=== PATIENT | male | born 1960 | race Caucasian/White ===

== ENCOUNTER 2017-03-24 18:39 | Inpatient (IN) | payer OTHER ==
--- NOTE | ~2017-03-24 | FU ---
[facility] Nutrition Therapy DATE: 04/13/17 Patient: JAVI RODRIGUEZ Physician: LASHANDA Address: [address] [place] [address] Room/Bed: [address] [place] [address], Zip: [place] [address] Admit Date: 03/24/17 Date of : 58 Height: 5 10 Weight: 158 72 NUTRITION MONITORING/FOLLOW-UP: Reason: nutrition follow-up 56 y/o male admitted for pancreatitis Anthropometrics: ht: 5'10" wt: 158# BMI: 18 -Previous weight 127#-165#, fluid retention noted Labs: Na+ 133, BUN 7, Creat 0.5, Ca++ 7.7, Alb 1.4 Meds: protonix, seroquel, aldactone, furosemide, lovenox, percocet, lopressor I&O's: 2400/1401. 1 BM Skin: previously noted Estimated Nutrition Needs: 1613 kcal 77-96 g protein Assessment: Chart reviewed, events noted. Pt seen previously in ICU, receiving enteral nutrition support. The pt is now on the floor on a slick + Dental + NTL diet. RD spoke with pt and pt at bedside. Pt reports eating 75-100% of both his breakfast and lunch. Pt reports that he is feeling much better. Pt was sitting up and talking. The pt did report some nausea. RD internal auditor offered to order supplements to ensure adequate PO intake and pt agreed to ensure pudding and magic cup BID. Pt had no questions at this time. RD will continue to follow. Dx: Inadequate oral intake r/t current clinical condition AEB NPO status, pt on vent -RESOLVED Inadequate nutrient intake r/t enteral nutrition intolerance AEB high residuals -RESOLVED New Dx: Adequate oral intake r/t diet advancement AEB pt reported tolerance of >50% of meals Intervention: 1. [place] + dental + [place] thickened liquids Monitoring, Evaluation and Goals: 1. Enteral nutrition; tolerate >80% of goal volume x 24 hours -MET/ NOT ACTIVE 2. Weights; promote weight maintenance to remain healthy BMI -IN PROGRESS 3. GI; promote regular GI function -IN PROGRESS/ MET [facility] Nutrition Therapy DATE: 04/13/17 Patient: JAVI RODRIGUEZ Physician: LASHANDA Address: [address] [place] [address] Room/Bed: [address] [place] [address], Zip: [place] [address] Admit Date: 03/24/17 Date of : 58 Height: 5 10 Weight: 158 72 New Goals: 1. Oral intake; consume tolerate >50% of all meals and/or supplements Monitor: -diet advancement -oral intake -weight -GI function -labs Recommendations: 1. Ensure pudding once a day and magic cup with dinner. 2. Once diet is advanced, recommend low-fat/high-protein diet. 3. Continue PUSH BENCH OPERATOR HELPER evaluation for diet advancement. RD will f/u per protocol as pt is at moderate nutritional risk. Respectfully, GENESIS ISBELL, editing internship Huey Wharton MS, RD, LD Food and Nutritional Services [facility] cc: client file
--- NOTE | ~2017-03-24 | CR72 ---
[facility] A Service of [facility] & [facility] RADIOLOGY TEXT RESULTS PATIENT: JAVI RODRIGUEZ LOCATION: [address]23 : [birth year] UNIT #: [id number] AGE: [address]: Milagros Palumbo MD SEX: M ORDER DR: [id number] [facility] [address] [facility] [address]. [place], [place] [address] [id number] I MR#: [id number] Acc #: [id number] NAME: JAVI RODRIGUEZ. : 1960 SEX: M STUDY DATE/TIME: 04/03/2017 19:02 UNIT: [facility] ROOM: [facility] STUDY DESCRIPTION: CR Chest Single View Portable Attending Physician: Milagros Palumbo M.D. Ordering Physician: Milagros Palumbo M.D. Primary Care Physician: Noe Alexandre M.D. MEDICAL IMAGING REPORT This report is preliminary unless electronic signature is present EXAM Portable chest HISTORY Pulmonary congestion today. Shortness of air. Tracheostomy placement. FINDINGS Tracheostomy has been placed since 04/01/2017 with its tip now 7.5 cm above the juve. The ETT has been removed. Remainder of the support devices appear in stable position. Persistent moderate infiltrates or atelectasis in the left mid and lower lung and in the right lower lung. Stable elevation of the right hemidiaphragm. Dictated by... Federico Buchanan M.D. THIS IS AN ELECTRONICALLY VERIFIED REPORT Federico Buchanan M.D. at 04/03/2017 10:53 PM DFL/alber TD: 04/03/2017 22:44 JOB #: [id number] MEDICAL IMAGING REPORT Page 1 of 1 COPY
--- NOTE | ~2017-03-24 | OR ---
Unit #: [id number] #: [id number] Patient: JAVI RODRIGUEZ [id number] [address] [address] [id number] I MR#: [id number] NAME: JAVI RODRIGUEZ. ROOM: 467 Date of Procedure: 03/26/2017 Admission Date: 03/24/2017 Surgeon: Andre Lino M.D. : 1960 Attending Physician: Milagros Palumbo M.D. Primary Care Physician: Noe Alexandre M.D. OPERATIVE REPORT PRIMARY CARE PHYSICIAN Noe Alexandre M.D. PREOPERATIVE DIAGNOSES The patient presented with history of upper abdominal pain, postprandial dyspepsia. In addition, he also abuses alcohol, has longstanding history of chronic recurrent relapsing pancreatitis. PROCEDURES PERFORMED Upper gastrointestinal endoscopy and biopsy. POSTOPERATIVE DIAGNOSES 1. The patient had moderately severe gastritis involving the prepyloric antral area. 2. There was also evidence of duodenitis involving the duodenal bulb. 3. Changes of portal hypertensive gastropathy involving the fundic mucosa. RECOMMENDATIONS The patient will undergo ERCP shortly. SEDATION USED MAC. DESCRIPTION OF PROCEDURE Following detailed explanation of the potential risks and complications of an upper endoscopy, namely perforation, bleeding, and complication related to sedation, the patient was brought to GI lab and laid in the left lateral decubitus position. Lubricated tip of the Olympus video upper endoscope was passed through the bite block into the proximal esophagus under direct vision. The entire esophageal mucosa was examined and appeared normal. Z-line was nicely demarcated, there being no esophagitis or hiatus hernia. The patient did not have any esophageal varices. The scope was then advanced into the gastric cavity and the latter was insufflated. Mucosa of the fundus, body, and antrum was examined. Changes of portal hypertensive gastropathy were noted in the fundic mucosa. In addition, mild antral erythema was noted. Pylorus was intubated with visualization of the duodenal bulb. The latter was noted to have focal patchy erosive duodenitis. Second and third part of duodenum were also abnormal and the mucosa being quite edematous. Upon withdrawal and retroflexion, incisura, cardia, and greater curve was examined and biopsy was obtained from the antrum for CLOtest. The scope was then withdrawn in the distal esophagus. Entire esophageal mucosa was Unit #: [id number] #: [id number] Patient: MICHAELJAVI Allan examined all the way up to pharynx. No additional findings were noted. The patient tolerated the procedure without any postprocedure complications. Dictated by... Alex Wang TD: 03/27/2017 16:40 JOB #: [id number] OPERATIVE REPORT Page 1 of 1 X Andre Lino MD X PROCEDURE OPERATIVE NOTE
--- NOTE | ~2017-03-24 | CT4 ---
[facility] A Service of [facility] RADIOLOGY TEXT RESULTS PATIENT: JAVI RODRIGUEZ LOCATION: [address] : [birth year] UNIT #: [id number] AGE: [address]: Milagros Palumbo MD SEX: M ORDER DR: [id number] [facility] [address] [facility]. [place], [place] [address] [id number] I MR#: [id number] Acc #: [id number] NAME: JAVI RODRIGUEZ. : 1960 SEX: M STUDY DATE/TIME: 04/05/2017 20:09 UNIT: [facility] ROOM: [facility] STUDY DESCRIPTION: CT Abd and Pelv Wo Cont Attending Physician: Milagors Palumbo M.D. Ordering Physician: Andre Lino M.D. Primary Care Physician: Noe Alexandre M.D. MEDICAL IMAGING REPORT This report is preliminary unless electronic signature is present EXAM CT abdomen and pelvis without contrast HISTORY Abdominal pain for 2 weeks. History of COPD, vomiting. COMPARISON 03/24/2017 TECHNIQUE Axial images performed through the abdomen and pelvis with oral contrast only. Multiplanar reconstructed images reviewed at a workstation. This CT exam was performed with one or more of the following radiation dose reduction techniques: automatic exposure control, adjustment of mA and/or kV according to patient size, and iterative reconstruction. FINDINGS The examination demonstrates increasing parenchymal opacities both lung bases may represent a combination of atelectasis and/or infiltrates. No significant effusion. The liver is abnormal with multiple foci of decreased attenuation could represent hepatic steatosis. Interval development of a large amount of ascites. Mild splenomegaly. Diffuse calcific pancreatitis. Biliary stent in place. Gallbladder unremarkable. The kidneys and adrenal glands are unremarkable. Increased small bowel gas and fluid with small bowel distension concerning for developing small bowel obstruction. Decompression of the distal small bowel loops. Aorta unremarkable. PELVIS: Grayson catheter noted within a decompressed bladder. Degenerative changes lower lumbar spine. IMPRESSION [facility] A Service of [facility] RADIOLOGY TEXT RESULTS PATIENT: JAVI RODRIGUEZ LOCATION: [facility] CICCU2-06 : 58 UNIT #: [id number] AGE: [address]: Milagros Palumbo MD SEX: M ORDER DR: 1. Interval development of a large amount of ascites with centralization of the bowel loops. 2. Multiple loops of distended small bowel with fluid and gas raises a concern for either ileus or developing small bowel obstruction. Focal point of obstruction not identified. 3. Continued abnormal appearance of the liver which previously was felt to represent geographic hepatic steatosis. 4. Calcific pancreatitis. 5. Biliary stent and NG tube in satisfactory positions. 6. Not mentioned above there is generalized body wall edema compatible with third spacing of fluid. Also demonstrated is extensive parenchymal opacities in both lung bases may represent a combination of atelectasis or infiltrates or edema. Dictated by... Carmen Alexis M.D. THIS IS AN ELECTRONICALLY VERIFIED REPORT Carmen Alexis M.D. at 04/06/2017 3:10 PM Naomy TD: 04/06/2017 10:21 JOB #: [id number] MEDICAL IMAGING REPORT Page 1 of 1 COPY
--- NOTE | ~2017-03-24 | FU ---
[facility] Nutrition Therapy DATE: 03/29/17 Patient: JAVI RODRIGUEZ Physician: LASHANDA Address: [address] [place] [address] Room/Bed: [address], Zip: [place] [address] Admit Date: 03/24/17 Date of : 58 Height: 5 10 Weight: 142 64.5 NUTRITION MONITORING/FOLLOW-UP: Reason: F/U RE: NPO IN ICU, PREVIOUSLY SEEN ON 3A FOR LOW BMI DX: 56 Y.O. MALE ADMITTED FOR PANCREATITIS Anthropometrics: 5'10" WT: 142# (64.5 KG) (PER BED SCALE), BMI 20.3 -PREVIOUS WEIGHT 58 KG Labs: CA++ 7.4, ALB 1.5 Meds: VERSED, FENTANYL, COLACE, ATIVAN, LOVENOX I&O's: 2805/2624. BM 03/29/17 Skin: DRY. EDEMA: SOME ASCITES. Estimated Nutrition Needs: 0193-7000 KCAL (25-30 KCAL/KG) 77-96.75 G PRO (1.2-1.5 G PRO) FLUID NEEDS CONSISTENT WITH KCALS Assessment: CHART REVIEWED, EVENTS NOTED. MR. RODRIGUEZ WAS PREVIOUSLY SEEN ON 3A FOR A LOW BMI. PT IS NOW NPO IN ICU ON THE VENT. PT WAS ADMITTED FOR PANCREATITIS. RD SPOKE WITH FAMILY ABOUT INITIATING ENTERAL FEEDINGS, THERE WERE NO QUESTIONS AT THIS TIME. PER BED SCALE, THE PT'S WEIGHT AT TIME OF VISIT IS 64.5 KG, INIDCATING A BMI OF 20.3. PLEASE SEE RECOMMENDATIONS FOR ENTERAL NUTRITION. RD WILL CONTINUE TO FOLLOW. Dx: INADEQUATE PROTEIN-ENERGY INTAKE R/T CLINICAL CONDITION, POOR LIFESYTYLE CHOICES AEB BMI 18.3, 77% IVW, NPO STATUS -ACTIVE/RESOLVED NEW DX: INADEQUATE ORAL INTAKE R/T CURRENT CLINICAL CONDITION AEB NPO STATUS, PT ON VENTILIATOR Intervention: 1. NPO Monitoring, Evaluation and Goals: 1. ORAL INTAKE; ADVANCE DIET, TOLERATE 50% OF MEALS WITHOUT C/O ABDOMINAL PAIN- NOT MET 2. WEIGHT; PREVENT WEIGHT LOSS, PROMOTE WEIGHT GAIN TOWARDS IBW- MET/IN-PROGRESS 3. GI; PROMOTE REGULAR GI FUNCTION- MET/IN-PROGRESS NEW GOALS [facility] Nutrition Therapy DATE: 03/29/17 Patient: JAVI RODRIGUEZ Physician: LASHANDA Address: [address] [place] [address] Room/Bed: [address], Zip: [place] [address] Admit Date: 03/24/17 Date of : 58 Height: 5 10 Weight: 142 64.5 1. ENTERAL NUTRITION; IF ENTERAL NUTRITION SUPPORT INITIATED, TOLERATE >80% OF ESTIMATED NUTRIENT NEEDS AT GOAL X 24 HOURS 2. WEIGHT; PROMOTE WEIGHT MAINTENANCE TO REMAIN AT HEALTHY BMI 3. GI; PROMOTE REGULAR GI FUNCTION Recommendations: 1. ONCE MEDICALLY FEASIBLE AND ENTERAL NUTRITION INDICATED, PLACE NASO/OROENTERIC TUBE AND INITATE ENTERAL NUTRITION SUPPORT WITH VITAL 1.5 @ 20 ML/HR AND ADVANCE 10 ML q 4 HOURS TO GOAL RATE OF 50 ML/HR X 24 HOURS. -THIS WILL PROVIDE 1800 KCAL, 81 G PRO, 1200 ML FREE H20 -FREE H20 FLUSHES PER MD 2. CONSIDER PRO-BIOTIC FOR PT WITH MOD-SEVERE PANCREATITIS. 3. IF TPN IS INDICATED, CONSULT RD. 4. IF ABLE TO TOLERATE PO INTAKE, ADVANCE DIET TOLERATED TO LOW-FAT/ 2 GRAM NA+ DIET. PT IS AT MOD/SEVERE NUTRITIONAL RISK. Respectfully, GENESIS ISBELL, TEXTILE CLOTHING AND FOOTWEAR MECHANIC TERESA NOVA MS, RD, LD Food and Nutritional Services [facility] cc: client file
--- NOTE | ~2017-03-24 | OR ---
Unit #: [id number] #: [id number] Patient: JAVI RODRIGUEZ [id number] [address] [address] [id number] I MR#: [id number] NAME: JAVI RODRIGUEZ ROOM: [facility] Date of Procedure: 04/09/2017 Admission Date: 03/24/2017 Surgeon: Umberto Morrow M.D. : 1960 Attending Physician: Milagros Palumbo M.D. Primary Care Physician: Noe Alexandre M.D. PROCEDURE OPERATIVE NOTE PROCEDURE PERFORMED Therapeutic paracentesis. INDICATIONS FOR PROCEDURE 1. Abdominal pain. 2. Severe distention. PREOPERATIVE DIAGNOSIS Ascites. COMPLICATIONS None. DESCRIPTION OF PROCEDURE An informed consent was obtained from the patient's family after explaining the benefit and risk of this procedure. The patient was prepped, positioned in a proper way, then his right side was cleaned with chlorhexidine, then sterile drape was applied to his abdomen. Then with the ultrasound guidance, needle was inserted in the right lower quadrant after numbing with lidocaine until fluid flow was obtained. Catheter was inserted over the needle and the needle was removed and the catheter was connected to suction and 4.9 L of clear yellow fluid was drained. The catheter was removed and Band-Aid was applied to the site. PERFORMING PHYSICIAN Umberto Morrow M.D. PILOT PLANT SUPERVISOR (1) , Nurse Practitioner. Dictated by... Umberto Morrow M.D. EA/candelaria TD: 04/09/2017 15:46 JOB #: [id number] Unit #: [id number] #: [id number] Patient: JAVI RODRIGUEZ PROCEDURE OPERATIVE NOTE Page 1 of 1 X UMBERTO YOUSIF MD X PROCEDURE OPERATIVE NOTE
--- NOTE | ~2017-03-24 | CR72 ---
[facility] A Service of [facility] & [facility] RADIOLOGY TEXT RESULTS PATIENT: JAVI RODRIGUEZ LOCATION: [address] : [birth year] UNIT #: [id number] AGE: [address]: Milagros Palumbo MD SEX: M ORDER DR: [id number] [facility] [address] [facility]. [place], [place] [address] [id number] I MR#: [id number] Acc #: [id number] NAME: JAVI RODRIGUEZ. : 1960 SEX: M STUDY DATE/TIME: 03/31/2017 5:49 UNIT: [facility] ROOM: [facility] STUDY DESCRIPTION: CR Chest Single View Portable Attending Physician: Milagros Palumbo M.D. Ordering Physician: Yaw Morrow M.D. Primary Care Physician: Noe Alexandre M.D. MEDICAL IMAGING REPORT This report is preliminary unless electronic signature is present EXAM Portable AP view of the chest COMPARISON March 29, 2017, March 28, 2017. INDICATION 56-year-old male with respiratory failure requiring endotracheal intubation for 7 days. Alcohol withdrawal. History of hypertension and COPD as well as dyspnea. FINDINGS Right arm PICC tip terminates in the lower SVC, grossly stable. Endotracheal tube is adequately positioned terminating approximately 5.4 cm above the juve, grossly stable. Gastric suction tube side port is within the stomach most likely, seen within the left upper quadrant of the abdomen. Separate density seen in the right upper quadrant of the abdomen is most consistent with a biliary stent better appreciated on AP view of the abdomen on March 28, 2017. Cardiomediastinal silhouette is within normal limits. There is elevation of the right hemidiaphragm with increased interstitial and alveolar opacities throughout the right lung with increasing interstitial and alveolar opacities, primarily in the lingula and throughout the left lower lobe. Findings are highly suspicious for pneumonia and/or aspiration. No large pleural effusion. No evidence of pneumothorax. There may be minimal left-sided pleural fluid. IMPRESSION Since comparison of 2 days ago, there are increased interstitial and alveolar opacities throughout both lungs with relative sparing of the right pulmonary apex and the left upper lobe. Findings are highly suspicious for aspiration and/or pneumonia. There may be trace left STS. [facility] A Service of [facility] RADIOLOGY TEXT RESULTS PATIENT: JAVI RODRIGUEZ LOCATION: [facility] CICCU2-06 : 58 UNIT #: [id number] AGE: [address]: Milagros Palumbo MD SEX: M ORDER DR: pleural effusion, new from comparison. Right arm PICC and endotracheal tube as well as gastric suction tube appear grossly adequately positioned. Biliary stent again noted. Dictated by... Antwan Delarosa M.D. THIS IS AN ELECTRONICALLY VERIFIED REPORT Antwan Delarosa M.D. at 04/06/2017 7:18 AM MARINE/gopal TD: 03/31/2017 07:25 JOB #: [id number] MEDICAL IMAGING REPORT Page 1 of 1 COPY
--- NOTE | ~2017-03-24 | HP ---
Unit #: [id number] #: [id number] Patient: JAVI RODRIGUEZ [id number] [address] [place], [place] [address] [id number] I MR#: [id number] NAME: JAVI RODRIGUEZ. ROOM: 327 Age: 56 Sex: M Admission Date: 03/24/2017 : 1960 Attending Physician: Robert Morrow M.D. Primary Care Physician: Noe Alexandre M.D. HISTORY AND PHYSICAL CHIEF COMPLAINT Abdominal pain. HISTORY OF PRESENT ILLNESS The patient is a 56-year-old male with history of alcohol abuse, cirrhosis, portal vein thrombosis, hypertension, and chronic obstructive pulmonary disease. Brought to the emergency room complaining of the abdominal pain. Patient describes the abdominal pain as achy and hard-hitting and is present for the last two weeks. The patient stated that the patient has cut down on the alcohol and drinks once a month for the last six months. The patient had a CT of the abdomen and pelvis that showed new geographic low attenuation throughout the liver. This is new since 11/04/2015. Probably represents geographic steatosis. Hepatic infarct possibly could have a similar appearance, but that is disfavored given the distribution. Chronic calcific pancreatitis, increased from the previous study. There may be a minimal amount of peripancreatic fluid, and it is difficult to exclude mild acute pancreatitis. The patient is being admitted for the above reasons. The patient's potassium was found to be 2.2 and patient was started on the potassium replacement protocol. PAST MEDICAL HISTORY History of cirrhosis, portal vein thrombosis, hypertension, COPD, and pancreatitis. ALLERGIES None. HOME MEDICATIONS Patient stopped taking medications. FAMILY HISTORY Positive for diabetes mellitus and lung cancer. SOCIAL HISTORY The patient is . He lives with his daughter and 2 grandchildren. He drinks 1/2-1 pint of whiskey. Claims that he drinks only once a month. He smokes one pack of tobacco daily. Denies any illicit drug abuse. REVIEW OF SYSTEMS Fourteen-point review of systems performed and only pertinent positive findings are described above and remaining are negative. PHYSICAL EXAMINATION GENERAL APPEARANCE: The patient is lying on the bed not in acute Unit #: [id number] #: [id number] Patient: JAVI RODRIGUEZ distress. VITAL SIGNS: Temperature 97.6, pulse 92, respiratory rate 16, blood pressure 111/90, and satting 96% at room air. HEENT: Head atraumatic and normocephalic. Pupils are equal, round, and reactive to light and accommodation. Extraocular movements are intact. NECK: Supple. LUNGS: Decreased air entry at the bases. HEART: Regular rate and rhythm. ABDOMEN: Soft. Positive bowel sounds. Tenderness in the epigastric region. EXTREMITIES: No cyanosis. No clubbing. NEUROLOGIC: Alert, awake, and oriented. No gross focal motor deficit. DIAGNOSTIC STUDIES LABORATORY: WBC 9.4, hemoglobin 10.9, hematocrit 32.5, and platelets 200. Sodium 130, potassium 2.2, chloride 87, bicarb 31, glucose 113, BUN 12, creatinine 0.8, AST 68, ALT 20, and alkaline phosphatase is 271, total bili 3.9, direct bili 1.5, and albumin 2.4. Lipase 134 and amylase 166. UA shows 1+ leukocyte esterase, positive nitrite, and 5-10 urine WBCs. IMAGING: CT of the abdomen and pelvis shows new geographic low attenuation throughout the liver. This is new since 11/04/2015. Probably represents geographic steatosis. Hepatic infarct possibly could have a similar appearance, but that is disfavored given the distribution. Chronic calcific pancreatitis, increased from the previous study. There may be a minimal amount of peripancreatic fluid, and it is difficult to exclude mild acute pancreatitis. A small amount of ascites in the upper abdomen and pelvis significantly improved from the previous study. Possible filling defect in the common duct measuring 9 mm. This possibility could be evaluated with MRCP or ERCP if deemed clinically appropriate. There is no appreciable intrahepatic bile duct dilation. ASSESSMENT AND PLAN 1. Abdominal pain. 2. Acute pancreatitis. 3. Cirrhosis. 4. Hypokalemia. Plan to admit the patient (1) patient to continue with the D5 initially at 125 mL/hour. Replace the potassium per protocol and control the pain (2) with the morphine, bowel rest, IV fluids, and pain medications and further recommendations will follow. Dictated by Alex Jacob TD: 03/25/2017 05:33 JOB #: [id number] Unit #: [id number] #: [id number] Patient: JAVI RODRIGUEZ HISTORY AND PHYSICAL Page 1 of 1 X ROBERT MORROW MD X HISTORY AND PHYSICAL
--- NOTE | ~2017-03-24 | CR72 ---
[facility] A Service of [facility] & [facility] RADIOLOGY TEXT RESULTS PATIENT: JAVI RODRIGUEZ LOCATION: [address] : [birth year] UNIT #: [id number] AGE: [address]: Milagros Palumbo MD SEX: M ORDER DR: [id number] [facility] [address] [facility]. [place], [place] [address] [id number] I MR#: [id number] Acc #: [id number] NAME: JAVI RODRIGUEZ : 1960 SEX: M STUDY DATE/TIME: 03/28/2017 16:10 UNIT: [facility] ROOM: [facility] STUDY DESCRIPTION: CR Chest Single View Portable Attending Physician: Milagros Palumbo M.D. Ordering Physician: Milagros Palumbo M.D. Primary Care Physician: Noe Alexandre M.D. MEDICAL IMAGING REPORT This report is preliminary unless electronic signature is present EXAM Portable chest x-ray, 03/28/2017 HISTORY Tube placement. Dobbhoff tube placement. Endotracheal tube placed. Unresponsive. Pancreatitis. FINDINGS AP radiograph of the chest is presented. Comparison 03/28/2017. Newly placed endotracheal tube terminates 3.7 cm above juve. Placement of an enteric tube. Incompletely visualized. The side port is probably near the junction of the proximal and middle thirds of stomach. Partially visualized stent-like structure right upper quadrant likely reflecting a common bile duct stent. Right upper extremity approach PICC terminates in the superior vena cava. Heart normal in size. Elevation right hemidiaphragm stable. Patchy and linear densities bilateral lung bases right greater than left. Nonspecific appearance which could involve components of atelectasis and pneumonia. Pneumonia more likely on the right. Given distribution, correlate with any clinical concern for aspiration. There is some minimal patchy densities in the right upper lung zone. Left upper lung zone clear. No definite pleural effusion and no pneumothorax. Dictated by... Robin Funez M.D. THIS IS AN ELECTRONICALLY VERIFIED REPORT Robin Funez M.D. at 03/29/2017 8:13 AM GEORGE/fabian [facility] A Service of [facility] & [facility] RADIOLOGY TEXT RESULTS PATIENT: JAVI RODRIGUEZ LOCATION: [address] : [birth year] UNIT #: [id number] AGE: [address]: Milagros Palumbo MD SEX: M ORDER DR: TD: 03/28/2017 23:35 JOB #: [id number] MEDICAL IMAGING REPORT Page 1 of 1 COPY
--- NOTE | ~2017-03-24 | OR ---
Unit #: [id number] #: [id number] Patient: JAVI RODRIGUEZ [id number] [address] [address] [id number] I MR#: [id number] NAME: JAVI RODRIGUEZ ROOM: [facility] Date of Procedure: 04/02/2017 Admission Date: 03/24/2017 Surgeon: Umberto Morrow M.D. : 1960 Attending Physician: Milagros Palumbo M.D. Primary Care Physician: Noe Alexandre M.D. PROCEDURE OPERATIVE NOTE PROCEDURE PERFORMED Endotracheal tube exchange via bronchoscopy. INDICATIONS FOR PROCEDURE Deflated cuff on the ET tube and loss of tidal volume. PREMEDICATIONS 1. Etomidate 20 mg IV x1. 2. Succinyl choline 50 mg IV x1. DESCRIPTION OF THE PROCEDURE The old ET tube was removed after placing an Eschmann in the airway to secure it and then a new ET tube, size 8 cm, was inserted over the bronchoscope into the trachea passing the vocal cord and the Eschmann was removed. Placement was confirmed with visualization through the bronchoscopy. The cuff was inflated and patient was connected again to the ventilator. Patient tolerated this procedure well with no immediate complications. Dictated by... Umberto Morrow M.D. EA/roberta TD: 04/02/2017 12:29 JOB #: [id number] PROCEDURE OPERATIVE NOTE Page 1 of 1 X UMBERTO YOUSIF MD X PROCEDURE OPERATIVE NOTE
--- NOTE | ~2017-03-24 | CO ---
Unit #: [id number] #: [id number] Patient: FRANCIS COREY [id number] [address] [address] [id number] I MR#: [id number] NAME: FRANCIS COREY ROOM: [facility] Age: 56 Sex: M Admission Date: 03/24/2017 : 1960 Attending Physician: Milagros Palumbo M.D. Primary Care Physician: Noe Alexandre M.D. Consultation Date: 03/28/2017 CONSULTATION REPORT REASON FOR CONSULTATION Decreased urinary output. HISTORY OF PRESENT ILLNESS Francis Corey is a 56-year-old, severe alcoholic, who has a history of portal vein thrombosis, hypertension, COPD, who underwent ERCP this past Wednesday, looks like he was admitted on 03/24/2017. He was recovering on the floor after his ERCP when he developed DTs. He required high amounts of oral Ativan. He was also noted to have decreased urine output. He was urgently transferred to the ICU. I was consulted due to decreased urinary output. PAST MEDICAL HISTORY 1. Cirrhosis. 2. Alcoholism. 3. Portal vein thrombosis. 4. Hypertension. 5. COPD. 6. Chronic pancreatitis. ALLERGIES None. MEDICINES Current medicines in the hospital include Zosyn, albuterol, Protonix, Lopressor, Levaquin, magnesium, potassium, Ativan, and hydrocodone. REVIEW OF SYSTEMS Unobtainable as the patient was emergently intubated. FAMILY HISTORY Unobtainable. SOCIAL HISTORY Again, it appears that he is an alcoholic and he is drinking a pint of liquor per day. PHYSICAL EXAMINATION VITAL SIGNS: Temperature 98.2, pulse is 114, and blood pressure 146/86. I and O shows 3276 in. Urine output of 100 mL. One bout of emesis and two bowel movements. GENERAL: The patient has been emergently intubated, has an ET-tube, and is on the ventilator. He appears older than his stated age. He is pale. No distress is noted. Unit #: [id number] #: [id number] Patient: FRANCIS COREY HEENT: No icterus or eye drainage noted. NECK: Without JVD, lymphadenopathy, or carotid bruit. CHEST: Very coarse breath sounds, right is worse than left. CARDIAC: S1 and S2 appears to be regular. He is tachycardic. ABDOMEN: Distended and soft with present bowel sounds that are hypoactive. EXTREMITIES: No cyanosis, clubbing, or edema. DIAGNOSTIC STUDIES Laboratory data: ABG shows pH of 7.49, pCO2 of 28, pO2 of 71, and bicarbonate of 22. Glucose 109, BUN 13, creatinine 1.1, sodium 133, potassium 3.9, chloride 104, bicarbonate 20, calcium 7.6, phosphorus 2.6, and magnesium 1.8. Albumin 1.9. Indirect bilirubin 2.8, AST 56, amylase 171, and lipase 87. Urinalysis checked on 03/24/2017 showed positive nitrites, 1+ protein, trace blood, white blood cell count in the urine was 5 to 10, rbc's 5 to 10. Urine culture showed insignificant growth. ASSESSMENT AND PLAN 1. Oliguria. He is now in the intensive care unit and a Grayson catheter has been placed with return of 300 mL of urine. He has quickly filled his catheter bag. We will increase his IV fluid rate to 150 mL/h. He has normal left ventricular function and we will also send a urinalysis it seems that he had urinary retention. 2. Delirium tremens. He was sent to the ICU emergently, was intubated, and will be sedated. 3. Distended abdomen. He does have bowel sounds. It is soft, but certainly he will be evaluated by GI. 4. Alcoholism. Thank you very much for allowing me to see Francis Corey in consultation. We will follow closely with you. Dictated by... Juana Vidal M.D. BESS/rocky TD: 03/29/2017 13:20 JOB #: [id number] CONSULTATION REPORT Page 1 of 1 X Juana Vidal MD X CONSULTATION REPORT
--- NOTE | ~2017-03-24 | CR84 ---
[facility] A Service of [facility] RADIOLOGY TEXT RESULTS PATIENT: JAVI RODRIGUEZ LOCATION: [facility] 327- : 58 UNIT #: [id number] AGE: [address]: Milagros Palumbo MD SEX: M ORDER DR: [id number] [id number] [facility]. [place], [place] [address] [id number] I MR#: [id number] Acc #: [id number] NAME: JAVI RODRIGUEZ : 1960 SEX: M STUDY DATE/TIME: 03/26/2017 18:04 UNIT: [address] ROOM: [facility] STUDY DESCRIPTION: CR ERCP Biliary and Pancr SI Attending Physician: Milagros Palumbo M.D. Ordering Physician: Andre Lino M.D. Primary Care Physician: Noe Alexandre M.D. MEDICAL IMAGING REPORT This report is preliminary unless electronic signature is present EXAM ERCP HISTORY Pancreatitis. Common bile duct stricture. Abdomen pain for 2 weeks and vomiting. Fluoroscopy time 3 minutes. FINDINGS Eight intraoperative fluoroscopic spot films of the ERCP procedure were performed by the attending endoscopist. Injection of the common bile duct demonstrates moderate tapered stricture of the mid common bile duct with mild dilatation of left and right intrahepatic ducts. Approximately 4 mm round lucent filling defect in the proximal common hepatic duct, could be a small air bubble versus stone. Biliary stent was placed at the conclusion of the procedure. The pancreatic duct was not injected. IMPRESSION 1. Moderate tapered stricture of the mid common bile duct. 2. Approximately 5 mm round filling defect in the common hepatic duct on several images could be an intraductal stone. 3. Mild intrahepatic biliary ductal dilatation. 4. Biliary stent was placed at the conclusion of the procedure. Dictated by... Federico Buchanan M.D. THIS IS AN ELECTRONICALLY VERIFIED REPORT Federico Buchanan M.D. at 03/27/2017 11:48 AM DFL/alber [facility] A Service of [facility] RADIOLOGY TEXT RESULTS PATIENT: JAVI RODRIGUEZ LOCATION: [facility] 327-01 : [birth year] UNIT #: [id number] AGE: [address]: Milagros Palumbo MD SEX: M ORDER DR: TD: 03/27/2017 01:56 JOB #: [id number] MEDICAL IMAGING REPORT Page 1 of 1 COPY
--- NOTE | ~2017-03-24 | CR72 ---
[facility] A Service of [facility] & [facility] RADIOLOGY TEXT RESULTS PATIENT: JAVI RODRIGUEZ LOCATION: [address] : [birth year] UNIT #: [id number] AGE: [address]: Milagros Palumbo MD SEX: M ORDER DR: [id number] [facility] [address] [facility]. [place], [place] [address] [id number] I MR#: [id number] Acc #: [id number] NAME: JAVI RODRIGUEZ : 1960 SEX: M STUDY DATE/TIME: 03/29/2017 6:23 UNIT: [facility] ROOM: [facility] STUDY DESCRIPTION: CR Chest Single View Portable Attending Physician: Milagros Palumbo M.D. Ordering Physician: Reg Chowdhury M.D. Primary Care Physician: Noe Alexandre M.D. MEDICAL IMAGING REPORT This report is preliminary unless electronic signature is present EXAM Portable chest HISTORY Respiratory failure on a ventilator. HISTORY Pancreatitis. History of alcohol abuse, cirrhosis. COMPARISON 03/28/2017 FINDINGS Tubes and lines remain in satisfactory position unchanged. Continued right-sided volume loss with elevation of right hemidiaphragm and right basilar atelectasis. Coarse parenchymal markings suggest underlying interstitial disease and fibrosis. No dense airspace disease. No sizeable effusions. No visible pneumothorax. Dictated by... Carmen Alexis M.D. THIS IS AN ELECTRONICALLY VERIFIED REPORT Carmen Alexis M.D. at 03/29/2017 3:55 PM Lela TD: 03/29/2017 10:19 JOB #: [id number] MEDICAL IMAGING REPORT Page 1 of 1 COPY
--- NOTE | ~2017-03-24 | CR7 ---
[facility] A Service of [facility] & [facility] RADIOLOGY TEXT RESULTS PATIENT: JAVI RODRIGUEZ LOCATION: [address] : [birth year] UNIT #: [id number] AGE: [address]: Milagros Palumbo MD SEX: M ORDER DR: [id number] [address] [place], [place] [address] [id number] I MR#: [id number] Acc #: [id number] NAME: JAVI RODRIGUEZ : 1960 SEX: M STUDY DATE/TIME: 04/08/2017 14:55 UNIT: [facility] ROOM: [facility] STUDY DESCRIPTION: CR Abdomen Single AP View Attending Physician: Milagros Palumbo M.D. Ordering Physician: Milagros Palumbo M.D. Primary Care Physician: Noe Alexandre M.D. MEDICAL IMAGING REPORT This report is preliminary unless electronic signature is present EXAM AP of the abdomen. INDICATIONS Dobbhoff tube placement. COMPARISON 04/06/17 FINDINGS Large-bore NG tube has been removed and a new Dobbhoff tube has been placed with the tip projecting in the region of the stomach. IMPRESSION Dobbhoff tube tip projects in the region of the stomach. Dictated by... Amaury Alexis M.D. THIS IS AN ELECTRONICALLY VERIFIED REPORT Amaury Alexis M.D. at 04/09/2017 7:18 AM KRISTIN/angela TD: 04/08/2017 20:49 JOB #: [id number] MEDICAL IMAGING REPORT Page 1 of 1 COPY
--- NOTE | ~2017-03-24 | CR72 ---
[facility] A Service of [facility] & [facility] RADIOLOGY TEXT RESULTS PATIENT: JAVI RODRIGUEZ LOCATION: [address] : [birth year] UNIT #: [id number] AGE: [address]: Milagros Palumbo MD SEX: M ORDER DR: [id number] [facility] [address] [facility]. [place], [place] [address] [id number] I MR#: [id number] Acc #: [id number] NAME: JAVI RODRIGUEZ. : 1960 SEX: M STUDY DATE/TIME: 04/05/2017 0507 UNIT: [facility] ROOM: [facility] STUDY DESCRIPTION: CR Chest Single View Portable Attending Physician: Milagros Palumbo M.D. Ordering Physician: Reg Chowdhury M.D. Primary Care Physician: Noe Alexandre M.D. MEDICAL IMAGING REPORT This report is preliminary unless electronic signature is present EXAM Portable chest, 04/05 at 0507. INDICATION Respiratory failure. Ventilator patient. FINDINGS AP portable chest is compared with 04/04/2017. Right arm PICC and tracheostomy tube remain in good position. There is continued elevation of the right hemidiaphragm. Coarse bilateral infiltrates with a basilar predominance are stable. No pneumothorax. Dictated by... Ty Araujo Jr., M.D. THIS IS AN ELECTRONICALLY VERIFIED REPORT Ty Araujo Jr., M.D. at 04/05/2017 9:16 PM ANAK/nancy TD: 04/05/2017 11:20 JOB #: [id number] MEDICAL IMAGING REPORT Page 1 of 1 COPY
--- NOTE | ~2017-03-24 | CR72 ---
[facility] A Service of [facility] & [facility] RADIOLOGY TEXT RESULTS PATIENT: JAVI RODRIGUEZ LOCATION: [address] : [birth year] UNIT #: [id number] AGE: [address]: Milagros Palumbo MD SEX: M ORDER DR: [id number] [facility] [address] [facility]. [place], [place] [address] [id number] I MR#: [id number] Acc #: [id number] NAME: JAVI RODRIGUEZ : 1960 SEX: M STUDY DATE/TIME: 04/01/2017 5:10 UNIT: [facility] ROOM: [facility] STUDY DESCRIPTION: CR Chest Single View Portable Attending Physician: Milagros Palumbo M.D. Ordering Physician: Yaw Morrow M.D. Primary Care Physician: Noe Alexandre M.D. MEDICAL IMAGING REPORT This report is preliminary unless electronic signature is present EXAM Portable chest INDICATION Respiratory failure. Follow up endotracheal tube and infiltrates. FINDINGS This portable view of the chest is compared with yesterday's study. The PIC catheter, nasogastric tube and endotracheal tube remain in good position. There has been no change in the bilateral diffuse infiltrates. Dictated by... Ab Chan M.D. THIS IS AN ELECTRONICALLY VERIFIED REPORT Ab Chan M.D. at 04/01/2017 1:21 PM MANJIT/gopal TD: 04/01/2017 06:36 JOB #: [id number] MEDICAL IMAGING REPORT Page 1 of 1 COPY
--- NOTE | ~2017-03-24 | CO ---
Unit #: [id number] #: [id number] Patient: JAVI COREY [id number] [address] [address] [id number] I MR#: [id number] NAME: JAVI COREY. ROOM: 327 Age: 56 Sex: M Admission Date: 03/24/2017 : 1960 Attending Physician: Milagros Palumbo M.D. Primary Care Physician: Noe Alexandre M.D. Consultation Date: 03/25/2017 CONSULTATION REPORT REASON FOR CONSULTATION Possible common bile duct stone. HISTORY OF PRESENT ILLNESS Mr. Corey is a 56-year-old white gentleman who has a longstanding history of chronic calcific alcoholic pancreatitis. The patient continues to imbibe alcohol, although he states he has cut down considerably. He is admitted with history of diffuse upper abdominal pain and during his evaluation has been found to have elevated pancreatic enzymes, along with a possible stone in the common bile duct on a CT scan. PAST MEDICAL HISTORY His past medical history is significant for history of alcohol abuse, portal vein thrombosis, cirrhosis of the liver, as well as COPD. PAST SURGICAL HISTORY He denies any history of abdominal surgeries MEDICATIONS AT HOME The patient stopped taking his medications prior to admission. ALLERGIES He has no known drug allergies. SOCIAL HISTORY He continues to drink, albeit much less than before, and also smokes cigarettes. Before, in the past, he used to drink about a pint of whiskey daily. FAMILY HISTORY Significant for diabetes and lung cancer. REVIEW OF SYSTEMS A detailed review of organ systems does reveal some recent weight loss. There is no history of fevers, chills or rigors. No history of headache, seizures, chest pain or syncope. No history of cough, expectoration or hemoptysis. No history of dysuria, hematuria or polyuria. No history of focal seizures or extremity weakness. The patient does mention history of diffuse upper abdominal pain. PHYSICAL EXAMINATION GENERAL: On examination, he is awake, alert and oriented and appears comfortable. VITAL SIGNS: His vital signs are stable with a temperature of 98.3, pulse Unit #: [id number] #: [id number] Patient: JAVI COREY 80 per minute and regular, respiratory rate 20, blood pressure was 98/67. He weighs 127 pounds. Baseline weight used to be 157 pounds in the past, 3-4 years ago; therefore, he has lost substantial weight. CARDIOVASCULAR EXAMINATION: Normal heart sounds. No murmurs on auscultation. RESPIRATORY: The lungs reveal normal breath sounds, good air entry. ABDOMEN: The abdomen is soft and nontender. The liver and spleen are not palpable. Bowel sounds are normal. DIAGNOSTIC STUDIES LABORATORY: Lab evaluation shows a BUN and creatinine of 10 and 0.7. Total bilirubin is 3.9. AST and ALT are 68 and 20. Amylase and lipase 95 and 71. His hemoglobin is 8.5, MCV 103. IMAGING: CT scan of the abdomen shows possible CBD stone, along with underlying cirrhosis. CLINICAL IMPRESSION 1. 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 2. Chronic ethanolic calcific pancreatitis. 3. Continued alcohol abuse. 4. Weight loss. 5. Possible common bile duct stone. Although an ERCP is indicated, it is clearly a very high risk procedure in view of the patient's concomitant (1) disease. Therefore, extremely caution will be used. Despite the latter, the patient was explained the possible complications of perforation, bleeding, complications related to sedation, as well as (2) pancreatitis. The procedure will be done either later today or tomorrow depending on availability of staff. Thank you very much for asking me to see this pleasant gentleman. I appreciate the consult. Dictated by... Alex Wang TD: 03/26/2017 08:09 JOB #: [id number] CONSULTATION REPORT Page 1 of 1 X Andre Lino MD CONSULTATION REPORT
--- NOTE | ~2017-03-24 | CR72 ---
[facility] A Service of [facility] & [facility] RADIOLOGY TEXT RESULTS PATIENT: JAVI RODRIGUEZ LOCATION: [address] : 58 UNIT #: [id number] AGE: [address]: Milagros Palumbo MD SEX: M ORDER DR: [id number] [facility] [address] [facility]. [place], [place] [address] [id number] I MR#: [id number] Acc #: [id number] NAME: JAVI RODRIGUEZ : 1960 SEX: M STUDY DATE/TIME: 03/27/2017 19:59 UNIT: [facility] ROOM: 462 STUDY DESCRIPTION: CR Chest Single View Portable Attending Physician: Milagros Palumbo M.D. Ordering Physician: Milagros Palumbo M.D. Primary Care Physician: Noe Alexandre M.D. MEDICAL IMAGING REPORT This report is preliminary unless electronic signature is present EXAM Single view of the chest dated 03/27/2017 COMPARISON Single view chest dated 07/16/2015. HISTORY History of pancreatitis. Symptoms began 3 days ago. FINDINGS Single view of the chest was attempted twice. Bibasilar atelectasis/infiltrate is noted with a horizontal band of opacity extending from the inferior aspect of the left hilum to the lateral aspect of the left hemithorax at the junction of the mid to lower third of the lung zones. These are suggestive of atelectasis/mild infiltrate, worse when compared to the previous study from 2 years ago. No obvious significant pleural effusion or pneumothorax is seen. Heart is of normal size. There is some prominence of bilateral kirstie, stable. Dictated by... Marquez Ramon M.D. THIS IS AN ELECTRONICALLY VERIFIED REPORT Marquez Ramon M.D. at 03/29/2017 5:10 PM CPR/mjs TD: 03/28/2017 07:33 JOB #: [id number] MEDICAL IMAGING REPORT Page 1 of 1 COPY
--- NOTE | ~2017-03-24 | DS ---
Unit #: [id number] #: [id number] Patient: JAVI RODRIGUEZ [id number] [address] [address] [id number] I MR#: [id number] NAME: JAVI RODRIGUEZ ROOM: 228 Age: 57 Sex: M Admission Date: 03/24/2017 : 1960 Discharge Date: Attending Physician: Milagros Palumbo M.D. Primary Care Physician: Noe Alexandre M.D. DISCHARGE SUMMARY ADDENDUM Please revert to Transfer of Care Summary dictated on April 09, 2017, for details of initial part of hospital course. Subsequently, from April 09, 2017, until today, patient's tracheotomy was capped, and subsequently plans were made by pulmonary services for possible decannulation later this week. Patient also developed mild ascites, and plans are for paracentesis later today. Essentially, patient was kept on routine medications. Pulmonary services continued to follow the patient. Medications were adjusted appropriately. Please see below for new medication list. [facility] clinically [facility] and/or insurance is approved. FINAL DISCHARGE DIAGNOSES Unchanged from previous summary. FINAL DISCHARGE MEDICATIONS 1. Combivent aerosol solution q.4 hours. 2. Albuterol nebulized solution q.2 p.r.n. 3. Pulmicort nebulized solution b.i.d. 4. Zofran 4 mg IV q.6 p.r.n. 5. Mylanta 80 mg p.o. q.6 p.r.n. 6. Seroquel 50 mg at bedtime. 7. Senokot 10 mL p.o. b.i.d. 8. Lasix 20 mg daily. 9. Florastor 250 mg b.i.d. 10. Morehead 5/325 at 1 tablet p.o. q.6 p.r.n. 11. Aldactone 50 mg daily. 12. Protonix 40 mg p.o. b.i.d. DISCHARGE CONDITION Stable. DISCHARGE DISPOSITION [facility] for ongoing care. Dictated by... Milagros Palumbo M.D. ISN/am Unit #: [id number] #: [id number] Patient: JAVI RODRIGUEZ TD: 04/19/2017 15:19 JOB #: [id number] DISCHARGE SUMMARY Page 1 of 1 X Milagros Palumbo MD X DISCHARGE SUMMARY
--- NOTE | ~2017-03-24 | A ---
[facility] Nutrition Therapy DATE: 03/25/17 Patient: JAVI RODRIGUEZ Physician: [email or web address] Address: [address] [place] [address] Room/Bed: [address] [place] [address], Zip: [place] [address] Admit Date: 03/24/17 Date of : 58 Height: 5 10 Weight: 127 58 NUTRITIONAL ASSESSMENT: REASON: Low BMI 56 yo male admitted for pancreatitis, abdominal pain PMH: EtOH abuse, cirrhosis, HTN, COPD, pancreatitis Anthropometrics: Ht: 5'10" Wt: 58 kg BMI: 18.3 IBW: 75.4 kg, 77% IBW Labs: Na+ 132 K+ 2.9 Cl- 94 Gluc 134 Ca++ 7.6 Alb 2.4 Mg++ 1.4 Amyl 95 Lipase 71 Meds: MgSO4, KCl, D5%, NaCl I/O & Bowel function: 1440/252, last BM 03/24, abdominal pain Skin Integrity: Dry skin Edema: Small amount of ascites Estimated Nutrition Needs: Increased due to low body weight and pancreatitis Diet: NPO Assessment: Chart reviewed, events noted. 56 yo male admitted for pancreatitis with h/o EtOH abuse, cirrhosis, and pancreatitis. Per MD note, the pt reports that he has decreased his alcohol intake. Pt is NPO/ bowel rest until GI can further assess. RD spoke with the pt at bedside. Pt believes he has gained weight recently; however, he is unable to provide weight history information/ time frame. Pt states "I eat when I'm hungry" when asked about typical intake. RD stressed the importance of adequate protein-calorie intake, and the pt stated that he is hungry at this time. RD explained to the pt that he is on bowel rest at this time. Pt does report continued dull, achy abdominal pain. Of note, the pt is 77% of his IBW with a BMI of 18.3. Dx: Inadequate protien-energy intake RT clinical condition, poor lifestyle choices AEB BMI 18.3, 77% IBW, NPO status. Intervention: 1. Advance to a low fat/ 2 gram Na+ diet as tolerated 2. EN if unable to advance diet 3. Supplements as appropriate Monitoring, Evaluation and Goals: [facility] Nutrition Therapy DATE: 03/25/17 Patient: JAVI RODRIGUEZ Physician: LASHANDA Address: [address] [place] [address] Room/Bed: [address] [place] [address], Zip: [place] [address] Admit Date: 03/24/17 Date of : 58 Height: 5 10 Weight: 127 58 1. Oral intake; advance diet, tolerate >50% of meals without c/o abdominal pain 2. Weight; prevent weight loss, promote weight gain towards IBW 3. GI; promote regular GI function Recommendations: 1. Once medically feasible, advance the pt to a clear liquid diet and order Ensure clear TID. 2. If the pt is able to tolerate clear liquids without c/o abdominal pain, advance to a low fat/ 2 gram Na+ diet with snacks in between meals and Ensure BID as tolerated. 2. If unable to advance to PO diet, consider initiating enteral nutrition with Vital 1.5. RD will follow up to make appropriate recommendations. Pt is at moderate nutritional risk. Respectfully, ALICIA BARAJAS RD, LD Food and Nutritional Services [facility] cc: client file
--- NOTE | ~2017-03-24 | TOC ---
Unit #: [id number] #: [id number] Patient: JAVI RODRIGUEZ [id number] [address] [place], [place] [address] [id number] I MR#: [id number] NAME: JAVI RODRIGUEZ. ROOM: [facility] Age: 56 Sex: M Admission Date: 03/24/2017 : 1960 Attending Physician: Milagros Palumbo M.D. Primary Care Physician: Noe Alexandre M.D. TRANSFER OF CARE SUMMARY REASON FOR ADMISSION Acute on chronic pancreatitis. HISTORY OF PRESENT ILLNESS/HOSPITAL COURSE The patient originally was admitted secondary to acute on chronic pancreatitis, being evaluated by Dr. Lino in the initial part of his hospital stay. Was noted to have a biliary stricture. He underwent ERCP with common bile duct stent placement. Afterward, diet was being resumed. He acutely decompensated, began having findings consistent with alcohol withdrawal, as well as persistent hypotension. His mental status also declined fairly rapidly, consistent with septic shock picture. Subsequently, consultation was placed to Dr. Chowdhury. Patient was transferred to ICU and subsequently intubated for airway protection. Through his ICU course, he had difficulty weaning from the ventilator. He underwent tracheostomy placement and is currently stable with his trach. Secondary to sinus tachycardia, hypotension and volume depletion, consultation was also placed to Dr. Arevalo and associates of cardiology service who did follow the patient's initial part of ICU stay and maintained the patient on pressor support. Since that time, they have gradually been weaned. Renal service was also consulted secondary to acute kidney injury, as well as decreased urine output. Dr. Canas and associates followed and have since signed off. Recommendation was made for PEG tube placement secondary to tracheostomy; however, the patient was noted to have acute ascites, underwent paracentesis with approximately 5 liters removed, as well. From Dr. Lino's standpoint, he felt as though the PEG tube placement was contraindicated and recommended reevaluation of swallow, as well as p.o. diet. Those are currently pending as of today. ID service has been consulted for antibiotic management, and they continue to follow the patient. At this point in time, he will require placement to a long-term acute care facility, perhaps [facility], at time of discharge. This may be done the early part of next week on 04/14/2017. CURRENT CLINICAL DIAGNOSES 1. Acute on chronic respiratory failure. Unit #: [id number] #: [id number] Patient: JAVI RODRIGUEZ 2. Acute on chronic pancreatitis status post stent placement in the common bile duct. 3. Sepsis/hypovolemic shock. 4. Probable aspiration pneumonia. 5. Anemia. Baseline hemoglobin between 7 to 8. 6. Sinus tachycardia/hypotension. 7. Cirrhosis. 8. Alcohol abuse. 9. Tobacco abuse. 10. Toxic metabolic encephalopathy, multifactorial in origin. 11. Poor nutritional status secondary to alcohol abuse. 12. Acute kidney injury/chronic kidney disease. Dictated by... Milagros Palumbo M.D. VEE/renee TD: 04/10/2017 14:57 JOB #: [id number] TRANSFER OF CARE SUMMARY Page 1 of 1 X Milagros Palumbo MD X TRANSFER OF CARE SUMMARY
--- NOTE | ~2017-03-24 | FU ---
[facility] Nutrition Therapy DATE: 04/02/17 Patient: JAVI RODRIGUEZ Physician: LASHNADA Address: [address] [place] [address] Room/Bed: [address], Zip: [place] [address] Admit Date: 03/24/17 Date of : 58 Height: 5 10 Weight: 167 76 NUTRITION MONITORING/FOLLOW-UP: Reason: follow-up Dx: pancreatitis Anthropometrics: ht: 5'10" wt: 167# (76 kg) BMI: 25 -Admit weight 127# Labs: Cl- 115, Glu 137, Ca++ 7.8, Alb 1.6, Mg++ 1.5, Lip 87 Meds: bumex, ativan, lovenox, D5%, versed, fentanyl, protonix, colace I&O's: 3202/1790. Last BM 04/01 Skin: bruise-arm, redness-feet Edema: ABD- ascites, BUE, BLE -general, hands -pitting Estimated Nutrition Needs: 3838-3054 kcals (25-30 kcal/kg) 77-96 g pro (1.2-1.5 g/kg) Assessment: Chart reviewed, events noted. Pt remain intubated and sedated in ICU. Pt admitted for pancreatitis. Pt had been receiving previously recommended enteral nutrition suport of Vital 1.5. Per RN report, the pt has not been tolerating the EN, experiencing abdominal pain and having high residuals(~[address] visited pt at bedside and the EN has been turned off at this time. Please see recommendations for TPN, RD will follow. Dx: Inadequate oral intake r/t current clinical condition aeb NPO status, pt on Vent.-ACTIVE New Dx: Inadeqaute nutrient intake r/t enteral nutrition intolerance AEB high residuals ~250 ml), abdominal pain. Intervention: 1. Enteral nutrition off at time of visit Monitoring, Evaluation and Goals: 1. Enteral nutrition; tolerate >80% of goal volume x 24 hours -NOT MET 2. Weight; promote weight maintainence to remain at healthy BMI -NOT MET/IN-PROGRESS 3. GI; promote regular GI function -NOT MET/IN-PROGRESS New Goals: [facility] Nutrition Therapy DATE: 04/02/17 Patient: JAVI RODRIGUEZ Physician: LASHANDA Address: [address] [place] [address] Room/Bed: [address], Zip: [place] [address] Admit Date: 03/24/17 Date of : 58 Height: 5 10 Weight: 167 76 1. If TPN initiated, provide >80% estimated nutrient needs at goal x 24 hours Monitor: -Labs; glucose and electrolytes -Weight -GI function Recommendations: 1. Once medically feasible, Re-initiate enteral nutrition support with Vital 1.5 @ 20 mL/hr and advance 10 mL q 10 hours as tolerated to goal rate of 50 mL/hr x 24 hours. This provides 1800 kcals, 81 g pro, 912 mL H20. Add free h20 flushes per MD 2. If enteral nutrition continues to not be tolerated and TPN indicated, begin TPN (Dextrose 25%) at 20 mL/hr and advance 10 mL q 12 hours to goal rate of 80 mL/hr x 24 hours. This will provide 1530 kcals, 90 g pro, 1890 total kcals (GUR 4.8). Hold lipids at this time 2' pancreatitis dx, RD will re-evaluate at follow up. 3. Once medically feasible, if pt extubated, recommend SLOT TECHNICIAN evaluation for PO intake. If PO intake appropriate, advance to clear liquid diet as tolerated. 4. Once diet advanced, recommend low-fat/low-fiber diet as tolerated. RD will f/u per protocol as pt is moderately/severely compromised. Respectfully, GENESIS ISBELL, graphics intern Huey Wharton MS, RD, LD Food and Nutritional Services [facility] cc: client file
--- NOTE | ~2017-03-24 | OR ---
Unit #: [id number] #: [id number] Patient: JAVI RODRIGUEZ [id number] [address] [address] [id number] I MR#: [id number] NAME: JAVI RODRIGUEZ ROOM: 228 Date of Procedure: 04/15/2017 Admission Date: 03/24/2017 Surgeon: Umberto Morrow M.D. : 1960 Attending Physician: David Moss M.D. Primary Care Physician: Noe Alexandre M.D. PROCEDURE OPERATIVE NOTE PREOPERATIVE DIAGNOSIS Pancreatitis and respiratory failure. PROCEDURE PERFORMED Tracheostomy tube exchange and downsizing. INDICATION FOR PROCEDURE Facilitate diet and speech. COMPLICATION None. DESCRIPTION OF THE PROCEDURE The patient was prepped and positioned in a proper way. Then, his old trach was deflated and it was removed with no complications. A new percutaneous tracheostomy, Shiley, size 6, cuffless was inserted over the obturator into the old trach with no complication. The obturator was removed and the new cap was applied. His oxygen will be converted to nasal cannula and we will keep his trach capped as tolerated. The patient tolerated his procedure well with no immediate complication. Dictated by... Umberto Morrow M.D. EA/master TD: 04/15/2017 11:31 JOB #: [id number] PROCEDURE OPERATIVE NOTE Page 1 of 1 X UMBERTO YOUSIF MD X PROCEDURE OPERATIVE NOTE
--- NOTE | ~2017-03-24 | CR7 ---
[facility] A Service of [facility] RADIOLOGY TEXT RESULTS PATIENT: JAVI RODRIGUEZ LOCATION: [address] : [birth year] UNIT #: [id number] AGE: [address]: Milgaros Palumbo MD SEX: M ORDER DR: [id number] [facility] [address] [facility]. [place], [place] [address] [id number] I MR#: [id number] Acc #: [id number] NAME: JAVI RODRIGUEZ : 1960 SEX: M STUDY DATE/TIME: 04/09/2017 15:05 UNIT: [facility] ROOM: [facility] STUDY DESCRIPTION: CR Abdomen Single AP View Attending Physician: Milagros Palumbo M.D. Ordering Physician: Milagros Palumbo M.D. Primary Care Physician: Noe Alexandre M.D. MEDICAL IMAGING REPORT This report is preliminary unless electronic signature is present EXAM Portable abdomen HISTORY Dobbhoff tube placement. FINDINGS AP view of the abdomen is obtained. Dobbhoff feeding tube is in the distal stomach. There is a common duct stent in place in the right upper quadrant. Bilateral infiltrates are seen in the lungs. CONCLUSION Tip of the flexible feeding tube is in the distal stomach. Dictated by... Robin Guillaume M.D. THIS IS AN ELECTRONICALLY VERIFIED REPORT Robin Guillaume M.D. at 04/10/2017 9:32 AM SHER/fabian TD: 04/09/2017 21:26 JOB #: [id number] MEDICAL IMAGING REPORT Page 1 of 1 COPY
--- NOTE | ~2017-03-24 | CR72 ---
[facility] A Service of [facility] RADIOLOGY TEXT RESULTS PATIENT: JAVI RODRIGUEZ LOCATION: [facility] CICCU2-06 : 58 UNIT #: [id number] AGE: [address]: Milagros Palumbo MD SEX: M ORDER DR: [id number] [facility] [address] [facility]. [place], [place] [address] [id number] I MR#: [id number] Acc #: [id number] NAME: JAVI RODRIGUEZ : 1960 SEX: M STUDY DATE/TIME: 03/28/2017 3:56 UNIT: [facility] ROOM: 467 STUDY DESCRIPTION: CR Chest Single View Portable Attending Physician: Milagros Palumbo M.D. Ordering Physician: Cindy Moreno M.D. Primary Care Physician: Noe Alexandre M.D. MEDICAL IMAGING REPORT This report is preliminary unless electronic signature is present EXAM Portable chest INDICATION PIC catheter placement. FINDINGS This portable view of the chest shows a new right-sided PIC catheter with its tip in the lower superior vena cava. Right lower lobe infiltrate is stable. Dictated by... Ab Chan M.D. THIS IS AN ELECTRONICALLY VERIFIED REPORT Ab Chan M.D. at 03/28/2017 1:53 PM MANJIT/chidi TD: 03/28/2017 12:08 JOB #: [id number] MEDICAL IMAGING REPORT Page 1 of 1 COPY
--- NOTE | ~2017-03-24 | OR ---
Unit #: [id number] #: [id number] Patient: JAVI RODRIGUEZ [id number] [address] [place], [place] [address] [id number] I MR#: [id number] NAME: JAVI RODRIGUEZ ROOM: [facility] Date of Procedure: 04/03/2017 Admission Date: 03/24/2017 Surgeon: Reg Chowdhury M.D. : 1960 Attending Physician: Milagros Palumbo M.D. Primary Care Physician: Noe Alexandre M.D. PROCEDURE OPERATIVE NOTE PROCEDURE PERFORMED 1. Percutaneous dilatational tracheostomy. 2. Acute respiratory failure and need for ongoing mechanical ventilation. INDICATION Given the patient's intubation and sedation, the patient was unable to provide consent. Discussed the procedure with the patient's decision maker including the indications, risks, benefits, and alternatives, all questions were answered, written consent was obtained, and was placed in the chart. PREPROCEDURE PREPARATION A (1) protocol was followed for this procedure prior to the initiation of sedation for the procedure. A timeout was performed and the patient's identity was verified by confirming the patient's wrist band for name, date of , and medical record number. Everyone in the room was in agreement with the patient's identity. The procedure to be performed consent was placed and matched. The planned procedure and the procedure site. The area was cleaned with ChloraPrep scrub and surrounded with a large sterile barrier. Hand hygiene was performed and, cap, mask, sterile gown, and sterile gloves were worn. The patient was covered by large sterile drape. Sterile technique was maintained for the entire procedure. Anesthesia. The patient was previously intubated and sedated prior to the procedure. Additional midazolam and Fentanyl was given for deep sedation. Please refer to the accompanying procedure sedation for the additional detail. PROCEDURE Once the patient was adequately sedated and with continuous monitoring 10 mg Norcuron was administered for paralysis. The patient was placed in a supine position. The anterior neck was prepped and draped in the usual sterile fashion. 1% Lidocaine was administered by approximately two fingerbreadths above the sternal notch for the local anesthesia. 1.5 cm vertical incision was then performed two fingerbreadths above the sternal notch using a curved [place], blunt dissection was performed down to the level of the pretracheal fissure. At this point, the bronchoscope was introduced to the endotracheal tube and the trachea was properly visualized. The endobronchial tube was then gradually withdrawn within the trachea under the direct bronchoscopy Unit #: [id number] #: [id number] Patient: JAVI RODRIGUEZ visualization. Proper midline position was confirmed by bouncing the needle from the tracheostomy tray over the trachea with bronchoscopic examination. The needle was advanced into the trachea and the proper positioning was confirmed with direct visualization. The needle was then removed leaving a wide outer cannula in position. The wire from the tracheostomy tray was then advanced through the wide outer cannula. The cannula was then removed. The small blue dilator was then advanced over the wire into the trachea. Once proper dilatation was achieved, the dilator was removed. The large tapered dilator was then advanced over the wire into the trachea. The dilator was removed leaving the wire and the wide inner cannula in position. A #6 percutaneous Shiley tracheostomy tube was then advanced over the wire and the wider inner cannula into the trachea, proper positioning was confirmed with bronchoscopy visualization. The tracheostomy tube was then sutured in place with two Nylon sutures. It was further secured with tracheostomy tie. ESTIMATED BLOOD LOSS Less than 5 mL. COMPLICATIONS None. Dictated by... Alex Saldivar TD: 04/04/2017 11:19 JOB #: [id number] PROCEDURE OPERATIVE NOTE Page 1 of 1 X Reg Chowdhury MD X PROCEDURE OPERATIVE NOTE
--- NOTE | ~2017-03-24 | OR ---
Unit #: [id number] #: [id number] Patient: JAVI RODRIGUEZ [id number] [address] [place], [place] [address] [id number] I MR#: [id number] NAME: JAVI RODRGIUEZ ROOM: [facility] Date of Procedure: 03/29/2017 Admission Date: 03/24/2017 Surgeon: Andre Lino M.D. : 1960 Attending Physician: Milagros Palumbo M.D. Primary Care Physician: Noe Alexandre M.D. OPERATIVE REPORT PRIMARY CARE PHYSICIAN Noe Alexandre M.D. PREOPERATIVE DIAGNOSES Possible upper gastrointestinal bleed. The patient has had drop in hemoglobin from a baseline of 10.9 to 6.8. In addition, he has been found to have melanotic stools in the fecal management system. The patient was admitted with respiratory failure in the intensive care unit yesterday. SEDATION USED Total of 4 mg of Versed was used throughout the procedure. DESCRIPTION OF PROCEDURE Following detailed explanation of potential risks and complications of an upper endoscopy, namely perforation, bleeding, and complications related to sedation, a bite block was placed. Lubricated tip of the Olympus video upper endoscope was passed through bite block into the proximal esophagus under direct vision. The entire esophageal mucosa was examined. Minimal esophagitis noted distally in the esophagus. The scope was then advanced into the gastric cavity. The patient was noted to have a small amount of dark brownish material, most likely food debris. No active bleeding or blood loss was seen. The prepyloric antral area appeared normal. Pylorus was intubated with visualization of the duodenal bulb. The latter was noted to have mild focal duodenitis, which has been noted earlier. The second and third part of duodenum were normal. Indwelling stent was also seen in the descending duodenum. Upon withdrawal and retroflexion, incisura, cardia, and greater curve examined and no additional findings noted. The scope was then withdrawn in the distal esophagus. The entire esophageal mucosa was examined all the way up to pharynx. No additional findings noted. MANAGEMENT PLAN We will maintain the patient's hemoglobin around 8 or above and re-evaluate him in 12 to 24 hours. Dictated by... Alex Wang/rocky TD: 03/30/2017 01:10 Unit #: [id number] #: [id number] Patient: MICHAELJAVI E JOB #: [id number] OPERATIVE REPORT Page 1 of 1 X Andre Lino MD PROCEDURE OPERATIVE NOTE
--- NOTE | ~2017-03-24 | EKG ---
PATIENT: JAVI RODRIGUEZ UNIT #: [id number] Ventricular Rate: 120 BPM Atrial Rate: 120 BPM P-R Interval: 158 ms QRS Duration: 88 ms Q-T Interval: 310 ms QTC Calculation(Bezet): 438 ms P [place]: 55 degrees Calculated R [place]: -31 degrees Calculated T [place]: 72 degrees Diagnosis Line: Sinus tachycardia Diagnosis Line: Left axis deviation Diagnosis Line: Abnormal ECG Diagnosis Line: When compared with ECG of 27-MAR-2017 19:03, Diagnosis Line: (unconfirmed) Diagnosis Line: Nonspecific T wave abnormality now evident in Diagnosis Line: Inferior leads Diagnosis Line: Nonspecific T wave abnormality now evident in Diagnosis Line: Anterior leads Diagnosis Line: Confirmed by MADELYN PENA MD ([id number]) on 03/28/2017 Diagnosis Line: 4:50:48 PM INTERPRETING MD: BECKY MALHOTRA
--- NOTE | ~2017-03-24 | FU ---
[facility] Nutrition Therapy DATE: 04/05/17 Patient: JAVI RODRIGUEZ Physician: LASHANDA Address: [address] [place] [address] Room/Bed: [address], Zip: [place] [address] Admit Date: 03/24/17 Date of : 58 Height: 5 10 Weight: 171 78 NUTRITION MONITORING/FOLLOW-UP: Reason: PT SEEN FOR FOLLOW-UP/ENTERAL NUTRITION SUPPORT DX: PANCREATITIS Anthropometrics: 5'10", WT: 171# (78 KG), BMI: 24.5 -ADMIT WEIGHT: 127#?-FLUID RETENTION NOTED Labs: GLU: 127, CA+:7.5, ALB: 1.5, PHOS: 4.8 (ELEVATED), LIPASE: 87 (03/28/17) Meds: VERSED, FENTANYL, PROTONIX, COLACE, NACL, MAG SULFATE, KCL I&O's: , 1 BM NOTED Skin: ABD ASCITES; BUE GENERALIZED EDEMA; HANDS PITTING EDEMA; BILATERAL PEDAL PITTING EDEMA; BLE GENERAL EDEMA Estimated Nutrition Needs: [phone] KCAL 77-96 G PRO Assessment: CHART REVIEWED AND EVENTS NOTED. PT SEEN FOR ENTERAL NUTRITION SUPPORT FOLLOW-UP. PT IS S/P TRACH PLACEMENT ON 04/03/17. PT CONTINUES TO BE INTUBATED AND SEDATED AT TIME OF VISIT. ENTERAL NUTRITION SUPPORT OF VITAL 1.5 CURRENTLY OFF 2' PEG PLACEMENT SCHEDULED TODAY. PER RN AND CHART, PT TOLERATING ENTERAL NUTRITION, NO PLANS FOR TPN AT THIS TIME. NO FAMILY IN ROOM AT THIS TIME. RD TO CONTINUE TO FOLLOW. Dx: INADEQUATE ORAL INTAKE R/T CURRENT CLINICAL CONDITION AEB NPO STATUS, PT ON VENT.-ACTIVE INADEQUATE NUTRIENT INTAKE R/T ENTERAL NUTRITION INTOLERANCE AEB HIGH RESIDUALS (~250 ML), ABD PAIN.-RESOLVED Intervention: 1. ENTERAL NUTRITION OFF AT TIME OF VISIT Monitoring, Evaluation and Goals: 1. ENTERAL NUTRITION; TOLERATE >80% OF GOAL VOLUME X 24 HOURS-NOT MET 2. WEIGHTS; PROMOTE WEIGHT MAINTENANCE TO REMAIN HEALTHY BMI-IN PROGRESS 3. GI; PROMOTE REGULAR GI FUNCTION-NOT MET/IN PROGRESS 4. IF TPN INITIATED, PROVIDE >80% ESTIMATED NUTRIENT NEEDS AT GOAL-UNMEASURED MONITOR: -WEIGHTS [facility] Nutrition Therapy DATE: 04/05/17 Patient: JAVI RODRIGUEZ Physician: LASHANDA Address: [address] [place] [address] Room/Bed: [address], Zip: [place] [address] Admit Date: 03/24/17 Date of : 58 Height: 5 10 Weight: 171 78 -TF INITIATION/TOLERANCE -LABS -EXTUBATION Recommendations: 1. CONTINUE TO MONITOR LABS DAILY-PHOS ELEVATED 2. ONCE MEDICALLY FEASIBLE, RE-INITIATE ENTERAL NUTRITION SUPPORT OF VITAL 1.5 @ 20 ML/HR, ADVANCE 10 ML q 10 HOURS TO GOAL RATE OF 50 ML/HR X 24 HOURS -PROVIDES 1800 KCAL, 81 G PRO, 912 ML FREE H20 ADD FREE H20 FLUSHES 170 ML q 4 HOURS TO MEET PT'S CURRENT ESTIMATED FLUID NEEDS OR MANAGE PER MD 3. ONCE PT EXTUBATED, ADVANCE DIET PER GREENS TIER EVAL + LOW FAT/LOW-FIBER DIET RD WILL F/U PER PROTOCOL PT IS MODERATELY COMPROMISED Respectfully, TERESA NOVA MS, RD, LD Food and Nutritional Services [facility] cc: client file
--- NOTE | ~2017-03-24 | XA170 ---
[facility] A Service of [facility] & [facility] RADIOLOGY TEXT RESULTS PATIENT: JAVI RODRIGUEZ LOCATION: C2A 228- : 58 UNIT #: [id number] AGE: [address]: Milagros Palumbo MD SEX: M ORDER DR: [id number] [facility] [address]. [place], [place] [address] [id number] I MR#: [id number] Acc #: [id number] NAME: JAVI RODRIGUEZ. : 1960 SEX: M STUDY DATE/TIME: 04/19/2017 9:19 UNIT: [facility] ROOM: 228 STUDY DESCRIPTION: XA Paracentesis W Image Attending Physician: Milagros Palumbo M.D. Ordering Physician: Reg Chowdhury M.D. Primary Care Physician: Noe Alexandre M.D. MEDICAL IMAGING REPORT This report is preliminary unless electronic signature is present EXAM Ultrasound-guided paracentesis. HISTORY Ascites. PROCEDURE The risks, benefits, and alternatives to the procedure were explained to the patient, and signed, informed consent was obtained. The patient was placed supine on the stretcher. Preliminary ultrasound of the abdomen was performed which demonstrated a large volume of ascites. This image was permanently saved. Overlying skin was marked. The patient was prepped and draped in the usual sterile fashion. Time out was performed as per protocol. Skin and subcutaneous tissues were anesthetized with buffered lidocaine and a Directworkseh catheter was advanced into the fluid with aspiration of serous material. The catheter was hooked to suction tubing. There was evacuation of 5.4 L of serous material. The catheter was then removed and manual pressure was applied until hemostasis was obtained. IMPRESSION Technically successful ultrasound-guided paracentesis. As noted above, ultrasound was used during the procedure and permanent images were saved. Dictated by... Coni Escobar M.D. THIS IS AN ELECTRONICALLY VERIFIED REPORT Coni Escobar M.D. at 04/22/2017 7:30 AM AFF/tmw STS. [facility] A Service of [facility] & [facility] RADIOLOGY TEXT RESULTS PATIENT: JAVI RODRIGUEZ LOCATION: [facility] 228-01 : 58 UNIT #: [id number] AGE: [address]: Milagros Palumbo MD SEX: M ORDER DR: TD: 04/21/2017 12:54 JOB #: [id number] MEDICAL IMAGING REPORT Page 1 of 1 COPY
--- NOTE | ~2017-03-24 | EKG ---
PATIENT: JAVI RODRIGUEZ UNIT #: [id number] Ventricular Rate: 91 BPM Atrial Rate: 91 BPM P-R Interval: 148 ms QRS Duration: 90 ms Q-T Interval: 394 ms QTC Calculation(Bezet): 484 ms P [place]: 60 degrees Calculated R [place]: -15 degrees Calculated T [place]: 42 degrees Diagnosis Line: Normal sinus rhythm Diagnosis Line: Prolonged QT Diagnosis Line: Abnormal ECG Diagnosis Line: No previous ECGs available Diagnosis Line: Confirmed by JUAN MIGUEL HERNANDEZ MD ([id number]) on Diagnosis Line: 04/10/2017 3:08:41 PM INTERPRETING MD: JAIR
--- NOTE | ~2017-03-24 | CT4 ---
[facility] A Service [facility] RADIOLOGY TEXT RESULTS PATIENT: JAVI RODRIGUEZ LOCATION: [facility] 327- : 58 UNIT #: [id number] AGE: [address]: Milagros Palumbo MD SEX: M ORDER DR: [id number] [facility] [address] [facility] [place] [facility]. [place], [place] [address] [id number] I MR#: [id number] Acc #: [id number] NAME: JAVI RODRIGUEZ. : 1960 SEX: M STUDY DATE/TIME: 03/24/2017 20:04 UNIT: [address] ROOM: [facility] STUDY DESCRIPTION: CT Abd and Pelv Wo Cont Attending Physician: hSawanda Morrow M.D. Ordering Physician: Gigi Wolf M.D. Primary Care Physician: Noe Alexandre M.D. MEDICAL IMAGING REPORT This report is preliminary unless electronic signature is present EXAM CT abdomen and pelvis without contrast INDICATIONS Generalized abdominal pain for the past [address] of the abdomen and pelvis, This CT exam was performed with one or more of the following radiation dose reduction techniques: automatic exposure control, adjustment of mA and/or kV according to patient size, and iterative reconstruction. COMPARISON 11/04/2015 FINDINGS Abdomen without contrast: Stable to minimally improved scarring or chronic atelectasis in the right lung base. Cirrhotic morphology of the liver. Liver is borderline enlarged at 18.9 cm. There is geographic low attenuation throughout the liver. It is a new finding compared to the prior. There is a small amount ascites in the upper abdomen but significantly improved from the prior. The spleen kidneys and adrenal glands are unremarkable. Gallbladder is moderately distended but no appreciable inflammatory change. There is diffuse pancreatic calcification and pancreatic duct dilation. This is also increased from the prior. There may be mild peripancreatic fluid, but no organized collection. There is a possible rounded filling defect in the common duct measuring approximately 9 mm. No significant intrahepatic bile duct dilation. [facility] RADIOLOGY TEXT RESULTS PATIENT: JAVI RODRIGUEZ LOCATION: C3A 327-01 : 58 UNIT #: [id number] AGE: [address]: Milagros Palumbo MD SEX: M ORDER DR: Bowel loops are nondilated. Pelvis without contrast: Small to moderate amount of pelvic fluid. No aggressive appearing bone lesion. IMPRESSION 1. New geographic low attenuation throughout the liver. This is new since 11/04/2015. Probably represents geographic steatosis. Hepatic infarct possibly could have a similar appearance but that is disfavored given the distribution. 2. Chronic calcific pancreatitis, increased from the previous study. There may be a minimal amount of peripancreatic fluid, and it is difficult to exclude mild acute pancreatitis. 3. A small amount of ascites in the upper abdomen and pelvis significantly improved from the previous study. 4. Possible filling defect in the common duct measuring 9 mm. This possibility could be evaluated with MRCP or ERCP if deemed clinically appropriate. There is no appreciable intrahepatic bile duct dilation. Dictated by... Joce Moon M.D. THIS IS AN ELECTRONICALLY VERIFIED REPORT Joce Moon M.D. at 03/25/2017 2:26 PM MILEY/chidi TD: 03/24/2017 22:57 JOB #: [id number] MEDICAL IMAGING REPORT Page 1 of 1 COPY
--- NOTE | ~2017-03-24 | CO ---
Unit #: [id number] #: [id number] Patient: JAVI RODRIGUEZ [id number] [address] [place], [place] [address] [id number] Neal MR#: [id number] NAME: JAVI RODRIGUEZ. ROOM: [facility] Age: 56 Sex: M Admission Date: 03/24/2017 : 1960 Attending Physician: Milagros Palumbo M.D. Primary Care Physician: Noe Alexandre M.D. CONSULTATION REPORT REASON FOR CONSULTATION Critical care management. CHIEF COMPLAINT Shortness of breath. HISTORY OF PRESENT ILLNESS This patient basically presented as a 56-year-old male. He has a past medical history of chronic pancreatitis, recent portal vein thrombosis. Presented with abdominal pain. Admitted with impression of acute pancreatitis, cirrhosis and hypokalemia and became acutely worse this morning on the floor. I was consulted for altered mental status and respiratory failure. The patient is currently tachypneic, short of breath and completely confused. I will plan to intubate the patient. Discussed with his sister over the phone. REVIEW OF SYSTEMS Unobtainable. PAST MEDICAL HISTORY 1. Cirrhosis. 2. COPD. 3. Hypertension. 4. Portal vein thrombosis. 5. Pancreatitis. ALLERGIES None. MEDICATIONS None at home. FAMILY HISTORY Diabetes, lung cancer. SOCIAL HISTORY Positive smoking, alcohol abuse. PHYSICAL EXAMINATION VITAL SIGNS: Temperature 98, pulse 87, respirations 12, blood pressure 130/70. NEUROLOGICAL: Confused. CVS: S1+ S2. RESPIRATIONS: Bilateral rhonchi. Unit #: [id number] #: [id number] Patient: JAVI RODRIGUEZ GI: Nontender, soft. Bowel sounds positive. EXTREMITIES: No edema. DIAGNOSTIC STUDIES Labs and imaging have been reviewed. ASSESSMENT AND PLAN 1. Acute respiratory failure. 2. Altered mental status. 3. Alcohol withdrawal. 4. Acute pancreatitis. 5. Sepsis. Plan is to admit the patient. Continue oxygen, bronchodilator and continue ventilator support. Broaden the coverage of antibiotics. Add Zosyn. Follow up culture. GI/DVT prophylaxis. The patient will be closely monitored. Will keep him on versed drip. Please see orders for detailed plan. Thank you very much for this consultation. Dictated by... SajAlex Coley TD: 03/28/2017 16:13 JOB #: [id number] CONSULTATION REPORT Page 1 of 1 X Reg Chowdhury MD CONSULTATION REPORT
--- NOTE | ~2017-03-24 | OR ---
Unit #: [id number] #: [id number] Patient: JAVI RODRIGUEZ [id number] [address] [address] [id number] I MR#: [id number] NAME: JAVI RODRIGUEZ ROOM: [facility] Date of Procedure: 04/07/2017 Admission Date: 03/24/2017 Surgeon: Umberto Morrow M.D. : 1960 Attending Physician: Milagros Palumbo M.D. Primary Care Physician: Noe Alexandre M.D. PROCEDURE OPERATIVE NOTE PROCEDURE PERFORMED Diagnostic and therapeutic paracentesis. INDICATION FOR PROCEDURE Large ascites. PREMEDICATIONS Versed 2 mg IV x1. DESCRIPTION OF PROCEDURE An informed consent was obtained from the family after explaining the benefits and risks of this procedure. The patient was prepped and positioned in a proper way with the ultrasound guidance and needle was inserted in the right lower quadrant until fluid flow was obtained. The catheter was inserted over the needle and the needle was removed. The catheter was connected to a suction and 5.5 L of clear yellowish fluid was drained. The catheter then was removed and patient tolerated his procedure well with no immediate complications. PERFORMING PHYSICIAN Umberto Morrow M.D. COMPUTING SYSTEMS MECHANIC Jackie McgowanRAmberly. Dictated by... Alex Walker TD: 04/07/2017 11:25 JOB #: [id number] Unit #: [id number] #: [id number] Patient: JAVI RODRIGUEZ PROCEDURE OPERATIVE NOTE Page 1 of 1 X UMBERTO YOUSIF MD PROCEDURE OPERATIVE NOTE
--- NOTE | ~2017-03-24 | FU ---
[facility] Nutrition Therapy DATE: 04/08/17 Patient: JAVI RODRIGUEZ Physician: LASHANDA Address: [address] [place] [address] Room/Bed: [address], Zip: [place] [address] Admit Date: 03/24/17 Date of : 58 Height: 5 10 Weight: 165 75 NUTRITION MONITORING/FOLLOW-UP: Reason: enteral nutrition follow-up Dx: pancreatitis Anthropometrics: ht: 5'10" wt: 165# (75 kg) BMI: 23 -Admit weight 127#? -fluid retention noted Labs: Ca+ 7.4 Meds: morphine sulfate, percocet, protonix , ativan, NaCl I&O's: 3227/6010. No recent BM noted. Skin: ABD ascites; BUE generalized edema; hands pitting edema; bilteral pedal pitting edema; BLE general edema Estimated Nutrition Needs: 9193-8352 kcal 77-96 g protein Assessment: Chart reviewed, events noted. Pt seen for enteral nutrition support follow-up. RD agriculture intern visited pt at bedside. Pt continues to be intubated and sedated. The pt was scheduled for a PEG placement, but did not receive it due to abd distention. On 04/07/17, trickle tubefeeds were re-started and have been tolerated, now running at 20 mL/hr x 24 hours, per pump history, providing 151 mL past 24 hours (12% of goal volume). RN reports that she is going to try to advance the tubefeeds today as tolerated. RD will continue to follow. Dx: 1) Inadequate oral intake r/t current clinical condition AEB NPO status, pt on vent -ACTIVE 2) Inadequate nutrient intake r/t enteral nutrition intolerance AEB high residuals (~250 mL), abd pain -RESOLVED Intervention: 1. enteral nutrition re-started Monitoring, Evaluation and Goals: 1. Enteral nutrition; tolerate >80% of goal volume x 24 hours -IN PROGRESS 2. Weights; promote weight maintainence to remain healthy BMI -IN PROGRESS 3. GI; promote regular GI function -NOT MET/IN PROGRESS [facility] Nutrition Therapy DATE: 04/08/17 Patient: JAVI RODRIGUEZ Physician: LASHANDA Address: [address] [place] [address] Room/Bed: [address] [place] [address], Zip: [place] [address] Admit Date: 03/24/17 Date of : 58 Height: 5 10 Weight: 165 75 4. If TPN initiated, provide >80% estimated nutrient needs at goal -NOT ACTIVE/UNMEASURED Monitor: -GI function -Weight -Enteral nutrition tolerance -Labs -Extubation Recommendations: 1. Continue enteral nutrition support of Vital 1.5 @ 20 mL and increase 10 mL q 10 hours as tolerated to goal rate of 50 mL/hr x 24 hours. -This provides 1800 kcal, 81 g pro, 912 mL free h20. -Add free h20 flushes 170 mL q 4 hours to meet pt's current estimated fluid needs or manage per MD 2. Continue to monitor labs daily. 3. Once pt extubated, advance diet per CAR WASHER eval + low fat/low-fiber diet. RD will f/u per protocol as pt is moderately compromised. Respectfully, GENESIS ISBELL, graduate internship Huey Wharton MS, RD, LD [employer] [facility] cc: client file
--- NOTE | ~2017-03-24 | EKG ---
PATIENT: JAVI RODRIGUEZ UNIT #: [id number] Ventricular Rate: 92 BPM Atrial Rate: 92 BPM P-R Interval: 144 ms QRS Duration: 84 ms Q-T Interval: 390 ms QTC Calculation(Bezet): 482 ms P [place]: 66 degrees Calculated R [place]: -26 degrees Calculated T [place]: 53 degrees Diagnosis Line: Normal sinus rhythm Diagnosis Line: Nonspecific T wave abnormality Diagnosis Line: Abnormal ECG Diagnosis Line: When compared with ECG of 28-MAR-2017 06:38, Diagnosis Line: No significant change was found Diagnosis Line: Confirmed by JUAN MIGUEL HERNANDEZ MD ([id number]) on Diagnosis Line: 04/06/2017 10:39:32 PM INTERPRETING MD: JAIR
--- NOTE | ~2017-03-24 | CR7 ---
[facility] A Service of [facility] RADIOLOGY TEXT RESULTS PATIENT: JAVI RODRIGUEZ LOCATION: [address] : [birth year] UNIT #: [id number] AGE: [address]: Milagros Palumbo MD SEX: M ORDER DR: [id number] [place] [id number] [facility]. [place], [place] [address] [id number] I MR#: [id number] Acc #: [id number] NAME: JAVI RODRIGUEZ : 1960 SEX: M STUDY DATE/TIME: 03/28/2017 16:12 UNIT: [facility] ROOM: [facility] STUDY DESCRIPTION: CR Abdomen Single AP View Attending Physician: Milagros Palumbo M.D. Ordering Physician: Milagros Palumbo M.D. Primary Care Physician: Noe Alexandre M.D. MEDICAL IMAGING REPORT This report is preliminary unless electronic signature is present EXAM Single view of the abdomen dated 03/28/2017. COMPARISON Single view chest dated 03/28/2017. HISTORY Tube placement. FINDINGS Frontal view of portions of the mid to lower chest and the adjacent upper to mid abdomen have been obtained. Portions of the right side of the abdomen and adjacent chest have not been included. There is an NG tube with the tip in the region of the mid to distal body of the stomach. There is a CBD duct in place. Right subclavian approach. NOTE PICC line catheter tip is in the region of the SVC. Previously noted patchy alveolar infiltrate/atelectasis in the right lung base and to a lesser degree in the left lung base are redemonstrated. Tip of endotracheal tube is about 6.5 cm from the presumed juve, relatively stable. Dictated by... Marquez Ramon M.D. THIS IS AN ELECTRONICALLY VERIFIED REPORT Marquez Ramon M.D. at 03/29/2017 5:12 PM CPR/ea [facility] A Service of [facility] RADIOLOGY TEXT RESULTS PATIENT: JAVI RODRIGUEZ LOCATION: [place] [address] : [birth year] UNIT #: [id number] AGE: [address]: Milagros Palumbo MD SEX: M ORDER DR: TD: 03/28/2017 23:33 JOB #: [id number] MEDICAL IMAGING REPORT Page 1 of 1 COPY
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
--- NOTE | ~2017-03-24 | OR ---
Unit #: [id number] #: [id number] Patient: JAVI RODRIGUEZ [id number] [address] [address] [id number] I MR#: [id number] NAME: JAVI RODRIGUEZ ROOM: [facility] Date of Procedure: 04/02/2017 Admission Date: 03/24/2017 Surgeon: Umberto Morrow M.D. : 1960 Attending Physician: Milagros Palumbo M.D. Primary Care Physician: oNe Alexandre M.D. PROCEDURE OPERATIVE NOTE INDICATION FOR PROCEDURE Pneumonia and significant amount of secretions. PREOPERATIVE DIAGNOSIS Respiratory failure and pneumonia. PROCEDURE PERFORMED Diagnostic and therapeutic bronchoscopy with bronchial washing. FINDINGS Extensive and copious amount of yellowish thin secretions in all lung lobes on both sides. ANESTHESIA Versed 4 mg IV times 1. COMPLICATIONS None. PROCEDURE An informed consent was obtained from the patient's family after explaining the benefits and risks of this procedure. The bronchoscope was advanced through the ET tube and at the level of the Ellie 1% lidocaine was instilled and the bronchoscope was advanced into the right main bronchus and the right upper lobe, right lower lobe and right middle were lavaged and suctioned. A copious amount of secretions was noted. The bronchoscope was retracted and then redirected into the left main bronchus and the left upper lobe, lingula and left lower lobe were examined, which was noted to have again copious amount of secretion. Lavage and washings were obtained from all lobes. The bronchoscope was retracted out then. The patient tolerated the procedure well with no immediate complications. Dictated by... Umberto Morrow M.D. EA/ender TD: 04/02/2017 13:10 JOB #: [id number] Unit #: [id number] #: [id number] Patient: JAVI RODRIGUEZ PROCEDURE OPERATIVE NOTE Page 1 of 1 X UMBERTO YOUSIF MD X PROCEDURE OPERATIVE NOTE
--- NOTE | ~2017-03-24 | OR ---
Unit #: [id number] #: [id number] Patient: JAVI RODRIGUEZ [id number] [place] [id number] I MR#: [id number] NAME: JAVI RODRIGUEZ. ROOM: 467 Date of Procedure: 03/26/2017 Admission Date: 03/24/2017 Surgeon: Andre Lino M.D. : 1960 Attending Physician: Milagros Palumbo M.D. Primary Care Physician: Noe Alexandre M.D. OPERATIVE REPORT JOB NOTE: CC: ROBERT MORROW. ADDITIONAL ATTENDING PHYSICIAN Robert Morrow. PRIMARY CARE PHYSICIAN Noe Alexandre M.D. PREOPERATIVE DIAGNOSES Chronic relapsing pancreatitis with abnormal imaging suggestive of possible distal common bile duct stone. PROCEDURES PERFORMED 1. Endoscopic retrograde cholangiopancreatography with brushings. 2. Endoscopic retrograde cholangiopancreatography with stricture dilation. 3. Endoscopic retrograde cholangiopancreatography and biliary stent placement. POSTOPERATIVE DIAGNOSES 1. The patient had a stricture in the distal part of the common bile duct in the intrapancreatic portion of the common bile duct. The stricture about 3 cm in length above the ampullary area. 2. There was also evidence of papillary stenosis. 3. After obtaining brushings of the stricture, the latter was dilated with a 4 cm x 6 mm dilating balloon. Excellent dilation was achieved. A 7-Surinamese 7-cm biliary stent was then deployed. Excellent biliary drainage was established. RECOMMENDATIONS 1. Follow up the results of cytology obtained from the brushings today. 2. The patient will come back for a repeat ERCP and stent removal in the next few weeks. We will also monitor his pancreatic enzymes and liver function studies. SEDATION USED MAC. DESCRIPTION OF PROCEDURE Following detailed explanation of potential risks and complications of an ERCP, namely perforation, bleeding, and complication related to sedation, the patient was brought to GI lab and laid in the left semiprone position. Sedation using MAC was given. Lateral-viewing duodenoscope was advanced Unit #: [id number] #: [id number] Patient: JAVI RODRIGUEZ through the oral cavity into the esophagus and advanced into the stomach. Pylorus was intubated in the usual fashion. The scope was advanced in deep descending duodenum. Upon shortening the scope, major papilla and ampullary area was visualized en face. There was considerable edema of this area making identification of the ampullary area somewhat challenging. This was done after giving injection with 0.25 mcg of cholecystokinin. Guidewire based cannulation was used and common bile duct was cannulated and a cholangiogram was obtained. A stricture was found in the intrapancreatic part of the CBD. We then obtained some brushings from the stricture for cytology and the stricture was dilated using a 4 cm x 6 mm dilating balloon. Excellent dilation was achieved followed by flow of gush of bile into the duodenum. We then obtained an occlusion cholangiogram that shows extensive stricture and normal intrahepatic biliary tree. Finally, a 7-Surinamese 7-cm biliary stent was deployed across the stricture to ensure biliary drainage. It is also noteworthy, the patient has significant papillary stenosis as after guidewire cannulation, it took quite a jostling to advance the cannula over the guidewire. The patient tolerated the procedure without any postprocedure complications. Dictated by... Alex Wang/rocky TD: 03/27/2017 16:34 JOB #: [id number] OPERATIVE REPORT Page 1 of 1 X Andre Lino MD X PROCEDURE OPERATIVE NOTE
--- NOTE | ~2017-03-24 | EKG ---
PATIENT: JAVI RODRIGUEZ UNIT #: [id number] Ventricular Rate: 135 BPM Atrial Rate: 135 BPM P-R Interval: 114 ms QRS Duration: 84 ms Q-T Interval: 336 ms QTC Calculation(Bezet): 504 ms P Heidrick: 80 degrees Calculated R Heidrick: -54 degrees Calculated T Heidrick: 94 degrees Diagnosis Line: Sinus tachycardia Diagnosis Line: Left anterior fascicular block Diagnosis Line: Nonspecific ST and T wave abnormality Diagnosis Line: Abnormal ECG Diagnosis Line: When compared with ECG of 04-NOV-2015 06:46, Diagnosis Line: Vent. rate has increased BY 53 BPM Diagnosis Line: Incomplete right bundle branch block is no longer Diagnosis Line: Present Diagnosis Line: Confirmed by MADELYN PENA MD ([id number]) on 03/28/2017 Diagnosis Line: 4:48:16 PM INTERPRETING MD: BECKY MALHOTRA
--- NOTE | ~2017-03-24 | CR72 ---
[facility] A Service of [facility] RADIOLOGY TEXT RESULTS PATIENT: JAVI RODRIGUEZ LOCATION: [address] : [birth year] UNIT #: [id number] AGE: [address]: Milagros Palumbo MD SEX: M ORDER DR: [id number] [facility] [address] [place], [place] [address] [id number] I MR#: [id number] Acc #: [id number] NAME: JAVI RODRIGUEZ : 1960 SEX: M STUDY DATE/TIME: 04/04/2017 UNIT: [facility] ROOM: [facility] STUDY DESCRIPTION: CR Chest Single View Portable Attending Physician: Milagros Palumbo M.D. Ordering Physician: Milagros Palumbo M.D. Primary Care Physician: Noe Alexandre M.D. MEDICAL IMAGING REPORT This report is preliminary unless electronic signature is present EXAM Portable chest 04/04 INDICATIONS Respiratory failure. Endotracheal tube placement. TECHNIQUE AP portable chest is compared with 04/03/2017. FINDINGS Tubes and lines are unchanged. Heart size stable. There is continued elevation of the right hemidiaphragm. Bilateral pneumonia is not significantly changed. No pneumothorax. Dictated by... Ty Araujo Jr., M.D. THIS IS AN ELECTRONICALLY VERIFIED REPORT Ty Araujo Jr., M.D. at 04/04/2017 9:26 PM RLK/chip TD: 04/04/2017 11:30 JOB #: [id number] MEDICAL IMAGING REPORT Page 1 of 1 COPY
--- NOTE | ~2017-03-24 | CR7 ---
[facility] A Service of [facility] RADIOLOGY TEXT RESULTS PATIENT: JAVI RODRIGUEZ [facility] UNIT #: [id number] AGE: [address]: Milagros Palumbo MD SEX: M ORDER DR: [id number] [place] [id number] [facility] [place] [facility]. [place], [place] [address] [id number] I MR#: [id number] Acc #: [id number] NAME: JAVI RODRIGUEZ : 1960 SEX: M STUDY DATE/TIME: 04/06/2017 20:43 UNIT: [facility] ROOM: [facility] STUDY DESCRIPTION: CR Abdomen Single AP View Attending Physician: Milagros Palumbo M.D. Ordering Physician: Milagros Palumbo M.D. Primary Care Physician: Noe Alexandre M.D. MEDICAL IMAGING REPORT This report is preliminary unless electronic signature is present EXAM AP abdomen. DATE 04/06/2017 HISTORY 56-year-old male for NG tube placement. Patient is unable to eat. COMPARISON AP abdomen 03/28/2017. FINDINGS NG tube is looped in the proximal gastric body, with the tip extending antegrade into the tnftzgxh-tf-ykm gastric body region. There are multiple abnormally dilated and stacked small bowel loops suggesting features of small bowel obstruction, which appears new since 03/28/2017. Previously seen CBD stent in place, unchanged. Patchy parenchymal densities are present in the bilateral lower lobes may represent changes of pneumonia. Right arm approach PICC extends to the lower SVC. IMPRESSION 1. NG tube tip extends into the cojigoys-cw-lie gastric body region. 2. Abnormally dilated and stacked small bowel loops suggesting features of small bowel obstruction. These findings appear new compared to 03/28/2017. 3. Patchy parenchymal densities in the bilateral lower lobes. Correlate for pneumonia symptoms. 4. CBD stent remains appropriately positioned. Dictated by... [facility] A Service [facility] RADIOLOGY TEXT RESULTS PATIENT: JAVI RODRIGUEZ [facility] UNIT #: [id number] AGE: [address]: Milagros Palumbo MD SEX: M ORDER DR: Mae West M.D. THIS IS AN ELECTRONICALLY VERIFIED REPORT Mae West M.D. at 04/07/2017 10:40 AM JOSE/shilpa TD: 04/07/2017 03:38 JOB #: [id number] MEDICAL IMAGING REPORT Page 1 of 1 COPY
[~2017-03-24 18:39] MED LIST: AMBIEN10 MG PO; AMOXICILLIN875 MG PO; CELEXA20 MG PO; COMBIVENT U/D3 M2 INH; DOXYCYCLINE HY100 M3 PO; FOLIC ACID1 MG PO; LASIX20 MG PO; LEVAQUIN750 MG PO; LIDODERM30 EA TOP; LISINOPRIL20 MG PO; LOVENOX100 MG/ML INJ; MEDROL4 MG/DOSE- PO; METOPROLOL TAR25 MG PO; MULTI VITAMIN1 EACH PO; MULTIVITAMINS1 EAC2 PO; NO MEDICATIONS; NORVASC PO; OMNICEF300 M1 PO; SYMBICORT80 INH; VITAMIN B-1100 M1 PO; ZOVIRAX800 MG PO
[2017-03-24 19:09] LABS: BASOPHIL# 0.1 X10e3 (0-0.3); BASOPHIL% 0.6 % (0-2.5); EOSINOPHIL% 0.2 % (0.0-7.0); HEMATOCRIT 32.5 % (38.0-50.0); HEMOGLOBIN 10.9 gm/dL (13.0-16.0); LYMPHOCYTE# 1.7 X10e3 (1.0-3.5); LYMPHOCYTE% 17.7 % (17.0-45.0); MEAN CELL VOLUME 101.9 FL (83-96); MEAN CORPUSCULAR HEMOGLOBIN 34.3 PG (28-34); MEAN CORPUSCULAR HGB CONC 33.7 g/dL (30-36); MEAN PLATELET VOLUME 9.8 FL (6.5-11.5); MONOCYTE# 0.4 X10e3 (0-1.0); MONOCYTE% 4.3 % (3.0-12.0); NEUTROPHIL# 7.3 X10e3 (1.5-7.1); NEUTROPHIL% 77.2 % (40-75); PLATELET COUNT 200 X10e3 (140-420); RED BLOOD COUNT 3.18 X10e (3.90-5.60); RED CELL DISTRIBUTION WIDTH 15.4 % (11.0-15.5); WHITE BLOOD COUNT 9.4 X10e3 (4.0-10.5)
[2017-03-24 19:10] LABS: DIFF IND NO
[2017-03-24 19:25] LABS: ALBUMIN SERUM 2.4 g/dL (3.5-5.0); BILIRUBIN, DIRECT 1.5 mg/dL (0.0-0.2); BILIRUBIN,INDIRECT 2.4 mg/dL (0.0-0.9); BILIRUBIN,TOTAL 3.9 mg/dL (0.2-2.0); CALCIUM SERUM 8.4 mg/dL (8.4-10.2); CREATININE SERUM 0.8 mg/dL (0.6-1.4); GLOM FILT RATE Estimated 99.2 mL/min (>60); PROTEIN TOTAL SERUM 7.7 g/dL (6.0-8.3)
[2017-03-24 19:26] LABS: POTASSIUM 2.2 mmol/L (3.5-5.1)
[2017-03-24] MEDS ORDERED: NO MEDICATIONS (21:17)
[2017-03-24 22:02] LABS: URINE SOURCE CLEAN CATCH
[2017-03-24 22:14] LABS: URINE BLOOD TRACE (NEG); URINE COLOR ORANGE; URINE GLUCOSE NEG (NEG); URINE KETONE NEG (NEG); URINE LEUKOCYTE ESTERASE 1+ (NEG); URINE NITRATE POS (NEG); URINE PROTEIN 1+ (NEG); URINE SPECIFIC GRAVITY 1.033 (1.003-1.035)
[2017-03-24 22:15] LABS: CULTURE INDICATED? YES; URINE BACTERIA AUWI NEG (NEGATIVE); URINE SQUAMOUS EPITHELIAL CELL OCC /[HPF]
[2017-03-24 22:29] LABS: URINE BILIRUBIN POS (NEG)
[2017-03-24 22:31] LABS: U HYALINE CASTS AUWI 0-2 /[LPF]
[2017-03-24 22:32] LABS: URINE APPEARANCE CLOUDY; URINE GRANULAR CAST 0-2 /[HPF]; URINE MUCUS PRESENT
[2017-03-25 05:25] LABS: HEMATOCRIT 25.7 % (38.0-50.0); MEAN CELL VOLUME 103.5 FL (83-96); MEAN CORPUSCULAR HEMOGLOBIN 34.3 PG (28-34); MEAN CORPUSCULAR HGB CONC 33.1 g/dL (30-36); MEAN PLATELET VOLUME 10.2 FL (6.5-11.5); RED BLOOD COUNT 2.49 X10e (3.90-5.60); RED CELL DISTRIBUTION WIDTH 15.7 % (11.0-15.5); WHITE BLOOD COUNT 5.2 X10e3 (4.0-10.5)
[2017-03-25 05:56] LABS: HEMOGLOBIN 8.5 gm/dL (13.0-16.0)
[2017-03-25 06:28] LABS: BUN/CREATININE RATIO 14.28; CALCIUM SERUM 7.6 mg/dL (8.4-10.2); CREATININE SERUM 0.7 mg/dL (0.6-1.4); GLOM FILT RATE Estimated 104.8 mL/min (>60)
[2017-03-25 06:33] LABS: POTASSIUM 2.9 mmol/L (3.5-5.1)
[2017-03-26 06:19] LABS: MEAN CELL VOLUME 103.2 FL (83-96); MEAN CORPUSCULAR HEMOGLOBIN 34.4 PG (28-34); MEAN CORPUSCULAR HGB CONC 33.3 g/dL (30-36); MEAN PLATELET VOLUME 9.6 FL (6.5-11.5); RED BLOOD COUNT 2.32 X10e (3.90-5.60); RED CELL DISTRIBUTION WIDTH 15.3 % (11.0-15.5)
[2017-03-26 06:34] LABS: WHITE BLOOD COUNT 7.9 X10e3 (4.0-10.5)
[2017-03-26 07:24] LABS: ALBUMIN SERUM 1.7 g/dL (3.5-5.0); BILIRUBIN,TOTAL 1.7 mg/dL (0.2-2.0); BUN/CREATININE RATIO 16.66; CALCIUM SERUM 7.5 mg/dL (8.4-10.2); CREATININE SERUM 0.6 mg/dL (0.6-1.4); GLOM FILT RATE Estimated 111.7 mL/min (>60); POTASSIUM 3.6 mmol/L (3.5-5.1); PROTEIN TOTAL SERUM 5.5 g/dL (6.0-8.3)
[2017-03-27 06:54] LABS: HEMATOCRIT 25.6 % (38.0-50.0); HEMOGLOBIN 8.3 gm/dL (13.0-16.0); MEAN CORPUSCULAR HEMOGLOBIN 33.7 PG (28-34); MEAN CORPUSCULAR HGB CONC 32.4 g/dL (30-36); MEAN PLATELET VOLUME 9.5 FL (6.5-11.5); RED BLOOD COUNT 2.46 X10e (3.90-5.60); RED CELL DISTRIBUTION WIDTH 15.6 % (11.0-15.5); WHITE BLOOD COUNT 4.9 X10e3 (4.0-10.5)
[2017-03-27 07:27] LABS: ALBUMIN SERUM 1.8 g/dL (3.5-5.0); AMYLASE 106 U/L (0-46); BILIRUBIN,TOTAL 1.5 mg/dL (0.2-2.0); BUN/CREATININE RATIO 12.85; CALCIUM SERUM 7.7 mg/dL (8.4-10.2); CHOLESTEROL 89 mg/dL (0-200); CREATININE SERUM 0.7 mg/dL (0.6-1.4); GLOM FILT RATE Estimated 104.8 mL/min (>60); HDL CHOLESTEROL 14 mg/dL (29-75); LDL CHOLESTEROL 60 mg/dL (-130); LDL/HDL RATIO 4 RATIO (0-4); MAGNESIUM 1.9 mg/dL (1.6-3.0); POTASSIUM 4.2 mmol/L (3.5-5.1); PROTEIN TOTAL SERUM 5.9 g/dL (6.0-8.3); TRIGLYCERIDES 76 mg/dL (10-160)
[2017-03-27 19:12] LABS: ARTERIAL BLD GAS O2 SATURATION 95.9 % (90.0-100.0); ARTERIAL BLOOD GAS ALLEN TEST NORMAL; ARTERIAL BLOOD GAS ART SITE RIGHT RADIAL; ARTERIAL BLOOD GAS CARBOXY HB 1.2 %sat (0.0-9.0); ARTERIAL BLOOD GAS DELIVERY NASAL CANNULA; ARTERIAL BLOOD GAS HCO3 20.6 mmol/L; ARTERIAL BLOOD GAS MET HB 0.6 %sat (0.0-2.0); ARTERIAL BLOOD GAS PCO2 24.8 mmHg (35.0-45.0); ARTERIAL BLOOD GAS PO2 67.8 mmHg (80.0-100); ARTERIAL BLOOD GAS pH 7.528 (7.350-7.450); ARTERIAL DRAW? YES
[2017-03-27 20:31] LABS: CK TOTAL 28 IU/L (36-174)
[2017-03-27 22:22] LABS: BASOPHIL% 0.2 % (0-2.5); EOSINOPHIL% 0.1 % (0.0-7.0); HEMATOCRIT 28.2 % (38.0-50.0); HEMOGLOBIN 9.4 gm/dL (13.0-16.0); LYMPHOCYTE# 0.4 X10e3 (1.0-3.5); LYMPHOCYTE% 4.3 % (17.0-45.0); MEAN CELL VOLUME 102.7 FL (83-96); MEAN CORPUSCULAR HEMOGLOBIN 34.2 PG (28-34); MEAN CORPUSCULAR HGB CONC 33.3 g/dL (30-36); MEAN PLATELET VOLUME 9.3 FL (6.5-11.5); MONOCYTE% 0.5 % (3.0-12.0); NEUTROPHIL# 7.7 X10e3 (1.5-7.1); NEUTROPHIL% 94.9 % (40-75); PLATELET COUNT 149 X10e3 (140-420); RED BLOOD COUNT 2.75 X10e (3.90-5.60); RED CELL DISTRIBUTION WIDTH 15.3 % (11.0-15.5)
[2017-03-27 22:27] LABS: DIFF IND NO; WHITE BLOOD COUNT 8.2 X10e3 (4.0-10.5)
[2017-03-28 01:17] LABS: BUN/CREATININE RATIO 10.83; CALCIUM SERUM 7.5 mg/dL (8.4-10.2); CREATININE SERUM 1.2 mg/dL (0.6-1.4); GLOM FILT RATE Estimated 66.7 mL/min (>60)
[2017-03-28 02:33] LABS: BASOPHIL% 0.2 % (0-2.5); HEMATOCRIT 32.2 % (38.0-50.0); HEMOGLOBIN 10.5 gm/dL (13.0-16.0); LYMPHOCYTE# 0.4 X10e3 (1.0-3.5); LYMPHOCYTE% 3.1 % (17.0-45.0); MEAN CELL VOLUME 103.5 FL (83-96); MEAN CORPUSCULAR HEMOGLOBIN 33.7 PG (28-34); MEAN CORPUSCULAR HGB CONC 32.6 g/dL (30-36); MEAN PLATELET VOLUME 10.1 FL (6.5-11.5); MONOCYTE# 0.2 X10e3 (0-1.0); MONOCYTE% 1.8 % (3.0-12.0); NEUTROPHIL# 12.4 X10e3 (1.5-7.1); NEUTROPHIL% 94.9 % (40-75); PLATELET COUNT 191 X10e3 (140-420); RED BLOOD COUNT 3.11 X10e (3.90-5.60); RED CELL DISTRIBUTION WIDTH 15.7 % (11.0-15.5)
[2017-03-28 02:36] LABS: DIFF IND NO; WHITE BLOOD COUNT 13.1 X10e3 (4.0-10.5)
[2017-03-28 02:56] LABS: ALBUMIN SERUM 1.9 g/dL (3.5-5.0); BILIRUBIN, DIRECT 0.8 mg/dL (0.0-0.2); BILIRUBIN,TOTAL 1.8 mg/dL (0.2-2.0); BUN/CREATININE RATIO 11.81; CALCIUM SERUM 7.6 mg/dL (8.4-10.2); CREATININE SERUM 1.1 mg/dL (0.6-1.4); GLOM FILT RATE Estimated 74.1 mL/min (>60); MAGNESIUM 1.8 mg/dL (1.6-3.0); POTASSIUM 3.2 mmol/L (3.5-5.1); PROTEIN TOTAL SERUM 6.5 g/dL (6.0-8.3)
[2017-03-28 03:12] LABS: %MB 3.3 % (0.0-4.0); MB 2.4 ng/ml
[2017-03-28 09:33] LABS: %MB 1.7 % (0.0-4.0); MB 2.3 ng/ml
[2017-03-28 14:36] LABS: ARTERIAL BLOOD GAS HCO3 22.1 mmol/L; ARTERIAL BLOOD GAS PCO2 28.8 mmHg (35.0-45.0); ARTERIAL BLOOD GAS PO2 71.3 mmHg (80.0-100); ARTERIAL BLOOD GAS pH 7.493 (7.350-7.450)
[2017-03-28 14:37] LABS: ARTERIAL BLD GAS O2 SATURATION 95.8 % (90.0-100.0); ARTERIAL BLOOD GAS ALLEN TEST NORMAL; ARTERIAL BLOOD GAS ART SITE RIGHT RADIAL; ARTERIAL BLOOD GAS DELIVERY ROOM AIR; ARTERIAL BLOOD GAS MET HB 0.5 %sat (0.0-2.0); ARTERIAL DRAW? YES
[2017-03-28 15:54] LABS: ARTERIAL BLOOD GAS PCO2 33.5 mmHg (35.0-45.0); ARTERIAL BLOOD GAS pH 7.426 (7.350-7.450)
[2017-03-28 15:55] LABS: ARTERIAL BLD GAS O2 SATURATION 98.8 % (90.0-100.0); ARTERIAL BLOOD GAS ALLEN TEST NORMAL; ARTERIAL BLOOD GAS ART SITE RIGHT RADIAL; ARTERIAL BLOOD GAS CARBOXY HB 0.8 %sat (0.0-9.0); ARTERIAL BLOOD GAS DELIVERY VENT; ARTERIAL BLOOD GAS HCO3 22.1 mmol/L; ARTERIAL BLOOD GAS MET HB 0.5 %sat (0.0-2.0); ARTERIAL BLOOD GAS VENT MODE AC; ARTERIAL DRAW? YES
[2017-03-28 16:09] LABS: INR 1.5; PARTIAL THROMBOPLASTIN TIME 33.4 SECONDS (23.5-31.3); PROTHROMBIN TIME (PATIENT) 16.2 SECONDS (9.6-11.5)
[2017-03-28 17:32] LABS: CALCIUM SERUM 7.2 mg/dL (8.4-10.2); CREATININE SERUM 0.8 mg/dL (0.6-1.4); GLOM FILT RATE Estimated 99.2 mL/min (>60); POTASSIUM 4.2 mmol/L (3.5-5.1)
[2017-03-29 04:09] LABS: ARTERIAL BLD GAS O2 SATURATION 98.4 % (90.0-100.0); ARTERIAL BLOOD GAS HCO3 22.2 mmol/L; ARTERIAL BLOOD GAS PCO2 34.6 mmHg (35.0-45.0); ARTERIAL BLOOD GAS PO2 92.3 mmHg (80.0-100); ARTERIAL BLOOD GAS pH 7.414 (7.350-7.450)
[2017-03-29 04:10] LABS: ARTERIAL BLOOD GAS ALLEN TEST NORMAL; ARTERIAL BLOOD GAS ART SITE RIGHT RADIAL; ARTERIAL BLOOD GAS DELIVERY VENT; ARTERIAL BLOOD GAS MET HB 0.9 %sat (0.0-2.0); ARTERIAL BLOOD GAS VENT MODE A/C; ARTERIAL DRAW? YES
[2017-03-29 05:29] LABS: ALBUMIN SERUM 1.5 g/dL (3.5-5.0); BILIRUBIN,TOTAL 1.3 mg/dL (0.2-2.0); BUN/CREATININE RATIO 22.5; CALCIUM SERUM 7.4 mg/dL (8.4-10.2); CREATININE SERUM 0.8 mg/dL (0.6-1.4); GLOM FILT RATE Estimated 99.2 mL/min (>60); MAGNESIUM 1.8 mg/dL (1.6-3.0); POTASSIUM 4.1 mmol/L (3.5-5.1); PROTEIN TOTAL SERUM 5.1 g/dL (6.0-8.3)
[2017-03-29 08:07] LABS: BASOPHIL# 0.1 X10e3 (0-0.3); BASOPHIL% 0.8 % (0-2.5); EOSINOPHIL% 0.3 % (0.0-7.0); LYMPHOCYTE% 8.5 % (17.0-45.0); MEAN CELL VOLUME 105.4 FL (83-96); MEAN CORPUSCULAR HGB CONC 32.2 g/dL (30-36); MEAN PLATELET VOLUME 10.1 FL (6.5-11.5); MONOCYTE# 0.8 X10e3 (0-1.0); MONOCYTE% 6.7 % (3.0-12.0); NEUTROPHIL# 9.6 X10e3 (1.5-7.1); NEUTROPHIL% 83.7 % (40-75); PLATELET COUNT 116 X10e3 (140-420); RED BLOOD COUNT 1.99 X10e (3.90-5.60); RED CELL DISTRIBUTION WIDTH 15.7 % (11.0-15.5); WHITE BLOOD COUNT 11.5 X10e3 (4.0-10.5)
[2017-03-29 08:18] LABS: HEMOGLOBIN 6.8 gm/dL (13.0-16.0)
[2017-03-29 08:19] LABS: DIFF IND YES
[2017-03-29 09:30] LABS: URINE SOURCE CLEAN CATCH
[2017-03-29 09:39] LABS: URINE APPEARANCE HAZY; URINE BILIRUBIN NEG (NEG); URINE BLOOD 1+ (NEG); URINE COLOR YELLOW; URINE GLUCOSE NORM (NORM); URINE KETONE NEG (NEG); URINE LEUKOCYTE ESTERASE NEG (NEG); URINE NITRATE NEG (NEG); URINE PROTEIN NEG (NEG); URINE UROBILINOGEN NORM (NORM)
[2017-03-29 10:36] LABS: URINE BACTERIA AUWI N (NEGATIVE); URINE SQUAMOUS EPITHELIAL CELL FEW /[HPF]
[2017-03-29 10:37] LABS: U HYALINE CASTS AUWI 0-2 /[LPF]; URINE AMORPHOUS SEDIMENT AMORP URATES; URINE CRYSTALS URIC ACID /[HPF]; URINE GRANULAR CAST 0-2 /[HPF]; URINE MUCUS PRESENT; URINE YEAST PRESENT
[2017-03-29 10:48] LABS: PLATELET ESTIMATE DECREASED (NORMAL)
[2017-03-29 10:49] LABS: ANISOCYTOSIS SL; POIKILOCYTOSIS SL
[2017-03-29 11:25] LABS: AMPHETAMINE NEG (NEG); BARBITURATES NEG (NEG); BENZODIAZEPINES POS (NEG); COCAINE NEG (NEG); MARIJUANA NEG (NEG); OPIATES POS (NEG); TRICYCLIC ANTIDEPRESSANTS NEG (NEG); U METHADONE NEG (NEG)
[2017-03-29 15:40] LABS: HEMATOCRIT 25.7 % (38.0-50.0); HEMOGLOBIN 8.3 gm/dL (13.0-16.0)
[2017-03-29 22:44] LABS: HEMATOCRIT 24.7 % (38.0-50.0); HEMOGLOBIN 8.1 gm/dL (13.0-16.0)
[2017-03-30 04:27] LABS: ARTERIAL BLD GAS O2 SATURATION 98.5 % (90.0-100.0); ARTERIAL BLOOD GAS ART SITE LEFT BRACHIAL; ARTERIAL BLOOD GAS CARBOXY HB 0.9 %sat (0.0-9.0); ARTERIAL BLOOD GAS DELIVERY VENT; ARTERIAL BLOOD GAS HCO3 20.3 mmol/L; ARTERIAL BLOOD GAS MET HB 0.8 %sat (0.0-2.0); ARTERIAL BLOOD GAS PCO2 35.1 mmHg (35.0-45.0); ARTERIAL BLOOD GAS VENT MODE AC; ARTERIAL BLOOD GAS pH 7.369 (7.350-7.450); ARTERIAL DRAW? YES
[2017-03-30 05:20] LABS: BASOPHIL# 0.1 X10e3 (0-0.3); BASOPHIL% 0.5 % (0-2.5); EOSINOPHIL# 0.1 X10e3 (0-0.7); EOSINOPHIL% 0.6 % (0.0-7.0); HEMOGLOBIN 8.4 gm/dL (13.0-16.0); LYMPHOCYTE# 0.9 X10e3 (1.0-3.5); LYMPHOCYTE% 4.8 % (17.0-45.0); MEAN CORPUSCULAR HEMOGLOBIN 32.8 PG (28-34); MEAN CORPUSCULAR HGB CONC 32.4 g/dL (30-36); MEAN PLATELET VOLUME 9.8 FL (6.5-11.5); MONOCYTE# 0.8 X10e3 (0-1.0); MONOCYTE% 4.1 % (3.0-12.0); NEUTROPHIL# 16.5 X10e3 (1.5-7.1); PLATELET COUNT 154 X10e3 (140-420); RED BLOOD COUNT 2.57 X10e (3.90-5.60); RED CELL DISTRIBUTION WIDTH 17.9 % (11.0-15.5)
[2017-03-30 05:33] LABS: DIFF IND YES; MEAN CELL VOLUME 101.3 FL (83-96); WHITE BLOOD COUNT 18.3 X10e3 (4.0-10.5)
[2017-03-30 05:45] LABS: ALBUMIN SERUM 1.3 g/dL (3.5-5.0); BILIRUBIN,TOTAL 1.5 mg/dL (0.2-2.0); CALCIUM SERUM 7.3 mg/dL (8.4-10.2); CREATININE SERUM 0.6 mg/dL (0.6-1.4); GLOM FILT RATE Estimated 111.7 mL/min (>60); MAGNESIUM 1.7 mg/dL (1.6-3.0); PHOSPHOROUS 2.9 mg/dL (2.5-4.6); POTASSIUM 3.6 mmol/L (3.5-5.1); PROTEIN TOTAL SERUM 4.8 g/dL (6.0-8.3)
[2017-03-30 06:21] LABS: ANISOCYTOSIS SL
[2017-03-30 06:22] LABS: PLATELET ESTIMATE NORMAL (NORMAL)
[2017-03-30 10:22] LABS: HEMATOCRIT 26.1 % (38.0-50.0); HEMOGLOBIN 8.5 gm/dL (13.0-16.0)
[2017-03-31 06:07] LABS: ALBUMIN SERUM 1.5 g/dL (3.5-5.0); BILIRUBIN,TOTAL 1.5 mg/dL (0.2-2.0); BUN/CREATININE RATIO 16.66; CALCIUM SERUM 7.4 mg/dL (8.4-10.2); CREATININE SERUM 0.6 mg/dL (0.6-1.4); GLOM FILT RATE Estimated 111.7 mL/min (>60); MAGNESIUM 1.6 mg/dL (1.6-3.0); PHOSPHOROUS 3.1 mg/dL (2.5-4.6); POTASSIUM 3.2 mmol/L (3.5-5.1); PROTEIN TOTAL SERUM 4.8 g/dL (6.0-8.3)
[2017-03-31 08:36] LABS: BASOPHIL# 0.1 X10e3 (0-0.3); BASOPHIL% 0.6 % (0-2.5); EOSINOPHIL# 0.1 X10e3 (0-0.7); EOSINOPHIL% 0.4 % (0.0-7.0); HEMOGLOBIN 8.2 gm/dL (13.0-16.0); LYMPHOCYTE% 6.3 % (17.0-45.0); MEAN CELL VOLUME 102.2 FL (83-96); MEAN CORPUSCULAR HEMOGLOBIN 32.4 PG (28-34); MEAN CORPUSCULAR HGB CONC 31.7 g/dL (30-36); MEAN PLATELET VOLUME 9.5 FL (6.5-11.5); MONOCYTE# 0.9 X10e3 (0-1.0); NEUTROPHIL# 13.5 X10e3 (1.5-7.1); NEUTROPHIL% 86.7 % (40-75); PLATELET COUNT 132 X10e3 (140-420); RED BLOOD COUNT 2.55 X10e (3.90-5.60); RED CELL DISTRIBUTION WIDTH 17.8 % (11.0-15.5); WHITE BLOOD COUNT 15.6 X10e3 (4.0-10.5)
[2017-03-31 08:37] LABS: DIFF IND NO
[2017-04-01 04:04] LABS: BASOPHIL# 0.1 X10e3 (0-0.3); BASOPHIL% 0.5 % (0-2.5); EOSINOPHIL# 0.1 X10e3 (0-0.7); EOSINOPHIL% 0.6 % (0.0-7.0); HEMATOCRIT 25.3 % (38.0-50.0); LYMPHOCYTE% 8.2 % (17.0-45.0); MEAN CELL VOLUME 101.9 FL (83-96); MEAN CORPUSCULAR HEMOGLOBIN 32.3 PG (28-34); MEAN CORPUSCULAR HGB CONC 31.7 g/dL (30-36); MEAN PLATELET VOLUME 9.6 FL (6.5-11.5); MONOCYTE# 0.9 X10e3 (0-1.0); MONOCYTE% 7.5 % (3.0-12.0); NEUTROPHIL# 10.1 X10e3 (1.5-7.1); NEUTROPHIL% 83.2 % (40-75); PLATELET COUNT 104 X10e3 (140-420); RED BLOOD COUNT 2.48 X10e (3.90-5.60); WHITE BLOOD COUNT 12.1 X10e3 (4.0-10.5)
[2017-04-01 04:05] LABS: DIFF IND NO
[2017-04-01 04:16] LABS: ALBUMIN SERUM 1.8 g/dL (3.5-5.0); BILIRUBIN,TOTAL 1.7 mg/dL (0.2-2.0); BUN/CREATININE RATIO 11.11; CALCIUM SERUM 7.5 mg/dL (8.4-10.2); CREATININE SERUM 0.9 mg/dL (0.6-1.4); GLOM FILT RATE Estimated 94.5 mL/min (>60); MAGNESIUM 1.4 mg/dL (1.6-3.0); PHOSPHOROUS 3.3 mg/dL (2.5-4.6); POTASSIUM 3.3 mmol/L (3.5-5.1); PROTEIN TOTAL SERUM 5.3 g/dL (6.0-8.3)
[2017-04-01 04:26] LABS: ARTERIAL BLOOD GAS PCO2 35.2 mmHg (35.0-45.0); ARTERIAL BLOOD GAS pH 7.344 (7.350-7.450)
[2017-04-01 04:27] LABS: ARTERIAL BLD GAS O2 SATURATION 94.6 % (90.0-100.0); ARTERIAL BLOOD GAS ALLEN TEST NORMAL; ARTERIAL BLOOD GAS ART SITE LEFT RADIAL; ARTERIAL BLOOD GAS DELIVERY VENT; ARTERIAL BLOOD GAS HCO3 19.2 mmol/L; ARTERIAL BLOOD GAS MET HB 0.6 %sat (0.0-2.0); ARTERIAL BLOOD GAS PO2 73.2 mmHg (80.0-100); ARTERIAL BLOOD GAS VENT MODE AC; ARTERIAL DRAW? YES
[2017-04-02 05:03] LABS: ARTERIAL BLOOD GAS HCO3 22.2 mmol/L; ARTERIAL BLOOD GAS PCO2 38.6 mmHg (35.0-45.0); ARTERIAL BLOOD GAS PO2 79.2 mmHg (80.0-100); ARTERIAL BLOOD GAS pH 7.368 (7.350-7.450)
[2017-04-02 05:04] LABS: ARTERIAL BLD GAS O2 SATURATION 96.2 % (90.0-100.0); ARTERIAL BLOOD GAS ALLEN TEST NORMAL; ARTERIAL BLOOD GAS ART SITE LEFT RADIAL; ARTERIAL BLOOD GAS CARBOXY HB 0.8 %sat (0.0-9.0); ARTERIAL BLOOD GAS DELIVERY VENT; ARTERIAL BLOOD GAS MET HB 0.6 %sat (0.0-2.0); ARTERIAL BLOOD GAS VENT MODE AC; ARTERIAL DRAW? YES
[2017-04-02 06:53] LABS: ALBUMIN SERUM 1.6 g/dL (3.5-5.0); BILIRUBIN,TOTAL 1.2 mg/dL (0.2-2.0); BUN/CREATININE RATIO 13.75; CALCIUM SERUM 7.8 mg/dL (8.4-10.2); CREATININE SERUM 0.8 mg/dL (0.6-1.4); GLOM FILT RATE Estimated 99.2 mL/min (>60); MAGNESIUM 1.5 mg/dL (1.6-3.0); POTASSIUM 3.6 mmol/L (3.5-5.1); PROTEIN TOTAL SERUM 5.1 g/dL (6.0-8.3)
[2017-04-02 09:27] LABS: BASOPHIL# 0.1 X10e3 (0-0.3); BASOPHIL% 0.6 % (0-2.5); EOSINOPHIL# 0.1 X10e3 (0-0.7); EOSINOPHIL% 0.8 % (0.0-7.0); HEMATOCRIT 25.3 % (38.0-50.0); HEMOGLOBIN 8.1 gm/dL (13.0-16.0); LYMPHOCYTE# 1.3 X10e3 (1.0-3.5); LYMPHOCYTE% 11.5 % (17.0-45.0); MEAN CELL VOLUME 100.6 FL (83-96); MEAN CORPUSCULAR HEMOGLOBIN 32.2 PG (28-34); MEAN PLATELET VOLUME 9.3 FL (6.5-11.5); MONOCYTE% 8.6 % (3.0-12.0); NEUTROPHIL% 78.5 % (40-75); PLATELET COUNT 98 X10e3 (140-420); RED BLOOD COUNT 2.52 X10e (3.90-5.60); RED CELL DISTRIBUTION WIDTH 16.8 % (11.0-15.5); WHITE BLOOD COUNT 11.4 X10e3 (4.0-10.5)
[2017-04-02 10:08] LABS: DIFF IND YES
[2017-04-02 10:10] LABS: ANISOCYTOSIS SL; HYPOCHROMIA SL; PLATELET ESTIMATE DECREASED (NORMAL)
[2017-04-02 17:48] LABS: HEMATOCRIT 27.1 % (38.0-50.0); HEMOGLOBIN 8.7 gm/dL (13.0-16.0)
[2017-04-03 05:21] LABS: ARTERIAL BLOOD GAS HCO3 24.3 mmol/L; ARTERIAL BLOOD GAS PCO2 38.9 mmHg (35.0-45.0); ARTERIAL BLOOD GAS PO2 66.5 mmHg (80.0-100); ARTERIAL BLOOD GAS pH 7.403 (7.350-7.450)
[2017-04-03 05:22] LABS: ARTERIAL BLD GAS O2 SATURATION 93.5 % (90.0-100.0); ARTERIAL BLOOD GAS ALLEN TEST NORMAL; ARTERIAL BLOOD GAS ART SITE LEFT BRACHIAL; ARTERIAL BLOOD GAS DELIVERY VENT; ARTERIAL BLOOD GAS MET HB 0.6 %sat (0.0-2.0); ARTERIAL DRAW? YES
[2017-04-03 05:23] LABS: ARTERIAL BLOOD GAS VENT MODE AC
[2017-04-03 06:42] LABS: BASOPHIL# 0.1 X10e3 (0-0.3); BASOPHIL% 0.7 % (0-2.5); EOSINOPHIL# 0.1 X10e3 (0-0.7); EOSINOPHIL% 0.6 % (0.0-7.0); HEMATOCRIT 24.9 % (38.0-50.0); HEMOGLOBIN 7.8 gm/dL (13.0-16.0); LYMPHOCYTE# 2.2 X10e3 (1.0-3.5); LYMPHOCYTE% 12.3 % (17.0-45.0); MEAN CELL VOLUME 101.4 FL (83-96); MEAN CORPUSCULAR HGB CONC 31.6 g/dL (30-36); MEAN PLATELET VOLUME 9.7 FL (6.5-11.5); MONOCYTE# 1.3 X10e3 (0-1.0); MONOCYTE% 7.4 % (3.0-12.0); PLATELET COUNT 109 X10e3 (140-420); RED BLOOD COUNT 2.45 X10e (3.90-5.60); RED CELL DISTRIBUTION WIDTH 16.8 % (11.0-15.5)
[2017-04-03 06:55] LABS: WHITE BLOOD COUNT 17.7 X10e3 (4.0-10.5)
[2017-04-03 06:56] LABS: DIFF IND YES
[2017-04-03 07:05] LABS: ALBUMIN SERUM 1.6 g/dL (3.5-5.0); BUN/CREATININE RATIO 10.9; CALCIUM SERUM 7.8 mg/dL (8.4-10.2); CREATININE SERUM 1.1 mg/dL (0.6-1.4); GLOM FILT RATE Estimated 74.1 mL/min (>60); POTASSIUM 3.8 mmol/L (3.5-5.1); PROTEIN TOTAL SERUM 5.7 g/dL (6.0-8.3)
[2017-04-03 07:37] LABS: PLATELET ESTIMATE DECREASED (NORMAL); RBC NORMAL YES
[2017-04-03 07:40] LABS: ANISOCYTOSIS SL; POIKILOCYTOSIS SL
[2017-04-04 04:29] LABS: BASOPHIL# 0.2 X10e3 (0-0.3); BASOPHIL% 0.7 % (0-2.5); DIFF IND NO; EOSINOPHIL# 0.1 X10e3 (0-0.7); EOSINOPHIL% 0.5 % (0.0-7.0); HEMATOCRIT 25.1 % (38.0-50.0); LYMPHOCYTE% 8.4 % (17.0-45.0); MEAN CELL VOLUME 100.5 FL (83-96); MEAN CORPUSCULAR HEMOGLOBIN 31.8 PG (28-34); MEAN CORPUSCULAR HGB CONC 31.6 g/dL (30-36); MEAN PLATELET VOLUME 9.5 FL (6.5-11.5); MONOCYTE# 1.1 X10e3 (0-1.0); MONOCYTE% 4.5 % (3.0-12.0); NEUTROPHIL# 20.5 X10e3 (1.5-7.1); NEUTROPHIL% 85.9 % (40-75); PLATELET COUNT 149 X10e3 (140-420); RED CELL DISTRIBUTION WIDTH 16.9 % (11.0-15.5); WHITE BLOOD COUNT 23.9 X10e3 (4.0-10.5)
[2017-04-04 05:00] LABS: ALBUMIN SERUM 1.5 g/dL (3.5-5.0); BILIRUBIN,TOTAL 1.3 mg/dL (0.2-2.0); BUN/CREATININE RATIO 17.77; CALCIUM SERUM 7.5 mg/dL (8.4-10.2); CREATININE SERUM 0.9 mg/dL (0.6-1.4); GLOM FILT RATE Estimated 94.5 mL/min (>60); MAGNESIUM 1.8 mg/dL (1.6-3.0); PHOSPHOROUS 4.8 mg/dL (2.5-4.6); POTASSIUM 3.8 mmol/L (3.5-5.1)
[2017-04-04 05:11] LABS: ARTERIAL BLD GAS O2 SATURATION 96.7 % (90.0-100.0); ARTERIAL BLOOD GAS ALLEN TEST NORMAL; ARTERIAL BLOOD GAS ART SITE LEFT RADIAL; ARTERIAL BLOOD GAS CARBOXY HB 1.1 %sat (0.0-9.0); ARTERIAL BLOOD GAS DELIVERY VENT; ARTERIAL BLOOD GAS HCO3 25.6 mmol/L; ARTERIAL BLOOD GAS MET HB 0.8 %sat (0.0-2.0); ARTERIAL BLOOD GAS PCO2 42.4 mmHg (35.0-45.0); ARTERIAL BLOOD GAS PO2 82.5 mmHg (80.0-100); ARTERIAL BLOOD GAS VENT MODE AC; ARTERIAL BLOOD GAS pH 7.388 (7.350-7.450); ARTERIAL DRAW? YES
[2017-04-04 08:21] LABS: ARTERIAL BLD GAS O2 SATURATION 93.2 % (90.0-100.0); ARTERIAL BLOOD GAS CARBOXY HB 0.9 %sat (0.0-9.0); ARTERIAL BLOOD GAS HCO3 24.6 mmol/L; ARTERIAL BLOOD GAS MET HB 0.6 %sat (0.0-2.0); ARTERIAL BLOOD GAS PCO2 37.6 mmHg (35.0-45.0); ARTERIAL BLOOD GAS PO2 66.8 mmHg (80.0-100); ARTERIAL BLOOD GAS pH 7.425 (7.350-7.450)
[2017-04-04 08:22] LABS: ARTERIAL BLOOD GAS ART SITE LEFT RADIAL; ARTERIAL BLOOD GAS DELIVERY VENT; ARTERIAL BLOOD GAS VENT MODE CPAP; ARTERIAL DRAW? YES
[2017-04-04 15:07] LABS: URINE APPEARANCE CLEAR; URINE BILIRUBIN NEG (NEG); URINE BLOOD 1+ (NEG); URINE COLOR YELLOW; URINE GLUCOSE NEG (NEG); URINE KETONE NEG (NEG); URINE LEUKOCYTE ESTERASE TRACE (NEG); URINE NITRATE NEG (NEG); URINE PROTEIN NEG (NEG); URINE SPECIFIC GRAVITY 1.014 (1.003-1.035); URINE UROBILINOGEN 0.2 MG/DL (NEG)
[2017-04-04 15:08] LABS: URINE BACTERIA AUWI NEG (NEGATIVE); URINE SQUAMOUS EPITHELIAL CELL NONE SEEN /[HPF]
[2017-04-04 15:20] LABS: CULTURE INDICATED? NO
[2017-04-05 04:00] LABS: INR 1.1; PROTHROMBIN TIME (PATIENT) 12.4 SECONDS (10.0-11.7)
[2017-04-05 04:02] LABS: HEMATOCRIT 22.1 % (38.0-50.0); MEAN CELL VOLUME 100.4 FL (83-96); MEAN CORPUSCULAR HEMOGLOBIN 31.9 PG (28-34); MEAN CORPUSCULAR HGB CONC 31.7 g/dL (30-36); MEAN PLATELET VOLUME 9.5 FL (6.5-11.5); RED BLOOD COUNT 2.2 X10e (3.90-5.60); RED CELL DISTRIBUTION WIDTH 16.5 % (11.0-15.5)
[2017-04-05 04:10] LABS: WHITE BLOOD COUNT 11.4 X10e3 (4.0-10.5)
[2017-04-05 04:19] LABS: ALBUMIN SERUM 1.5 g/dL (3.5-5.0); CALCIUM SERUM 7.5 mg/dL (8.4-10.2); CREATININE SERUM 0.9 mg/dL (0.6-1.4); GLOM FILT RATE Estimated 94.5 mL/min (>60); MAGNESIUM 1.7 mg/dL (1.6-3.0); POTASSIUM 3.5 mmol/L (3.5-5.1); PROTEIN TOTAL SERUM 6.1 g/dL (6.0-8.3)
[2017-04-05 04:58] LABS: ARTERIAL BLD GAS O2 SATURATION 97.1 % (90.0-100.0); ARTERIAL BLOOD GAS ALLEN TEST NORMAL; ARTERIAL BLOOD GAS ART SITE LEFT RADIAL; ARTERIAL BLOOD GAS CARBOXY HB 0.8 %sat (0.0-9.0); ARTERIAL BLOOD GAS DELIVERY VENT; ARTERIAL BLOOD GAS HCO3 26.7 mmol/L; ARTERIAL BLOOD GAS MET HB 0.5 %sat (0.0-2.0); ARTERIAL BLOOD GAS PCO2 42.9 mmHg (35.0-45.0); ARTERIAL BLOOD GAS PO2 84.4 mmHg (80.0-100); ARTERIAL BLOOD GAS VENT MODE AC; ARTERIAL BLOOD GAS pH 7.403 (7.350-7.450); ARTERIAL DRAW? YES
[2017-04-05 18:34] LABS: HEMATOCRIT 26.1 % (38.0-50.0); HEMOGLOBIN 8.5 gm/dL (13.0-16.0); MEAN CELL VOLUME 99.6 FL (83-96); MEAN CORPUSCULAR HEMOGLOBIN 32.5 PG (28-34); MEAN CORPUSCULAR HGB CONC 32.6 g/dL (30-36); MEAN PLATELET VOLUME 9.3 FL (6.5-11.5); RED BLOOD COUNT 2.62 X10e (3.90-5.60); RED CELL DISTRIBUTION WIDTH 16.7 % (11.0-15.5); WHITE BLOOD COUNT 8.5 X10e3 (4.0-10.5)
[2017-04-05 18:58] LABS: AMYLASE 19 U/L (0-46); LIPASE 19 U/L (22-51)
[2017-04-06 04:26] LABS: BASOPHIL# 0.1 X10e3 (0-0.3); BASOPHIL% 0.6 % (0-2.5); EOSINOPHIL# 0.1 X10e3 (0-0.7); EOSINOPHIL% 0.8 % (0.0-7.0); HEMATOCRIT 26.3 % (38.0-50.0); HEMOGLOBIN 8.4 gm/dL (13.0-16.0); LYMPHOCYTE# 1.2 X10e3 (1.0-3.5); LYMPHOCYTE% 13.7 % (17.0-45.0); MEAN CELL VOLUME 99.3 FL (83-96); MEAN CORPUSCULAR HEMOGLOBIN 31.8 PG (28-34); MEAN CORPUSCULAR HGB CONC 32.1 g/dL (30-36); MEAN PLATELET VOLUME 9.6 FL (6.5-11.5); MONOCYTE# 0.4 X10e3 (0-1.0); MONOCYTE% 4.8 % (3.0-12.0); NEUTROPHIL# 6.7 X10e3 (1.5-7.1); NEUTROPHIL% 80.1 % (40-75); PLATELET COUNT 108 X10e3 (140-420); RED BLOOD COUNT 2.65 X10e (3.90-5.60); RED CELL DISTRIBUTION WIDTH 16.7 % (11.0-15.5); WHITE BLOOD COUNT 8.4 X10e3 (4.0-10.5)
[2017-04-06 04:27] LABS: DIFF IND NO
[2017-04-06 04:44] LABS: ALBUMIN SERUM 1.6 g/dL (3.5-5.0); BILIRUBIN,TOTAL 0.9 mg/dL (0.2-2.0); BUN/CREATININE RATIO 24.28; CALCIUM SERUM 7.6 mg/dL (8.4-10.2); CREATININE SERUM 0.7 mg/dL (0.6-1.4); GLOM FILT RATE Estimated 104.8 mL/min (>60); MAGNESIUM 1.9 mg/dL (1.6-3.0); PHOSPHOROUS 3.8 mg/dL (2.5-4.6); POTASSIUM 3.6 mmol/L (3.5-5.1); PROTEIN TOTAL SERUM 6.1 g/dL (6.0-8.3)
[2017-04-06 04:55] LABS: ARTERIAL BLD GAS O2 SATURATION 96.9 % (90.0-100.0); ARTERIAL BLOOD GAS ALLEN TEST NORMAL; ARTERIAL BLOOD GAS ART SITE RIGHT RADIAL; ARTERIAL BLOOD GAS CARBOXY HB 1.1 %sat (0.0-9.0); ARTERIAL BLOOD GAS DELIVERY VENT; ARTERIAL BLOOD GAS HCO3 26.6 mmol/L; ARTERIAL BLOOD GAS MET HB 1.2 %sat (0.0-2.0); ARTERIAL BLOOD GAS PCO2 40.1 mmHg (35.0-45.0); ARTERIAL BLOOD GAS PO2 82.8 mmHg (80.0-100); ARTERIAL BLOOD GAS VENT MODE AC; ARTERIAL DRAW? YES
[2017-04-07 04:15] LABS: HEMATOCRIT 23.4 % (38.0-50.0); HEMOGLOBIN 7.6 gm/dL (13.0-16.0); MEAN CELL VOLUME 99.4 FL (83-96); MEAN CORPUSCULAR HEMOGLOBIN 32.3 PG (28-34); MEAN CORPUSCULAR HGB CONC 32.5 g/dL (30-36); MEAN PLATELET VOLUME 9.1 FL (6.5-11.5); RED BLOOD COUNT 2.35 X10e (3.90-5.60); RED CELL DISTRIBUTION WIDTH 16.5 % (11.0-15.5); WHITE BLOOD COUNT 7.9 X10e3 (4.0-10.5)
[2017-04-07 04:25] LABS: ALBUMIN SERUM 1.5 g/dL (3.5-5.0); BILIRUBIN,TOTAL 1.3 mg/dL (0.2-2.0); CALCIUM SERUM 7.4 mg/dL (8.4-10.2); GLOM FILT RATE Estimated 83.2 mL/min (>60); POTASSIUM 3.4 mmol/L (3.5-5.1)
[2017-04-07 10:03] LABS: BF TOTAL NUCLEATED CELL COUNT 165 CMM (0-100); BODY FLUID APPEARANCE CLEAR; BODY FLUID RBC <10000 CMM; BODY FLUID SOURCE PERITONEAL
[2017-04-08 04:05] LABS: ARTERIAL BLD GAS O2 SATURATION 98.5 % (90.0-100.0); ARTERIAL BLOOD GAS CARBOXY HB 0.7 %sat (0.0-9.0); ARTERIAL BLOOD GAS HCO3 21.7 mmol/L; ARTERIAL BLOOD GAS MET HB 0.7 %sat (0.0-2.0); ARTERIAL BLOOD GAS PCO2 33.9 mmHg (35.0-45.0); ARTERIAL BLOOD GAS pH 7.415 (7.350-7.450)
[2017-04-08 04:06] LABS: ARTERIAL BLOOD GAS ALLEN TEST NORMAL; ARTERIAL BLOOD GAS ART SITE RIGHT RADIAL; ARTERIAL BLOOD GAS DELIVERY VENT; ARTERIAL BLOOD GAS VENT MODE SIMV; ARTERIAL DRAW? YES
[2017-04-08 06:36] LABS: MAGNESIUM 1.8 mg/dL (1.6-3.0)
[2017-04-09 06:34] LABS: HEMATOCRIT 23.7 % (38.0-50.0); HEMOGLOBIN 7.7 gm/dL (13.0-16.0); MEAN CELL VOLUME 98.8 FL (83-96); MEAN CORPUSCULAR HEMOGLOBIN 32.2 PG (28-34); MEAN CORPUSCULAR HGB CONC 32.6 g/dL (30-36); MEAN PLATELET VOLUME 9.5 FL (6.5-11.5); RED BLOOD COUNT 2.4 X10e (3.90-5.60); WHITE BLOOD COUNT 7.2 X10e3 (4.0-10.5)
[2017-04-09 07:00] LABS: BUN/CREATININE RATIO 17.14; CALCIUM SERUM 7.3 mg/dL (8.4-10.2); CREATININE SERUM 0.7 mg/dL (0.6-1.4); GLOM FILT RATE Estimated 104.8 mL/min (>60); POTASSIUM 3.2 mmol/L (3.5-5.1)
[2017-04-11 05:06] LABS: BASOPHIL% 0.9 % (0-2.5); EOSINOPHIL# 0.1 X10e3 (0-0.7); EOSINOPHIL% 1.6 % (0.0-7.0); HEMATOCRIT 25.9 % (38.0-50.0); HEMOGLOBIN 8.3 gm/dL (13.0-16.0); LYMPHOCYTE# 1.2 X10e3 (1.0-3.5); LYMPHOCYTE% 22.1 % (17.0-45.0); MEAN CELL VOLUME 98.9 FL (83-96); MEAN CORPUSCULAR HEMOGLOBIN 31.6 PG (28-34); MEAN PLATELET VOLUME 9.5 FL (6.5-11.5); MONOCYTE# 0.4 X10e3 (0-1.0); MONOCYTE% 7.9 % (3.0-12.0); NEUTROPHIL# 3.5 X10e3 (1.5-7.1); NEUTROPHIL% 67.5 % (40-75); PLATELET COUNT 195 X10e3 (140-420); RED BLOOD COUNT 2.62 X10e (3.90-5.60); RED CELL DISTRIBUTION WIDTH 16.2 % (11.0-15.5); WHITE BLOOD COUNT 5.2 X10e3 (4.0-10.5)
[2017-04-11 05:07] LABS: DIFF IND NO
[2017-04-11 06:30] LABS: ALBUMIN SERUM 1.4 g/dL (3.5-5.0); BILIRUBIN,TOTAL 0.3 mg/dL (0.2-2.0); BUN/CREATININE RATIO 11.42; CALCIUM SERUM 7.6 mg/dL (8.4-10.2); CREATININE SERUM 0.7 mg/dL (0.6-1.4); GLOM FILT RATE Estimated 104.8 mL/min (>60); MAGNESIUM 1.8 mg/dL (1.6-3.0); POTASSIUM 4.1 mmol/L (3.5-5.1); PROTEIN TOTAL SERUM 6.1 g/dL (6.0-8.3)
[2017-04-12 08:05] LABS: BASOPHIL% 0.8 % (0-2.5); EOSINOPHIL# 0.1 X10e3 (0-0.7); EOSINOPHIL% 0.9 % (0.0-7.0); HEMATOCRIT 23.4 % (38.0-50.0); HEMOGLOBIN 7.6 gm/dL (13.0-16.0); LYMPHOCYTE# 0.8 X10e3 (1.0-3.5); LYMPHOCYTE% 14.6 % (17.0-45.0); MEAN CELL VOLUME 97.3 FL (83-96); MEAN CORPUSCULAR HEMOGLOBIN 31.6 PG (28-34); MEAN CORPUSCULAR HGB CONC 32.4 g/dL (30-36); MEAN PLATELET VOLUME 9.1 FL (6.5-11.5); MONOCYTE# 0.5 X10e3 (0-1.0); MONOCYTE% 8.2 % (3.0-12.0); NEUTROPHIL# 4.3 X10e3 (1.5-7.1); NEUTROPHIL% 75.5 % (40-75); PLATELET COUNT 217 X10e3 (140-420); RED CELL DISTRIBUTION WIDTH 16.1 % (11.0-15.5); WHITE BLOOD COUNT 5.7 X10e3 (4.0-10.5)
[2017-04-12 08:14] LABS: DIFF IND YES
[2017-04-12 08:48] LABS: ANISOCYTOSIS SL; PLATELET ESTIMATE NORMAL (NORMAL); POLYCHROMASIA SL
[2017-04-12 08:58] LABS: ALBUMIN SERUM 1.4 g/dL (3.5-5.0); BILIRUBIN,TOTAL 0.4 mg/dL (0.2-2.0); BUN/CREATININE RATIO 13.33; CALCIUM SERUM 7.5 mg/dL (8.4-10.2); CREATININE SERUM 0.6 mg/dL (0.6-1.4); GLOM FILT RATE Estimated 111.7 mL/min (>60); MAGNESIUM 1.8 mg/dL (1.6-3.0); POTASSIUM 4.1 mmol/L (3.5-5.1); PROTEIN TOTAL SERUM 5.9 g/dL (6.0-8.3)
[2017-04-13 05:49] LABS: BASOPHIL% 0.6 % (0-2.5); EOSINOPHIL# 0.1 X10e3 (0-0.7); HEMOGLOBIN 7.8 gm/dL (13.0-16.0); LYMPHOCYTE# 0.9 X10e3 (1.0-3.5); MEAN CORPUSCULAR HEMOGLOBIN 31.7 PG (28-34); MEAN CORPUSCULAR HGB CONC 32.4 g/dL (30-36); MONOCYTE# 0.4 X10e3 (0-1.0); MONOCYTE% 7.3 % (3.0-12.0); NEUTROPHIL# 4.6 X10e3 (1.5-7.1); NEUTROPHIL% 76.1 % (40-75); PLATELET COUNT 222 X10e3 (140-420); RED BLOOD COUNT 2.45 X10e (3.90-5.60); RED CELL DISTRIBUTION WIDTH 15.9 % (11.0-15.5)
[2017-04-13 05:50] LABS: DIFF IND NO
[2017-04-13 07:04] LABS: ALBUMIN SERUM 1.4 g/dL (3.5-5.0); BILIRUBIN,TOTAL 0.5 mg/dL (0.2-2.0); CALCIUM SERUM 7.7 mg/dL (8.4-10.2); CREATININE SERUM 0.5 mg/dL (0.6-1.4); GLOM FILT RATE Estimated 120.3 mL/min (>60); PROTEIN TOTAL SERUM 6.1 g/dL (6.0-8.3)
[2017-04-14 05:56] LABS: HEMATOCRIT 24.5 % (38.0-50.0); MEAN CORPUSCULAR HGB CONC 32.7 g/dL (30-36); RED BLOOD COUNT 2.5 X10e (3.90-5.60); RED CELL DISTRIBUTION WIDTH 15.8 % (11.0-15.5); WHITE BLOOD COUNT 6.4 X10e3 (4.0-10.5)
[2017-04-14 06:55] LABS: ALBUMIN SERUM 1.5 g/dL (3.5-5.0); BILIRUBIN,TOTAL 0.4 mg/dL (0.2-2.0); CALCIUM SERUM 7.8 mg/dL (8.4-10.2); CREATININE SERUM 0.6 mg/dL (0.6-1.4); GLOM FILT RATE Estimated 111.7 mL/min (>60); MAGNESIUM 1.4 mg/dL (1.6-3.0); POTASSIUM 3.8 mmol/L (3.5-5.1); PROTEIN TOTAL SERUM 6.3 g/dL (6.0-8.3)
[2017-04-15 06:26] LABS: BUN/CREATININE RATIO 11.66; CALCIUM SERUM 7.6 mg/dL (8.4-10.2); CREATININE SERUM 0.6 mg/dL (0.6-1.4); GLOM FILT RATE Estimated 111.7 mL/min (>60); MAGNESIUM 1.7 mg/dL (1.6-3.0); POTASSIUM 3.9 mmol/L (3.5-5.1)
[2017-04-16 08:44] LABS: MAGNESIUM 1.7 mg/dL (1.6-3.0); POTASSIUM 3.8 mmol/L (3.5-5.1)
[2017-04-17 06:29] LABS: MAGNESIUM 1.7 mg/dL (1.6-3.0); POTASSIUM 3.5 mmol/L (3.5-5.1)
[2017-04-18 11:34] LABS: MAGNESIUM 1.6 mg/dL (1.6-3.0); POTASSIUM 3.5 mmol/L (3.5-5.1)
[2017-04-19 07:09] LABS: MAGNESIUM 1.7 mg/dL (1.6-3.0); POTASSIUM 3.3 mmol/L (3.5-5.1)
[2017-04-19 08:41] LABS: HEMOGLOBIN 7.7 gm/dL (13.0-16.0); MEAN CORPUSCULAR HEMOGLOBIN 30.5 PG (28-34); MEAN CORPUSCULAR HGB CONC 32.1 g/dL (30-36); MEAN PLATELET VOLUME 8.7 FL (6.5-11.5); RED BLOOD COUNT 2.53 X10e (3.90-5.60); RED CELL DISTRIBUTION WIDTH 15.2 % (11.0-15.5); WHITE BLOOD COUNT 7.2 X10e3 (4.0-10.5)
== END 2017-04-19 20:16 | DRG 4 ==
LOC: CED 18:39 → C3A PCU 20:40 → CICCU2 20:40 → CEDOF 20:40 → CED 21:13 → C3A PCU 22:17 → CEDOF 22:17 → C3A PCU 22:17 → C4C 03-27 16:05 → CICCU2 03-28 13:57 → C2A 04-10 15:26
PROVIDERS: Family Medicine; Internal Medicine; Internal Medicine Cardiovascular Disease; Internal Medicine Endocrinology, Diabetes & Metabolism; Internal Medicine Gastroenterology; Internal Medicine Nephrology; Internal Medicine Pulmonary Disease; Nurse Practitioner; Obstetrics & Gynecology Gynecology; Orthopaedic Surgery; Physician Assistant Medical
PROC: 0FB98ZX Excision of Common Bile Duct, Via Natural or Artificial Opening Endoscopic, Diagnostic (ICD-10-PCS; 2017-03-26)
PROC: 0F798DZ Dilation of Common Bile Duct with Intraluminal Device, Via Natural or Artificial Opening Endoscopic (ICD-10-PCS; 2017-03-26)
PROC: 5A1955Z Respiratory Ventilation, Greater than 96 Consecutive Hours (ICD-10-PCS; 2017-03-28)
PROC: 0BH17EZ Insertion of Endotracheal Airway into Trachea, Via Natural or Artificial Opening (ICD-10-PCS; 2017-03-28)
PROC: 02HV33Z Insertion of Infusion Device into Superior Vena Cava, Percutaneous Approach (ICD-10-PCS; 2017-03-28)
PROC: B24BYZZ Ultrasonography of Heart with Aorta using Other Contrast (ICD-10-PCS; 2017-03-28)
PROC: 0DJ08ZZ Inspection of Upper Intestinal Tract, Via Natural or Artificial Opening Endoscopic (ICD-10-PCS; 2017-03-29)
PROC: 30233N1 Transfusion of Nonautologous Red Blood Cells into Peripheral Vein, Percutaneous Approach (ICD-10-PCS; 2017-03-29)
PROC: 0BBB8ZX Excision of Left Lower Lobe Bronchus, Via Natural or Artificial Opening Endoscopic, Diagnostic (ICD-10-PCS; 2017-04-02)
PROC: 0BB48ZX Excision of Right Upper Lobe Bronchus, Via Natural or Artificial Opening Endoscopic, Diagnostic (ICD-10-PCS; 2017-04-02)
PROC: 0BB88ZX Excision of Left Upper Lobe Bronchus, Via Natural or Artificial Opening Endoscopic, Diagnostic (ICD-10-PCS; 2017-04-02)
PROC: 0BB38ZX Excision of Right Main Bronchus, Via Natural or Artificial Opening Endoscopic, Diagnostic (ICD-10-PCS; 2017-04-02)
PROC: 0BB78ZX Excision of Left Main Bronchus, Via Natural or Artificial Opening Endoscopic, Diagnostic (ICD-10-PCS; 2017-04-02)
PROC: 0BB68ZX Excision of Right Lower Lobe Bronchus, Via Natural or Artificial Opening Endoscopic, Diagnostic (ICD-10-PCS; 2017-04-02)
PROC: 0B21XFZ Change Tracheostomy Device in Trachea, External Approach (ICD-10-PCS; 2017-04-02)
PROC: 0B113F4 Bypass Trachea to Cutaneous with Tracheostomy Device, Percutaneous Approach (ICD-10-PCS; 2017-04-03)
PROC: 0W9G30Z Drainage of Peritoneal Cavity with Drainage Device, Percutaneous Approach (ICD-10-PCS; 2017-04-07)
PROC: 0W9G30Z Drainage of Peritoneal Cavity with Drainage Device, Percutaneous Approach (ICD-10-PCS; 2017-04-09)
PROC: 0B21XFZ Change Tracheostomy Device in Trachea, External Approach (ICD-10-PCS; principal; 2017-04-15)
DX: K85.20 Alcohol induced acute pancreatitis without necrosis or infection (principal); R65.21 Severe sepsis with septic shock; J69.0 Pneumonitis due to inhalation of food and vomit; A41.9 Sepsis, unspecified organism; G92 Toxic encephalopathy; E43 Unspecified severe protein-calorie malnutrition; R34 Anuria and oliguria; N17.9 Acute kidney failure, unspecified; K83.1 Obstruction of bile duct; J96.01 Acute respiratory failure with hypoxia; F10.231 Alcohol dependence with withdrawal delirium; N39.0 Urinary tract infection, site not specified; K76.6 Portal hypertension; I47.1 Supraventricular tachycardia; K56.7 Ileus, unspecified; Z68.1 Body mass index [BMI] 19.9 or less, adult; D62 Acute posthemorrhagic anemia; K86.0 Alcohol-induced chronic pancreatitis; E87.6 Hypokalemia; K70.31 Alcoholic cirrhosis of liver with ascites; F17.210 Nicotine dependence, cigarettes, uncomplicated; J44.9 Chronic obstructive pulmonary disease, unspecified; I10 Essential (primary) hypertension; R00.0 Tachycardia, unspecified; K29.80 Duodenitis without bleeding; K20.9 Esophagitis, unspecified; K29.70 Gastritis, unspecified, without bleeding; K31.89 Other diseases of stomach and duodenum; E83.42 Hypomagnesemia; R33.9 Retention of urine, unspecified; K70.11 Alcoholic hepatitis with ascites
CPT/HCPCS: 36600; 71010; 74000; 74176; 74230; 74330; 80048; 80053; 80061; 80076; 80307; 81003; 82042; 82150; 82248; 82308; 82550; 82553; 82803; 82947; 83605; 83690; 83735; 83880; 84100; 84132; 84443; 84484; 85014; 85018; 85025; 85027; 85610; 85730; 86301; 86850; 86900; 86901; 86923; 87040; 87070; 87077; 87086; 87102; 87106; 87116; 87205; 87206; 87493; 88104; 88108; 88305; 89051; 92507; 92523-GN; 92526; 92608; 92609; 92611; 93005; 93306; 94002; 94003; 94640; 94760; 94761; 96361; 96374; 96375; 97110; 97116; 97162; 97166; 97530; 97535; 99285; C1769; C9113; J0171; J0330; J0696; J1610; J1650; J1956; J2060; J2250; J2270; J2370; J2405; J2543; J2805; J3010; J3411; J3475; J3490; J7042; P9016; P9047

== ENCOUNTER 2017-05-14 12:08 | Inpatient (IN) | payer OTHER ==
[~2017-05-14] VITALS: Ht 175.3 cm; Wt 54.8 kg
--- NOTE | ~2017-05-14 | CT4 ---
[facility] A Service of [facility] RADIOLOGY TEXT RESULTS PATIENT: JAVI RODRIGUEZ LOCATION: [place] [address]- : 58 UNIT #: [id number] AGE: [address]: ROBERT MORROW MD SEX: M ORDER DR: [id number] [facility] [address] [facility]. [place], [place] [address] [id number] I MR#: [id number] Acc #: [id number] NAME: JAVI RODRIGUEZ. : 1960 SEX: M STUDY DATE/TIME: 05/14/2017 14:32 UNIT: CEDOF ROOM: 77567 STUDY DESCRIPTION: CT Abd and Pelv Wo Cont Attending Physician: Robert Morrow M.D. Ordering Physician: Er Physicians Primary Care Physician: Noe Alexandre M.D. MEDICAL IMAGING REPORT This report is preliminary unless electronic signature is present EXAM CT abdomen and pelvis without contrast INDICATIONS Right lower quadrant pain since yesterday. Nausea, vomiting and diarrhea for [address] scan of the abdomen and pelvis was performed without contrast. Coronal and sagittal reformatted images were obtained. This CT exam was performed with one or more of the following radiation dose reduction techniques: automatic exposure control, adjustment of mA and/or kV according to patient size, and iterative reconstruction. COMPARISON STUDIES Comparison is made with 04/05/2017. FINDINGS There is improved appearance of the lung bases with decreased bilateral lower lobe atelectasis/consolidation. There are areas of fatty infiltration within the liver. There is some pneumobilia. There is a stent within the common bile duct. There is a small amount of air in the fundus of the gallbladder, probably due to the presence of the stent and pneumobilia. The spleen is unremarkable. Small amount of ascites is noted, mainly in the upper abdomen around the liver. The kidneys are unremarkable. The adrenal glands are unremarkable. Re-demonstrated are multiple pancreatic calcifications consistent with chronic pancreatitis. No findings to suggest acute pancreatitis. There are multiple dilated fluid-filled loops of small bowel with transition point located in the right side of the abdomen, best seen on axial image [facility] A Service of [facility] RADIOLOGY TEXT RESULTS PATIENT: JAVI RODRIGUEZ LOCATION: [facility] 549- : 58 UNIT #: [id number] AGE: [address]: ROBERT MORRWO MD SEX: M ORDER DR: [id number] and sagittal image 16. Findings are consistent with a high-grade the small bowel obstruction. The small bowel loops distal to the obstruction or decompressed. PELVIS: Urinary bladder is decompressed. There is a small amount of pelvic ascites. There is gas and stool in the colon. Bone windows are unremarkable. IMPRESSION 1. There are multiple dilated fluid-filled loops of small bowel with a transition point located in the right side of the abdomen consistent with high-grade small bowel obstruction. The small loops distal to the transition point are decompressed. 2. Additional findings as described above. Dictated by... Amaury Alexis M.D. THIS IS AN ELECTRONICALLY VERIFIED REPORT Amaury Alexis M.D. at 05/16/2017 9:05 AM ARS/pcl TD: 05/14/2017 20:54 JOB #: [id number] MEDICAL IMAGING REPORT Page 1 of 1 COPY
--- NOTE | ~2017-05-14 | HP ---
Unit #: [id number] #: [id number] Patient: JAVI RODRIGUEZ [id number] [address] [address] [id number] I MR#: [id number] NAME: JAVI RODRIGUEZ. ROOM: 74828 Age: 57 Sex: M Admission Date: 05/14/2017 : 1960 Attending Physician: Robert Morrow M.D. Primary Care Physician: Noe Alexandre M.D. HISTORY AND PHYSICAL CHIEF COMPLAINT Abdominal pain. HISTORY OF PRESENT ILLNESS The patient is a 57-year-old male with a history of alcohol abuse, cirrhosis, portal vein thrombosis, hypertension and COPD, brought to the emergency room complaining of the abdominal pain. The patient stated the pain has been present since yesterday morning and has been gradually worsening to the point that he cannot take it anymore. The patient was recently discharged from the hospital on April 19 for prolonged hospital stay. The patient also complains of the nausea and vomiting. The patient had a CT of the abdomen that showed a high-grade small bowel obstruction and he is being admitted for the above reasons. Denies any fever. Denies any chills and last bowel movement was yesterday. PAST MEDICAL HISTORY History of a cirrhosis, portal vein thrombosis, hypertension, COPD and pancreatitis. ALLERGIES None. PAST SURGICAL HISTORY None. HOME MEDICATIONS Patient is on DuoNeb, Lortab, Ventolin, Seroquel, Linzess, Aldactone, Protonix, Gas Relief. FAMILY HISTORY Positive for diabetes and lung cancer. SOCIAL HISTORY The patient is . He lives with his daughter and two grandchildren. He drinks half to one pint of whiskey, smokes one pack of tobacco daily, denies any illicit drug abuse. REVIEW OF SYSTEMS Positive for the abdominal pain. Positive for nausea and vomiting. Denies any chest pain. Denies any headache. Denies any fall. Other systems reviewed and all other systems are negative except as mentioned above. Unit #: [id number] #: [id number] Patient: JAVI RODRIGUEZ PHYSICAL EXAMINATION GENERAL APPEARANCE: On examination the patient is lying on a bed not in acute distress. VITAL SIGNS: Temperature 97.6, pulse 109, respiratory rate 20, blood pressure 147/109, sating 98% at room air. HEENT: Head atraumatic and normocephalic. Pupils equal, round and reacting to light and accommodation. Extraocular movements are intact. Patient has an NG tube placed with the drainage of the fluid. NG tube secretion up to 300 mL and continues to drain on low wall suction. NECK: Supple. HEART: Regular rate and rhythm. ABDOMEN: Soft, positive bowel sounds and diffuse tenderness without rebound. Bowel sounds present. EXTREMITIES: No cyanosis. No clubbing. NEUROLOGIC: Alert, awake, oriented. No gross focal motor deficit. DIAGNOSTIC STUDIES LABORATORY DATA: WBC 15.1, hemoglobin 13.3, hematocrit 39.5, platelets 424, neutrophils 92% and sodium 133, potassium 3.2, chloride 95, bicarb 24, glucose 151, creatinine 1.6, AST 18, ALT 9, total protein 8.6, albumin 2.8 and UA shows trace leukocyte esterase and urine WBCs 2 to 5. ASSESSMENT 1. High-grade small bowel obstruction. 2. Hyponatremia. 3. Hypokalemia. 4. Acute kidney injury. PLAN Plan to admit the patient to the inpatient with the telemetry. Patient will have LSA evaluation, already done by Dr. Newton and recommend the ice chips p.o. and recommend a KUB or abdominal series at 2200 tonight and continue with the potassium replacement protocol and continue with the IV fluids D5 1/2NS at 75 mL per hour and check the lactic acid to rule out ischemia. Further recommendations will follow as more lab results are available. Dictated by Alex Jacob/corey TD: 05/14/2017 20:51 JOB #: [id number] HISTORY AND PHYSICAL Page 1 of 1 X ROBERT MORROW MD X HISTORY AND PHYSICAL
--- NOTE | ~2017-05-14 | CR7 ---
[facility] A Service of [facility] RADIOLOGY TEXT RESULTS PATIENT: JAVI RODRIGUEZ LOCATION: [place] [address]- : 58 UNIT #: [id number] AGE: [address]: ROBERT MORROW MD SEX: M ORDER DR: [id number] [facility] [address] [facility]. [place], [place] [address] [id number] I MR#: [id number] Acc #: [id number] NAME: JAVI RODRIGUEZ. : 1960 SEX: M STUDY DATE/TIME: 05/14/2017 22:20 UNIT: CEDOF ROOM: 57768 STUDY DESCRIPTION: CR Abdomen Single AP View Attending Physician: Robert Morrow M.D. Ordering Physician: Mann Newton Jr., M.D. Primary Care Physician: Noe Alexandre M.D. MEDICAL IMAGING REPORT This report is preliminary unless electronic signature is present EXAM Supine radiograph of the abdomen, 05/14/2017. HISTORY Abdominal pain. Pancreatitis. Nasogastric tube placement 2 days duration. REPORT Two supine radiographs of the abdomen are presented. COMPARISON Comparison with CT abdomen and pelvis performed earlier on the same date. FINDINGS Common bile duct stent unchanged. Interval placement of a nasogastric tube which terminates at the level of distal stomach. Ongoing high-grade small bowel obstruction. Please see earlier CT examination for discussion of transition zone in the right hemiabdomen. Dilated loops of small bowel measuring up to about 5.3 cm in diameter. Taking into account radiographic magnification on plain films, probably not significantly changed from earlier CT examination. Small amount of air and stool seen in colon. The small bowel caliber is significantly disproportionate to the colonic caliber consistent with high-grade small bowel obstruction. There is no free air. Generalized haziness over the abdomen and pelvis likely reflects ascites seen on earlier CT examination. There are pancreatic calcifications present consistent with chronic pancreatitis. No acute bony abnormality. Dictated by... Robin Funez M.D. THIS IS AN ELECTRONICALLY VERIFIED REPORT Robin Funez M.D. at 05/15/2017 10:[address] [facility] [facility] A Service of [facility] RADIOLOGY TEXT RESULTS PATIENT: JAVI RODRIGUEZ LOCATION: [place] [address]- : 58 UNIT #: [id number] AGE: [address]: ROBERT MORROW MD SEX: M ORDER DR: Josselin TD: 05/15/2017 15:26 JOB #: [id number] MEDICAL IMAGING REPORT Page 1 of 1 COPY
--- NOTE | ~2017-05-14 | OR ---
Unit #: [id number] #: [id number] Patient: JAVI RODRIGUEZ [id number] [place], [place] [address] [id number] I MR#: [id number] NAME: JAVI RODRIGUEZ ROOM: [facility] Date of Procedure: 05/16/2017 Admission Date: 05/14/2017 Surgeon: Mann Newtno Jr., M.D. : 1960 Attending Physician: Shawanda Morrow M.D. Primary Care Physician: Noe Alexandre M.D. OPERATIVE REPORT INDICATION FOR PROCEDURE The patient is a 57-year-old white male, with a known past history for some partial small bowel obstruction. He was admitted this time with nausea, vomiting, and abdominal pain, and CT compatible with more progressed small bowel obstruction. He was treated for the last 24 to 48 hours with NG tube decompression, but his x-ray repeated yesterday continues to show evidence of small-bowel obstruction. He was brought to the operating room at this time for exploratory laparotomy, lysis of adhesions, possible bowel resection. The patient understands the procedure including the risks, including that of bleeding, intra-abdominal organ injury, and anastomotic leak if a resection was performed, as well as recurrence of his bowel obstruction. PREOPERATIVE DIAGNOSIS Small bowel obstruction secondary to adhesions. POSTOPERATIVE DIAGNOSES Small bowel obstruction secondary to adhesions, noting a large amount of ascitic fluid within the abdomen. ANESTHESIA General with endotracheal intubation. PROCEDURES PERFORMED Exploratory laparotomy, extensive lysis of adhesions with evacuation of ascites. DESCRIPTION OF PROCEDURE The patient was positioned in supine position. After being anesthetized and intubated, he was prepped and draped in routine fashion for exploration through midline incision. An incision was made approximately 3 to 4 inches above the umbilicus down to the left and 2 to 3 inches below the umbilicus, this was carried down through subcutaneous tissue through the linea alba to the peritoneal cavity. Upon opening the peritoneal cavity, there was a moderate amount of ascitic fluid. The remainder of incision was opened with the cutting edge of the Bovie cautery. Intra-abdominal exploration was carried out after multiple adhesions were lysed of the omentum to the anterior abdominal wall. A 1500 mL of ascitic fluid were removed. The liver was checked and was not obviously externally cirrhotic. There appeared to be some chronic inflammation of the gallbladder, but no stones palpable. There was no evidence of any portal hypertension. The entire small bowel was freed up with multiple Unit #: [id number] #: [id number] Patient: JAVI RODRIGUEZ adhesions being taken free with Metzenbaum scissors. There was a transitional point in the mid jejunum to the proximal ileum. After the entire small bowel was run and there were no additional adhesions to release, the small bowel was milked with a large amount of fluid within it, being milked up into the stomach, and after hemostasis was noted, the midline was closed with interrupted #1 Vicryl sutures. Subcutaneous tissue closed with continuous 2-0 Vicryl stitch, and skin edges approximated with stainless-steel skin clips, skin stapling device. Sterile dressings were applied externally. Estimated blood loss was less than 50 mL. The patient received less than 2000 mL crystalloid solution during the procedure. Sponge and instrument counts were correct x3. No drains were used. No complications. The patient was taken to the recovery room with stable vital signs and in satisfactory condition. Dictated by... Mann Newton Jr., M.D. JMB/rocky TD: 05/16/2017 11:29 JOB #: [id number] CC: Mann Newton Jr., M.D. Rajan R. Amin, M.D. OPERATIVE REPORT Page 1 of 1 X Mann Newton MD PROCEDURE OPERATIVE NOTE
--- NOTE | ~2017-05-14 | CR7 ---
[facility] A Service of [facility] RADIOLOGY TEXT RESULTS PATIENT: JAVI RODRIGUEZ LOCATION: C2 : 58 UNIT #: [id number] AGE: [address]: ROBERT MORROW MD SEX: M ORDER DR: [id number] [facility] [address] [facility]. [place], [place] [address] [id number] MR#: [id number] Acc #: [id number] NAME: JAVI RODRIGUEZ. : 1960 SEX: M STUDY DATE/TIME: 05/15/2017 23:02 UNIT: C5B ROOM: [facility] STUDY DESCRIPTION: CR Abdomen Single AP View Attending Physician: Robert Morrow M.D. Referring Physician: Mazin Mclean M.D. Ordering Physician: Ed Everardo Johnson M.D. Primary Care Physician: Noe Alexandre M.D. MEDICAL IMAGING REPORT This report is preliminary unless electronic signature is present EXAMINATION AP abdomen. DATE 05/15/2017 at 23:02. HISTORY Nausea, vomiting, abdominal pain and fecal emesis. Symptoms began 3 days ago. COMPARISON AP abdomen 05/15/2017 at 15:58, and CT abdomen and pelvis 05/14/2017 at 14:32. FINDINGS Abnormally dilated and stacked small bowel loops are present in keeping with the appearance of small bowel obstruction. The findings appear similar to the study performed a few hours earlier today. NG tube remains in the region of the distal gastric body and the CBD stent is in place. Amorphous calcifications left upper quadrant are in keeping with appearance of chronic calcific pancreatitis. No gross free intraperitoneal air is identified on the supine exam. No pneumatosis is seen. IMPRESSION Plain film findings consistent with high-grade small bowel obstruction without appreciable change compared to earlier today. Dictated by... Mae West M.D. [facility] A Service of [facility] RADIOLOGY TEXT RESULTS PATIENT: JAVI RODRIGUEZ LOCATION: C2A : 58 UNIT #: [id number] AGE: [address]: ROBERT MORROW MD SEX: M ORDER DR: THIS IS AN ELECTRONICALLY VERIFIED REPORT Mae West M.D. at 05/16/2017 9:40 PM JOSE/angela TD: 05/16/2017 16:09 JOB #: [id number] MEDICAL IMAGING REPORT Page 1 of 1 COPY
--- NOTE | ~2017-05-14 | FU ---
[facility] Nutrition Therapy DATE: 05/19/17 Patient: JAVI RODRIGUEZ Physician: LASHANDA Address: [address] [place] [address] Room/Bed: [address] [place] [address], Zip: [place] [address] Admit Date: 05/14/17 Date of : 58 Height: 5 9 Weight: 123 56 NUTRITION MONITORING/FOLLOW-UP: Reason: PT SEEN FOR FOLLOW-UP/TPN DAY 3 DX: HIGH GRADE SBO PER CT SCAN 2' ADHESIONS Anthropometrics: 5'9", WT: 123# (55.9 KG), BMI: 18.2 (WEIGHT ON 05/16/17) Labs: GLU: 154, BUN: 6, CREAT: 0.4, CA+:7.8, ALB: 1.9, ALT: 7, NA+:130, PHOS: 2.2, PRE-ALB: 8.4 Meds: TPN, LIPIDS, KCL, ZOFRAN, PHENERGAN, NACL I&O's: 5170/2825 Skin: PUNCTURE PROCEDURE SITE (R) ABDOMEN, TRACH SITE NOTED, NO EDEMA (PREVIOUSLY NOTED) Estimated Nutrition Needs: 3291-0695 KCAL 67-84 G PRO Assessment: CHART REVIEWED AND EVENTS NOTED. PT SEEN FOR TPN FOLLOW-UP. PT POD #3 EXLAP WITH EXTENSIVE LYSIS OF ADHESIONS AND EVACUATION OF ASCITES. PT RECEIVING TPN DAY 3. TPN 25% DEXTROSE, 5% AA @ 80 ML/HR + 20% 250 ML LIPIDS q 72 HOURS. LSA RECOMMENED GOAL RATE OF 80 ML/HR, PER CHART NOTES. PT REPORTS ABD PAIN POST-PROCEDURE, NOTING NO BOWEL MOVEMENT PAST FEW DAYS. PT ALSO RECEIVING FULL LIQUID DIET TRAY-RD OBSERVED PT ATE 100% PUDDING AND BITES OF OATMEAL. THIS RD ENCOURAGED SLOW GRADUAL PO INTAKE + SUPPLEMENT INTAKE, PT AGREED TO ENSURE SHAKES BID (PT REQUESTED ENSURE ENLIVE VS. ENSURE CLEAR). PT REPORTED NO DIET QUESTIONS AT THIS TIME. RD TO CONTINUE TO FOLLOW/REMAIN AVAILABLE. -TPN @ 80 ML/HR PROVIDES 96 G PRO, 1632 DEXTROSE KCAL, 2016 TOTAL (RECEIVING 2516 KCAL ON LIPID DAYS) (GIR: 6.0) EXCEEDS PT'S GIR RATE AND OVERFEEDING PT ON LIPID DAYS/INCREASED PROTEIN) Dx: INADEQUATE PROTEIN-ENERGY INTAKE R/T CLINICAL CONDITION, NUTRITION NOT YET INITIATED AEB NPO X 3 DAYS, POSSIBLE NEED FOR NUTRITION SUPPORT.-RESOLVED/ACTIVE NEW Dx: INADEQUATE PROTEIN-ENERGY INTAKE R/T CLINICAL CONDITION AEB PT RECEIVING TPN. Intervention: 1. TPN 2. FULL LIQUID DIET 3. ENSURE SHAKES BID Monitoring, Evaluation and Goals: 1. TOLERATING OF ORAL DIET ADVANCEMENT VS. NUTRITION SUPPORT CONSISTENT W/ESTIMATED NUTRITIONAL NEEDS-IN PROGRESS/MET 2. LYTES WNL-NOT MET/IN PROGRESS [facility] Nutrition Therapy DATE: 05/19/17 Patient: JAVI RODRIGUEZ Physician: LASHANDA Address: [address] [place] [address] Room/Bed: [address] [place] [address], Zip: [place] [address] Admit Date: 05/14/17 Date of : 58 Height: 5 9 Weight: 123 56 3. GRADUAL WEIGHT GAIN TOWARDS HEALTHY BMI RANGE-NOT MET (WEIGHT HAS NOT BEEN UPDATED SINCE 05/16) 4. PROMOTE REGULAR BMs-NOT MET (NO BM) NEW GOALS IN ADDITION TO ABOVE: 1. NUTRITION SUPPORT; PROVIDE >80% ESTIMATED NUTRIENT NUTRIENT NEEDS W/NO C/O N/V/D 2. ORAL INTAKE; ADVANCE DIET AND CONSUME/TOLERATE >50% OF MEALS AND SUPPLEMENTS MONITOR: -TPN RATE/TOLERANCE -DIET ADVANCEMENT/PO INTAKE/APPETITE -WEIGHTS -SUPPLEMENT INTAKE -LABS Recommendations: 1. PLEASE PROVIDE UPDATED WEIGHT 2. PLEASE ORDER STRAWBERRY ENSURE ENLIVE SHAKES BID (PER PT REQUEST) FOR ADDITIONAL PROTEIN AND KCAL 3. ONCE MEDICALLY FEASIBLE, ADVANCE DIET TOLERATED TO 2 GM NA/LOW FAT DIET, IF PT HAS CONSISTENTLY GOOD PO INTAKE 4. RECOMMEND TO DECREASE RATE OF CURRENT TPN 25% DEXTROSE, 5% AA TO GOAL RATE OF 60 ML/HR. CONTINUE TO CYCLE LIPIDS q 72 HOURS (20% 250 ML LIPIDS). -PROVIDES 72 G PRO, 1224 NON-PROTEIN (DEXTROSE) KCAL, 1512 TOTAL KCAL, 500 EXTRA KCAL ON LIPID DAYS (TOTAL 2011 ON LIPID DAYS) (GIR: 4.5) 5. CONTINUE TO MONITOR GLUCOSE AND TRIGLYCERIDE LEVELS. PLEASE REPLETE LYTES TO WNL PRN (PHOS L0W). PT AT RISK FOR REFEEDING SYNDROME GIVEN UNDERWEIGHT STATUS AND DAILY ETOH ABUSE RD WILL F/U PER PROTOCOL PT IS MOD/SEVERELY COMPROMISED Respectfully, TERESA NOVA MS, RD, LD [facility] Nutritional Services [facility] Nutrition Therapy DATE: 05/19/17 Patient: JAVI RODRIGUEZ Physician: LASHANDA Address: [address] [place] [address] Room/Bed: [address] [place] [address], Zip: [place] [address] Admit Date: 05/14/17 Date of : 58 Height: 5 9 Weight: 123 56 [facility] cc: client file
--- NOTE | ~2017-05-14 | CR7 ---
[facility] A Service of [facility] RADIOLOGY TEXT RESULTS PATIENT: JAVI RODRIGUEZ LOCATION: [facility] : 58 UNIT #: [id number] AGE: [address]: ROBERT MORROW MD SEX: M ORDER DR: [id number] [facility] [address] [facility]. [place], [place] [address] [id number] I MR#: [id number] Acc #: [id number] NAME: JAVI RODRIGUEZ. : 1960 SEX: M STUDY DATE/TIME: 05/15/2017 15:58 UNIT: [facility] ROOM: [facility] STUDY DESCRIPTION: CR Abdomen Single AP View Attending Physician: Robert Morrow M.D. Ordering Physician: Robin Johnson M.D. Primary Care Physician: Noe Alexandre M.D. MEDICAL IMAGING REPORT This report is preliminary unless electronic signature is present EXAM Frontal abdomen 05/15/2017. INDICATIONS Fecal emesis, nausea vomiting, abdominal pain, symptoms 3 days. TECHNIQUE Frontal abdomen. COMPARISON Compared with 05/14/2017. FINDINGS Common bile duct stent and enteric tube remain present. There is dilatation of small bowel, similar to the prior study. Colonic gas present. No new mass effect. Calcifications in the upper abdomen most characteristic of chronic pancreatitis. IMPRESSION 1. Imaging findings most characteristic of a small bowel obstruction. Findings are similar to the prior study. Evidence of underlying chronic calcific pancreatitis. Dictated by... Wicho Fuentes M.D. THIS IS AN ELECTRONICALLY VERIFIED REPORT Wicho Fuentes M.D. at 05/16/2017 2:23 PM JLY/gz TD: 05/16/2017 10:44 JOB #: [id number] [facility] A Service [facility] RADIOLOGY TEXT RESULTS PATIENT: JAVI RODRIGUEZ LOCATION: [facility] : 58 UNIT #: [id number] AGE: [address]: ROBERT MORROW MD SEX: M ORDER DR: MEDICAL IMAGING REPORT Page 1 of 1 COPY
--- NOTE | ~2017-05-14 | A ---
[facility] Nutrition Therapy DATE: 05/17/17 Patient: JAVI RODRIGUEZ Physician: LASHANDA Address: [address] [place] [address] Room/Bed: [address] [place] [address], Zip: [place] [address] Admit Date: 05/14/17 Date of : 58 Height: 5 9 Weight: 123 56 NUTRITIONAL ASSESSMENT: REASON: Low BMI Admitting dx: 57 y/o admitted with high grade SBO per CT scan 2' adhesions PMH: Pancreatitis, daily ETOH abuse, 1 ppd smoker, cirrhosis, SBO, HTN, COPD Anthropometrics: Ht: 69", Wt: 55.9 kg, BMI: 18.2 (underweight) Labs: 05/16: Na 133, K+ 3.2, glucose 113, Mg 1.4 (05/15) Meds: D5 1/2 NS @ 150 ml/hr, pain meds prn, phenergan/zofran prn, kcl, mgso4 I/O & Bowel function: Last BM 05/14, NGT to LWS Skin Integrity: Puncture procedure site R abdomen, trach site noted, no edema Estimated Nutrition Needs: 5129-2979 kcals/day (30-35 kcals/kg) 67-84 g protein/day (1.2-1.5 g/kg) Fluids consistent with kcal needs or per MD Assessment: Chart reviewed, events noted. Patient admitted to this facility for pancreatitis with prolonged hospital stay last month, was then transferred to [facility] rehab and D/C home. He presented this admission with N/V/abdominal pain x 48-72 hours and was found to have high grade SBO on CT scan. RD previously assessed on 03/25/17 with multiple follow-ups made; notes reviewed. Pt scored 0 points on the malnutrition risk score however his documented weight from last admission shows a possible 5 lb weight loss in approx. 6 weeks (3.9% loss; mild). He also had a trach placed last admission, was scheduled for a PEG which he did not receive due to abdominal distension and his oral diet was able to be advanced to slick per TRUCK BENCH MECHANIC at the end of his hospital course. Although he did have problems tolerating EN last admission, TPN was discussed but never started and his tolerance of EN improved. He is clinically underweight. He is NPO with an NGT to LWS, POD #1 exlap with extensive lysis of adhesions and evacuation of ascites. See RD recs below, will follow hospital course closely. Dx: Inadequate energy intake r/t clinical condition, nutrition not yet initiated AEB NPO x 3 days, possible need for nutrition support. Intervention: Diet vs nutrition support [facility] Nutrition Therapy DATE: 05/17/17 Patient: JAVI RODRIGUEZ Physician: LASHANDA Address: [address] [place] [address] Room/Bed: [address] [place] [address], Zip: [place] [address] Admit Date: 05/14/17 Date of : 58 Height: 5 9 Weight: 123 56 Monitoring, Evaluation and Goals: 1. Tolerance of oral diet advancement vs nutrition support consistent with estimated nutritional needs. 2. Lytes WNL. 3. Gradual weight gain towards a healthy BMI range. 4. Promote regular BM's. Monitor: per protocol, criteria to determine if above goals met Recommendations: 1. Once NGT is discontinued and post-op bowel function returns suggest TR[employer] BENCH MECHANIC eval. Suggest starting with clear liquids and advancing to regular diet as tolerated. If patient has consistently good PO intakes may add 2g sodium restriction due to cirrhosis. Once oral diet is advanced pt may benefit from Ensure clear TID to provide extra kcals/protein. Of note, the patient required a slick/dental soft diet with NTL last admission. 2. If oral diet is unable to be advanced within 48 hours suggest initiating enteral nutrition with Vital 1.5 @ 20 ml/hr. If tolerated, increase by 10 ml q 8 hours until goal rate of 50 ml/hr is reached, to provide 1800 kcals, 81 g protein and 912 ml water. Free water flushes per MD once at goal rate. 3. If unable to advance to oral diet and enteral nutrition is not tolerated @ goal within 7 days of admission date (admitted 05/14) suggest initiating TPN with standard formula 25% dextrose, 5% amino acids @ 20 ml/hr. Increase by 10 ml q 8 hours until goal rate of 60 ml/hr is reached. Cycle 20% 250 ml lipids q 72 hours (do not need to hold IV lipids due to hx of pancreatitis as they do not stimulate the pancreas) as long as triglycerides are < 400 mg/dL. This TPN regimen will provide: -1224 dextrose kcals (GIR = 4.5) -72 g protein (1.3 g/kg) -1512 total kcals -500 extra kcals on lipid days (total 2012 kcals on lipid days) *If nutrition support starts monitor glucose and triglycerides and replete lytes to WNL prn. Pt is at risk for refeeding syndrome given underweight status and daily ETOH use. RD will follow hospital course Moderate-severe nutrition risk Respectfully, [facility] Nutrition Therapy DATE: 05/17/17 Patient: JAVI RODRIGUEZ Physician: LASHANDA Address: [address] [place] [address] Room/Bed: [address] [place] [address], Zip: [place] [address] Admit Date: 05/14/17 Date of : 58 Height: 5 9 Weight: 123 56 Jesika Guerrero, PRAFUL, LD [facility] and Nutritional [facility] cc: client file
--- NOTE | ~2017-05-14 | DS ---
Unit #: [id number] #: [id number] Patient: JAVI RODRIGUEZ [id number] [address] [place], [place] [address] [id number] I MR#: [id number] NAME: JAVI RODRIGUEZ. ROOM: 220 Age: 57 Sex: M Admission Date: 05/14/2017 : 1960 Discharge Date: 05/22/2017 Attending Physician: Milagros Palumbo M.D. Primary Care Physician: Noe Alexandre M.D. DISCHARGE SUMMARY REASON FOR ADMISSION Abdominal pain. HISTORY OF PRESENT ILLNESS/HOSPITAL COURSE The patient is a 57-year-old male with prior history of alcohol abuse, cirrhosis, portal vein thrombosis, hypertension and COPD who presented secondary to abdominal pain. He underwent a CT of abdomen and pelvis, which showed a high-grade small bowel obstruction. Initially he was placed on NG to wall suction. As well, conservative management was initiated. Consultation was also placed to [facility] for further evaluation. Unfortunately, his pain did worsen, and he was taken to the O.R. on May 16, 2017 by [facility]. The patient underwent exploratory laparotomy and lyses of adhesions. There was a large amount of ascitic fluid also noted within the abdomen. Postoperatively he, otherwise, did well. He was gradually transitioned off NG tube. As well, he was transitioned from clears to a regular diet, which he has tolerated well. He has had successful bowel function. He has been cleared from [facility] for discharge home. At time of discharge the patient's hemoglobin is 9.2. His electrolytes are within normal limits. It should be noted that the patient's prealbumin level is 7.1. He likely suffers from severe malnutrition secondary to chronic alcohol abuse. The patient will follow up with [facility] in 7-10 days. Overall, his prognosis at this point is guarded secondary to his ongoing alcohol abuse, and it was reinforced with him on numerous occasions about the importance of stopping. FINAL DISCHARGE DIAGNOSES 1. High-grade small bowel obstruction. 2. Status post exploratory laparotomy with lyses of adhesions. 3. Chronic alcohol abuse. 4. Chronic pancreatitis. 5. Recent hospital admission secondary to hypovolemic/septic shock. 6. Cirrhosis. 7. Tobacco abuse. 8. Poor nutritional status secondary to chronic alcohol abuse. 9. Chronic anemia. Baseline hemoglobin around 8 to 9. Unit #: [id number] #: [id number] Patient: JAVI RODRIGUEZ FINAL DISCHARGE MEDICATIONS 1. DuoNeb aerosol solution q.6 scheduled. 2. Albuterol 1-2 puffs q.6 p.r.n. 3. Simethicone 1 tablet p.o. q.6 p.r.n. 4. Linzess 145 mcg p.o. daily. 5. Aldactone 25 mg p.o. b.i.d. 6. Protonix 40 mg p.o. b.i.d. 7. Lortab 7.5/325 mg 1 tablet p.o. q.4 p.r.n. DISCHARGE CONDITION Stable. DISCHARGE DISPOSITION Home. FOLLOWUP Follow up with [facility] on May 26, 2017 for staple removal, as well as wound recheck. Dictated by... Alex James/renee TD: 05/24/2017 10:14 JOB #: [id number] DISCHARGE SUMMARY Page 1 of 1 X Milagros Palumbo MD X DISCHARGE SUMMARY
--- NOTE | ~2017-05-14 | FU ---
[facility] Nutrition Therapy DATE: 05/21/17 Patient: JAVI RODRIGUEZ Physician: LASHANDA Address: [address] [place] [address] Room/Bed: [address] [place] [address], Zip: [place] [address] Admit Date: 05/14/17 Date of : 58 Height: 5 9 Weight: 120 54.8 NUTRITION MONITORING/FOLLOW-UP: Reason: PT SEEN FOR FOLLOW-UP (TPN HAS BEEN D/C'D ON DAY 5) DX: HIGH GRADE SBO Anthropometrics: 5'9", WT: 120# (55 KG), BMI: 17.7 -ADMIT WEIGHT: 123# Labs: GLU: 148, NA+:133, CREAT: 0.4, CA+:8.3, ALB: 1.9, ALT: 7, PRE-ALB: 7.1 Meds: ZOFRAN, PHENERGAN, KCL I&O's: 3530/1255, 1 BM NOTED Skin: PREVIOUSLY NOTED Estimated Nutrition Needs: 1610-3294 KCAL 67-84 G PRO Assessment: CHART REVIEWED AND EVENTS NOTED. PT SEEN FOR FOLLOW-UP. TPN D/C'D AFTER LAST BAG TODAY. PT RECEIVING 2 GM NA DIET, NOTES FEELING NAUSEOUS, UPSET STOMACH AT TIME OF VISIT. PT HAD LUNCH TRAY AT BEDSIDE-NOTED PT ATE ~90%. THIS RD ENCOURAGED SLOW GRADUAL PO INTAKE + SMALL FREQUENT MEALS + SUPPLEMENT INTAKE, PT AGREED TO ENSURE CLEAR BID. PT DOES NOT LIKE ENSURE ENLIVE SHAKES. PT HAD QUESTIONS ABOUT SNACK OPTIONS, RD PROVIDED. RD TO CONTINUE TO FOLLOW. PLANS IN PLACE FOR POSSIBLE D/C THIS WEEKEND. Dx: INADEQUATE PROTEIN-ENERGY INTAKE R/T CLINICAL CONDITION AEB PT RECEIVING TPN.-RESOLVED NEW Dx: INADEQUATE NUTRIENT INTAKE R/T CURRENT CLINICAL CONDITION AEB PT REPORT ABOVE, LOW BMI NOTED. Intervention: 1. 2 GM NA DIET 2. D/C ENSURE SHAKES 3. ENSURE CLEAR BID Monitoring, Evaluation and Goals: 1. TOLERATING OF ORAL DIET ADVANCEMENT VS. NUTRITION SUPPORT CONSISTANT W/ESTIMATED NUTRITIONAL NEEDS-IN PROGRESS 2. LYTES WNL-MET/IN PROGRESS 3. GRADUAL WEIGHT GAIN TOWARDS HEALTHY BMI RANGE-NOT MET 4. PROMOTE REGULAR BMs-IN PROGRESS MONITOR: -PO INTAKE/APPETITE [facility] Therapy DATE: 05/21/17 Patient: JAVI RODRIGUEZ Physician: LASHANDA Address: [address] [place] [address] Room/Bed: [address] [place] [address], Zip: [place] [address] Admit Date: 05/14/17 Date of : 58 Height: 5 9 Weight: 120 54.8 -WEIGHTS -SUPPLEMENT INTAKE Recommendations: 1. PLEASE D/C STRAW ENSURE SHAKES BID W/MEALS. ORDER MIXED DUNBAR ENSURE CLEAR BID W/MEALS PER PT REQUEST 2. APPRECIATE FAMILY AND STAFF TO ENCOURAGE ADEQUATE PO INTAKE. IF PO INTAKE <50%, CHANGE CURRENT DIET ORDER TO REGULAR 3. ADD 6 SMALL MEALS TO CURRENT DIET ORDER TO BETTER FACILITATE PO INTAKE RD WILL F/U PER PROTOCOL PT IS MODERATELY COMPROMISED Respectfully, TERESA NOVA MS, RD, LD Food and Nutritional Services [facility] cc: client file
--- NOTE | ~2017-05-14 | CO ---
Unit #: [id number] #: [id number] Patient: JAVI RODRIGUEZ [id number] [address] [place], [place] [address] [id number] I MR#: [id number] NAME: JAVI RODRIGUEZ. ROOM: 85000 Age: 57 Sex: M Admission Date: 05/14/2017 : 1960 Attending Physician: Shawanda Morrow M.D. Primary Care Physician: Noe Alexandre M.D. Consultation Date: 05/15/2017 CONSULTATION REPORT BRIEF HISTORY The patient is a 57-year-old gentleman, who presents with nausea, vomiting, decreased bowel movements, and abdominal distention over the last 24 to 48 hours. No history of similar type pain. He described his pain as diffuse, nonradiating, crampy in characteristics. PAST MEDICAL HISTORY He has had no abdominal operations. He does have a history of pancreatitis. SOCIAL HISTORY He does smoke a pack per day. Daily drinker. FAMILY HISTORY Negative for GI malignancy. MEDICATIONS He is on no current medications. REVIEW OF SYSTEMS Cardiopulmonary complaints at this time. Else, 10 systems were reviewed and negative. PHYSICAL EXAMINATION GENERAL: He is awake and alert. No distress. Appears somewhat cachectic. He is currently afebrile. HEENT: Unremarkable. NECK: Supple. No JVD. Trachea midline. LUNGS: Clear to auscultation. Bilateral breath sounds symmetric. CARDIOVASCULAR: Regular rate and rhythm. ABDOMEN: His abdomen is distended. There are no hernias, no rebound, no masses. EXTREMITIES: No clubbing, cyanosis, or edema. DIAGNOSTIC STUDIES LABORATORY RESULTS: Show a white count of 15 and hemoglobin 13. Chemistries are normal. Lactic acid is normal. IMAGING STUDIES: CT scan shows high-grade small bowel obstruction with transition point in the right lower quadrant. ASSESSMENT Small bowel obstruction. Unit #: [id number] #: [id number] Patient: JAVI RODRIGUEZ PLAN Recommend to hydrate, we will reassess, likely operative intervention. Dictated by... Robin Johnson M.D. JAMEEL/rocky TD: 05/15/2017 07:23 JOB #: [id number] CONSULTATION REPORT Page 1 of 1 X Robin Johnson MD CONSULTATION REPORT
[2017-05-14] MEDS ORDERED: PROTONIX PO (12:26)
[2017-05-14] MEDS ORDERED: PATIENT'S PHARMACY (12:26)
[2017-05-14] MEDS ORDERED: GAS RELIEF 8080 M1 PO (12:26)
[2017-05-14] MEDS ORDERED: LINZESS145 MCG PO (12:26)
[2017-05-14] MEDS ORDERED: ALDACTONE PO (12:26)
[2017-05-14] MEDS ORDERED: SEROQUEL PO (12:26)
[2017-05-14] MEDS ORDERED: ALBUTEROL17 GM INH (12:27)
[2017-05-14] MEDS ORDERED: IPRATR-ALBUTEROL3 ML NEB (12:27)
[2017-05-14] MEDS ORDERED: LORTAB 5-325 M1 EACH PO (12:27)
[2017-05-14 13:14] LABS: BASOPHIL# 0.1 X10e3 (0-0.3); BASOPHIL% 0.4 % (0-2.5); EOSINOPHIL% 0.1 % (0.0-7.0); HEMATOCRIT 39.5 % (38.0-50.0); HEMOGLOBIN 13.3 gm/dL (13.0-16.0); LYMPHOCYTE# 1.5 X10e3 (1.0-3.5); LYMPHOCYTE% 9.8 % (17.0-45.0); MEAN CELL VOLUME 89.3 FL (83-96); MEAN CORPUSCULAR HEMOGLOBIN 30.1 PG (28-34); MEAN CORPUSCULAR HGB CONC 33.7 g/dL (30-36); MEAN PLATELET VOLUME 7.9 FL (6.5-11.5); MONOCYTE# 0.9 X10e3 (0-1.0); MONOCYTE% 6.3 % (3.0-12.0); NEUTROPHIL# 12.6 X10e3 (1.5-7.1); NEUTROPHIL% 83.4 % (40-75); PLATELET COUNT 424 X10e3 (140-420); RED BLOOD COUNT 4.42 X10e (3.90-5.60); RED CELL DISTRIBUTION WIDTH 18.4 % (11.0-15.5); WHITE BLOOD COUNT 15.1 X10e3 (4.0-10.5)
[2017-05-14 13:20] LABS: DIFF IND YES
[2017-05-14 13:38] LABS: ALBUMIN SERUM 2.8 g/dL (3.5-5.0); BILIRUBIN, DIRECT 0.1 mg/dL (0.0-0.2); BILIRUBIN,INDIRECT 0.5 mg/dL (0.0-0.9); BILIRUBIN,TOTAL 0.6 mg/dL (0.2-2.0); BUN/CREATININE RATIO 13.75; CALCIUM SERUM 8.8 mg/dL (8.4-10.2); CREATININE SERUM 1.6 mg/dL (0.6-1.4); GLOM FILT RATE Estimated 46.8 mL/min (>60); POTASSIUM 3.2 mmol/L (3.5-5.1); PROTEIN TOTAL SERUM 8.6 g/dL (6.0-8.3)
[2017-05-14 13:39] LABS: PLATELET ESTIMATE INCREASED (NORMAL)
[2017-05-14 14:16] LABS: URINE SOURCE CLEAN CATCH
[2017-05-14 14:23] LABS: URINE APPEARANCE CLEAR; URINE BLOOD NEG (NEG); URINE COLOR DK YELLOW; URINE GLUCOSE NEG (NEG); URINE KETONE TRACE (NEG); URINE LEUKOCYTE ESTERASE TRACE (NEG); URINE NITRATE NEG (NEG); URINE PROTEIN TRACE (NEG); URINE SPECIFIC GRAVITY 1.024 (1.003-1.035)
[2017-05-14 14:24] LABS: URINE BACTERIA AUWI NEG (NEGATIVE); URINE SQUAMOUS EPITHELIAL CELL OCC /[HPF]
[2017-05-14 14:28] LABS: URINE BILIRUBIN NEG (NEG)
[2017-05-14 14:34] LABS: CULTURE INDICATED? NO
[2017-05-15 09:16] LABS: BASOPHIL% 0.3 % (0-2.5); EOSINOPHIL% 0.4 % (0.0-7.0); HEMATOCRIT 34.9 % (38.0-50.0); HEMOGLOBIN 11.6 gm/dL (13.0-16.0); LYMPHOCYTE# 1.2 X10e3 (1.0-3.5); LYMPHOCYTE% 13.9 % (17.0-45.0); MEAN CELL VOLUME 89.5 FL (83-96); MEAN CORPUSCULAR HEMOGLOBIN 29.6 PG (28-34); MEAN CORPUSCULAR HGB CONC 33.1 g/dL (30-36); MEAN PLATELET VOLUME 7.8 FL (6.5-11.5); MONOCYTE# 0.7 X10e3 (0-1.0); NEUTROPHIL% 77.4 % (40-75); PLATELET COUNT 306 X10e3 (140-420)
[2017-05-15 09:19] LABS: DIFF IND NO
[2017-05-15 09:55] LABS: BUN/CREATININE RATIO 21.53; CALCIUM SERUM 7.9 mg/dL (8.4-10.2); CREATININE SERUM 1.3 mg/dL (0.6-1.4); GLOM FILT RATE Estimated 60.2 mL/min (>60); MAGNESIUM 1.6 mg/dL (1.6-3.0); POTASSIUM 3.4 mmol/L (3.5-5.1)
[2017-05-15 18:07] LABS: ALBUMIN SERUM 2.1 g/dL (3.5-5.0); BILIRUBIN,TOTAL 0.6 mg/dL (0.2-2.0); BUN/CREATININE RATIO 20.9; CALCIUM SERUM 7.7 mg/dL (8.4-10.2); CREATININE SERUM 1.1 mg/dL (0.6-1.4); GLOM FILT RATE Estimated 73.6 mL/min (>60); MAGNESIUM 1.4 mg/dL (1.6-3.0); POTASSIUM 3.4 mmol/L (3.5-5.1); PROTEIN TOTAL SERUM 6.3 g/dL (6.0-8.3)
[2017-05-16 05:30] LABS: HEMOGLOBIN 9.8 gm/dL (13.0-16.0); MEAN CELL VOLUME 89.7 FL (83-96); MEAN CORPUSCULAR HEMOGLOBIN 30.3 PG (28-34); MEAN CORPUSCULAR HGB CONC 33.7 g/dL (30-36); MEAN PLATELET VOLUME 7.9 FL (6.5-11.5); RED BLOOD COUNT 3.23 X10e (3.90-5.60); RED CELL DISTRIBUTION WIDTH 17.5 % (11.0-15.5); WHITE BLOOD COUNT 5.7 X10e3 (4.0-10.5)
[2017-05-16 06:45] LABS: BUN/CREATININE RATIO 26.66; CALCIUM SERUM 7.7 mg/dL (8.4-10.2); CREATININE SERUM 0.6 mg/dL (0.6-1.4); GLOM FILT RATE Estimated 110.9 mL/min (>60); POTASSIUM 3.2 mmol/L (3.5-5.1)
[2017-05-17 08:24] LABS: HEMATOCRIT 32.5 % (38.0-50.0); HEMOGLOBIN 10.8 gm/dL (13.0-16.0); MEAN CELL VOLUME 89.9 FL (83-96); MEAN CORPUSCULAR HEMOGLOBIN 29.9 PG (28-34); MEAN CORPUSCULAR HGB CONC 33.3 g/dL (30-36); MEAN PLATELET VOLUME 7.4 FL (6.5-11.5); RED BLOOD COUNT 3.62 X10e (3.90-5.60); RED CELL DISTRIBUTION WIDTH 17.3 % (11.0-15.5); WHITE BLOOD COUNT 7.5 X10e3 (4.0-10.5)
[2017-05-17 09:21] LABS: BILIRUBIN,TOTAL 0.7 mg/dL (0.2-2.0); CALCIUM SERUM 8.2 mg/dL (8.4-10.2); CREATININE SERUM 0.6 mg/dL (0.6-1.4); GLOM FILT RATE Estimated 110.9 mL/min (>60); MAGNESIUM 1.5 mg/dL (1.6-3.0); POTASSIUM 4.2 mmol/L (3.5-5.1)
[2017-05-18 05:23] LABS: HEMATOCRIT 31.3 % (38.0-50.0); HEMOGLOBIN 10.2 gm/dL (13.0-16.0); MEAN CELL VOLUME 90.6 FL (83-96); MEAN CORPUSCULAR HEMOGLOBIN 29.5 PG (28-34); MEAN CORPUSCULAR HGB CONC 32.6 g/dL (30-36); RED BLOOD COUNT 3.45 X10e (3.90-5.60); RED CELL DISTRIBUTION WIDTH 17.2 % (11.0-15.5); WHITE BLOOD COUNT 6.9 X10e3 (4.0-10.5)
[2017-05-18 07:09] LABS: ALBUMIN SERUM 1.9 g/dL (3.5-5.0); ALKALINE PHOSPHATASE 54 U/L (32-92); ALT (SGPT) 7 U/L (10-40); AST (SGOT) 16 U/L (10-42); BILIRUBIN,TOTAL 0.2 mg/dL (0.2-2.0); CALCIUM SERUM 7.9 mg/dL (8.4-10.2); CARBON DIOXIDE 27 mmol/L (22-31); CHLORIDE 98 mmol/L (100-111); CREATININE SERUM 0.5 mg/dL (0.6-1.4); GLOM FILT RATE Estimated 119.5 mL/min (>60); GLUCOSE FASTING 131 mg/dL (70-110); MAGNESIUM 1.7 mg/dL (1.6-3.0); PHOSPHOROUS 2.2 mg/dL (2.5-4.6); PREALBUMIN 8.4 mg/dL (17.0-42.0); PROTEIN TOTAL SERUM 5.7 g/dL (6.0-8.3); SODIUM 130 mmol/L (135-145); TRIGLYCERIDES 61 mg/dL (10-160)
[2017-05-18 07:11] LABS: BLOOD UREA NITROGEN <5 mg/dL (9-23)
[2017-05-19 06:16] LABS: HEMATOCRIT 29.9 % (38.0-50.0); HEMOGLOBIN 9.8 gm/dL (13.0-16.0); MEAN CELL VOLUME 90.5 FL (83-96); MEAN CORPUSCULAR HEMOGLOBIN 29.6 PG (28-34); MEAN CORPUSCULAR HGB CONC 32.7 g/dL (30-36); MEAN PLATELET VOLUME 8.2 FL (6.5-11.5); RED BLOOD COUNT 3.3 X10e (3.90-5.60); RED CELL DISTRIBUTION WIDTH 16.8 % (11.0-15.5); WHITE BLOOD COUNT 7.6 X10e3 (4.0-10.5)
[2017-05-19 06:58] LABS: CALCIUM SERUM 7.8 mg/dL (8.4-10.2); CREATININE SERUM 0.4 mg/dL (0.6-1.4); POTASSIUM 4.2 mmol/L (3.5-5.1)
[2017-05-20 06:20] LABS: ALBUMIN SERUM 1.7 g/dL (3.5-5.0); BILIRUBIN,TOTAL 0.2 mg/dL (0.2-2.0); BUN/CREATININE RATIO 27.5; CREATININE SERUM 0.4 mg/dL (0.6-1.4); MAGNESIUM 1.6 mg/dL (1.6-3.0); POTASSIUM 4.3 mmol/L (3.5-5.1); PROTEIN TOTAL SERUM 5.8 g/dL (6.0-8.3)
[2017-05-20 06:34] LABS: HEMATOCRIT 29.5 % (38.0-50.0); HEMOGLOBIN 9.5 gm/dL (13.0-16.0); MEAN CELL VOLUME 90.1 FL (83-96); MEAN CORPUSCULAR HEMOGLOBIN 29.1 PG (28-34); MEAN CORPUSCULAR HGB CONC 32.3 g/dL (30-36); MEAN PLATELET VOLUME 8.4 FL (6.5-11.5); RED BLOOD COUNT 3.27 X10e (3.90-5.60); RED CELL DISTRIBUTION WIDTH 16.9 % (11.0-15.5); WHITE BLOOD COUNT 8.2 X10e3 (4.0-10.5)
[2017-05-21 05:54] LABS: HEMATOCRIT 27.3 % (38.0-50.0); HEMOGLOBIN 9.2 gm/dL (13.0-16.0); MEAN CELL VOLUME 89.6 FL (83-96); MEAN CORPUSCULAR HGB CONC 33.5 g/dL (30-36); MEAN PLATELET VOLUME 7.7 FL (6.5-11.5); RED BLOOD COUNT 3.05 X10e (3.90-5.60); RED CELL DISTRIBUTION WIDTH 16.7 % (11.0-15.5); WHITE BLOOD COUNT 5.8 X10e3 (4.0-10.5)
[2017-05-21 06:46] LABS: ALBUMIN SERUM 1.9 g/dL (3.5-5.0); BILIRUBIN,TOTAL 0.4 mg/dL (0.2-2.0); BUN/CREATININE RATIO 32.5; CALCIUM SERUM 8.3 mg/dL (8.4-10.2); CREATININE SERUM 0.4 mg/dL (0.6-1.4); MAGNESIUM 1.6 mg/dL (1.6-3.0); PHOSPHOROUS 4.3 mg/dL (2.5-4.6); PROTEIN TOTAL SERUM 5.4 g/dL (6.0-8.3)
[2017-05-22 05:25] LABS: HEMATOCRIT 27.5 % (38.0-50.0); HEMOGLOBIN 9.2 gm/dL (13.0-16.0); MEAN CELL VOLUME 88.7 FL (83-96); MEAN CORPUSCULAR HEMOGLOBIN 29.6 PG (28-34); MEAN CORPUSCULAR HGB CONC 33.4 g/dL (30-36); MEAN PLATELET VOLUME 7.8 FL (6.5-11.5); RED BLOOD COUNT 3.1 X10e (3.90-5.60); RED CELL DISTRIBUTION WIDTH 16.7 % (11.0-15.5)
[2017-05-22 06:45] LABS: CREATININE SERUM 0.5 mg/dL (0.6-1.4); GLOM FILT RATE Estimated 119.5 mL/min (>60); MAGNESIUM 1.8 mg/dL (1.6-3.0); POTASSIUM 3.9 mmol/L (3.5-5.1)
[2017-05-22] MEDS ORDERED: ACETAMINOPHEN650 M4 PO (12:10)
== END 2017-05-22 15:26 | disposition home or self-care (01) | DRG 335 ==
LOC: CED 12:08 → CEDOF 17:34 → C2A 17:34 → CED 17:34 → CEDOF 18:13 → C5B 05-15 18:46 → CEDOF 05-15 18:46 → C5B 05-16 20:40 → C2A 05-16 20:40
PROVIDERS: Emergency Medicine; Family Medicine; Internal Medicine; Surgery
PROC: 0DNW0ZZ Release Peritoneum, Open Approach (ICD-10-PCS; 2017-05-16)
PROC: 0DN80ZZ Release Small Intestine, Open Approach (ICD-10-PCS; 2017-05-16)
PROC: 0W9G0ZZ Drainage of Peritoneal Cavity, Open Approach (ICD-10-PCS; 2017-05-16)
PROC: 0DNS0ZZ (ICD-10-PCS; principal; 2017-05-16 07:30)
PROC: 02HV33Z Insertion of Infusion Device into Superior Vena Cava, Percutaneous Approach (ICD-10-PCS; 2017-05-17)
PROC: 4A02X4A Measurement of Cardiac Electrical Activity, Guidance, External Approach (ICD-10-PCS; 2017-05-17)
PROC: 30243J1 Transfusion of Nonautologous Serum Albumin into Central Vein, Percutaneous Approach (ICD-10-PCS; 2017-05-20)
DX: K56.5 Intestinal adhesions [bands] with obstruction (postinfection) (principal); E43 Unspecified severe protein-calorie malnutrition; R64 Cachexia; N17.9 Acute kidney failure, unspecified; R18.8 Other ascites; E87.1 Hypo-osmolality and hyponatremia; K74.60 Unspecified cirrhosis of liver; Z68.1 Body mass index [BMI] 19.9 or less, adult; K86.1 Other chronic pancreatitis; R62.7 Adult failure to thrive; E87.6 Hypokalemia; J44.9 Chronic obstructive pulmonary disease, unspecified; I10 Essential (primary) hypertension; F10.10 Alcohol abuse, uncomplicated; D53.9 Nutritional anemia, unspecified; F17.200 Nicotine dependence, unspecified, uncomplicated
CPT/HCPCS: 36415; 74000; 74176; 80048; 80053; 80076; 81003; 82150; 82947; 83605; 83690; 83735; 84100; 84134; 84478; 85025; 85027; 86850; 86900; 86901; 86923; 90732; 94760; 96365; 96375; 99291; G0009; J0330; J1100; J1170; J1885; J2250; J2270; J2405; J2543; J2710; J3010; J3475; P9047

== ENCOUNTER → 2017-06-04 | Day surgery (SDC) | payer OTHER ==
[~2017-06-04] MED LIST changes: +ACETAMINOPHEN650 M4 PO; +ALBUTEROL17 GM INH; +ALDACTONE PO; +GAS RELIEF 8080 M1 PO; +IPRATR-ALBUTEROL3 ML NEB; +LINZESS145 MCG PO; +LORTAB 5-325 M1 EACH PO; +PATIENT'S PHARMACY; +PROTONIX PO; +SEROQUEL PO
--- NOTE | ~2017-06-04 | CR84 ---
[facility] A Service of [facility] RADIOLOGY TEXT RESULTS PATIENT: JAVI RODRIGUEZ LOCATION: [facility] : 58 UNIT #: [id number] AGE: [address]: Andre Lino MD SEX: M ORDER DR: [id number] [facility] [address] [facility]. [place], [place] [address] [id number] O MR#: [id number] Acc #: [id number] NAME: JAVI RODRIGUEZ : 1960 SEX: M STUDY DATE/TIME: 06/04/2017 10:48 UNIT: BUS BOY ROOM: STUDY DESCRIPTION: CR ERCP Biliary and Pancr SI Attending Physician: Andre Lino M.D. Ordering Physician: Andre Lino M.D. Primary Care Physician: Noe Alexandre M.D. MEDICAL IMAGING REPORT This report is preliminary unless electronic signature is present EXAM ERCP with fluoroscopy 06/04/2017 HISTORY 57-year-old male with previous history of chronic calcific pancreatitis. CBD stricture. COMPARISON ERCP 03/26/2017. FINDINGS 6 spot fluoroscopic images were obtained during ERCP procedure performed by Dr. Lino. Fluoroscopy time 1 minute, 9 seconds was documented. Contrast was injected into the common bile duct. No residual recurrent stricture is identified. Normal appearance of intrahepatic bile ducts. No intraluminal filling defect or evidence of retained stone. Contrast flows into the adjacent duodenum. Pancreatic duct was not sought. Please refer to the endoscopist's report for additional findings and recommendations. Dictated by... Mae West M.D. THIS IS AN ELECTRONICALLY VERIFIED REPORT Mae West M.D. at 06/05/2017 1:54 PM LLH/chip TD: 06/04/2017 21:28 JOB #: [id number] [facility] A Service of [facility] RADIOLOGY TEXT RESULTS PATIENT: JAVI RODRIGUEZ LOCATION: [facility] : 58 UNIT #: [id number] AGE: [address]: Andre Lino MD SEX: M ORDER DR: MEDICAL IMAGING REPORT Page 1 of 1 COPY
--- NOTE | ~2017-06-04 | OR ---
Unit #: [id number] #: [id number] Patient: JAVI RODRIGUEZ [id number] [address] [address] [id number] O MR#: [id number] NAME: JAVI RODRIGUEZ ROOM: Date of Procedure: 06/04/2017 Admission Date: 06/04/2017 Surgeon: Andre Lino M.D. : 1960 Attending Physician: Andre Lino M.D. Primary Care Physician: Noe Alexandre M.D. OPERATIVE REPORT PREOPERATIVE DIAGNOSES The patient has come for elective endoscopic retrograde cholangiopancreatography and biliary stent removal. The biliary stent was placed because, the patient had a stricture in the intrapancreatic portion of the pancreatic common bile duct. PROCEDURE PERFORMED Endoscopic retrograde cholangiopancreatography and stent removal. POSTOPERATIVE DIAGNOSES The biliary stent was seen in normal position. It was removed using a polypectomy snare and delivered outside. The contrast cholangiogram showed normal cholangiogram. Using a 9 to 12 mm retrieval balloon, the common bile duct was swept with a balloon at 9 and 10 mm pressures 2 to 3 times, and no residual stricture was seen. The scope and the accessories were then withdrawn. The previously seen biliary stricture looks normal now. RECOMMENDATIONS No further intervention is indicated. The patient will be followed up in the office in 3 to 4 months' time. SEDATION USED MAC. DESCRIPTION OF PROCEDURE Following detailed explanation of potential risks and complications of an ERCP, namely perforation, bleeding, and complication related to sedation, the patient was brought to GI lab and laid in the left semiprone position. A lateral-viewing duodenoscope was advanced through the oral cavity into the esophagus and advanced into the stomach. Pylorus was intubated in the usual fashion. The scope was advanced in deep descending duodenum. Upon shortening the scope, major papilla and ampulla area was visualized en face with an indwelling biliary stent in normal position. The stent was removed using a polypectomy snare and delivered outside. The patient was then reintubated and through the previous sphincterotomy site, a guidewire was advanced in the common bile duct. Contrast cholangiogram was obtained that showed decompressed common bile duct and the area of the stricture appeared to be open. A 9 to 12 mm retrieval balloon was then used and the duct was swept 3 times at 9 and 10 mm settings. No stricture was noted and no stones or debris were delivered. A normal occlusion cholangiogram was demonstrated. The scope and the accessories were then withdrawn. The Unit #: [id number] #: [id number] Patient: JAVI RODRIGUEZ patient returned to the recovery area. He tolerated the procedure without any postprocedure complications. Dictated by... Alex Wang/rocky TD: 06/04/2017 13:45 JOB #: [id number] CC: Noe Alexandre M.D. OPERATIVE REPORT Page 1 of 1 X Andre Lino MD X PROCEDURE OPERATIVE NOTE
== END | disposition home or self-care (01) ==
LOC: COPS 09:09
DX: Z46.59 Encounter for fitting and adjustment of other gastrointestinal appliance and device (principal); J43.9 Emphysema, unspecified; Z87.01 Personal history of pneumonia (recurrent); Z87.891 Personal history of nicotine dependence; Z79.899 Other long term (current) drug therapy
CPT/HCPCS: 74330; J1610; J2250